=== PATIENT | male | born 1995 | race Caucasian/White ===

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

== ENCOUNTER 2017-01-03 02:57 | Emergency (ER) | payer OTHER ==
[2017-01-03 04:26] VITALS: BP 149/87
--- NOTE | 2017-01-03 04:39 | ED GENERAL ADULT ---
History of Present Illness General Chief Complaint: General Adult Stated Complaint: "REALLY DIZZY AND NAUSEOUS" X ONE WEEK PER PT Source: patient Exam Limitations: no limitations Vital Signs & Intake/Output Vital Signs & Intake/Output Vital Signs Date Time Temp Pulse Resp B/P Pulse O2 O2 Flow FiO2 Ox Delivery Rate 01/03 0426 100 22 149/87 97 Room Air Allergies Coded Allergies: NO KNOWN ALLERGIES (11/16/16) Reconcile Medications Ondansetron (Zofran Odt) 4 MG TAB.RAPDIS 1 TAB SL TID PRN nausea Triage Note: PER PT FEELING BAD AGAIN " I HAVE DONE EVERYTHING YOU TOLD ME TOO BUT IT STILL HAPPENS Triage Nurses Notes Reviewed? yes Onset: Gradual Duration: waxing and waning, months to years of similar symptoms Injury Environment: home Severity: moderate Modifying Factors: Improves With: rest. Associated Symptoms: anxiety and tremors HPI: 21 yo gentleman with a history of anxiety and tremors presents with sudden onset of a recurrence of anxiety. "I woke up and my hands were shaking real bad.... I am worried that something is really the matter." He notes that he is not taking any medications at the present. He denies SI/HI/ drug use. He is otherwise well. Past History Travel History Traveled to [place] past 21 day No Medical History Any Pertinent Medical History? 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 No Review of Systems Review of Systems Constitutional: Reports: no symptoms. EENTM: Reports: no symptoms. Respiratory: Reports: no symptoms. Cardiovascular: Reports: no symptoms. GI: Reports: no symptoms. Genitourinary: Reports: no symptoms. Musculoskeletal: Reports: no symptoms. Skin: Reports: no symptoms. Neurological/Psychological: Reports: no symptoms. Hematologic/Endocrine: Reports: no symptoms. Immunologic/Allergic: Reports: no symptoms. All Other Systems: Reviewed and Negative Physical Exam Physical Exam General Appearance: well developed/nourished, mild distress Head: atraumatic, normal appearance Eyes: Bilateral: normal appearance, PERRL, EOMI. Ears, Nose, Throat: normal pharynx, normal ENT inspection Neck: normal inspection, supple, full range of motion Respiratory: normal breath sounds, chest non-tender, no respiratory distress, quiet respiration, lungs clear Cardiovascular: regular rate/rhythm Gastrointestinal: normal bowel sounds, soft, non-tender, no organomegaly Back: normal inspection, normal range of motion Extremities: normal inspection, normal capillary refill Neurologic/Psych: no motor/sensory deficits, awake, alert, oriented x 3, anxious Reflexes: 1+: bicep (R), bicep (L), knee (R), knee (L). Skin: intact, normal color, warm/dry Comments: cn II-XII intact bilaterally. fluid finger to nose bilaterally. Core Measures ACS in differential dx? No CVA/TIA Diagnosis: No Severe Sepsis Present: No Septic Shock Present: No Progress Differential Diagnoses I considered the following diagnoses in my evaluation of the patient: panic vs depression vs other. Plan of Care: discussed at length... see below. Initial ED EKG: none Departure Departure Disposition: HOME OR SELF CARE Condition: Stable Clinical Impression Primary Impression: Dizziness Secondary Impressions: Anxiety Referrals: VINITA LOVE,CLIVE Thompson (PCP/Family) Departure Forms: Customer Survey General Discharge Information Comments benign exam, consistent with prior episodes... i encouraged close follow up with IOP and referred to neuro per patient interest. Critical Care Note Critical Care Note Critical Care Time: non-applicable
[2017-01-04] MEDS ORDERED: ATIVAN1 M1 PO (06:30)
== END 2017-01-03 05:35 ==
LOC: ERH 02:57
DX: R42 Dizziness and giddiness (principal); F41.9 Anxiety disorder, unspecified

== ENCOUNTER 2017-01-04 04:56 | Emergency (ER) | payer OTHER ==
[~2017-01-04] VITALS: Ht 170.2 cm; Wt 61.2 kg
--- NOTE | 2017-01-04 05:00 | ED GENERAL ADULT ---
History of Present Illness General Chief Complaint: Nausea, Vomiting, Diarrhea Stated Complaint: NAUSEOUS Source: patient, old records, EMS Exam Limitations: no limitations Vital Signs & Intake/Output Vital Signs & Intake/Output Vital Signs Date Time Temp Pulse Resp B/P Pulse O2 O2 Flow FiO2 Ox Delivery Rate 01/04 0602 Room Air 01/04 0459 104 22 156/91 100 Room Air Allergies Coded Allergies: NO KNOWN ALLERGIES (11/16/16) Reconcile Medications Lorazepam (Ativan) 1 MG TABLET 1 TAB PO BID PRN ANXIETY TEN...[id number] Ondansetron (Zofran Odt) 4 MG TAB.RAPDIS 1 TAB SL TID PRN nausea Triage Nurses Notes Reviewed? yes Onset: Abrupt Duration: week(s):, waxing and waning Timing: recent history Injury Environment: home Severity: moderate Modifying Factors: Improves With: rest. Associated Symptoms: "I feel anxious... I feel dizzy." HPI: 21 yo gentleman with recurrent anxiety presents with tremors, anxiety, dizziness. He shares that he has tried many medications and has seen many providers and psychiatrist "and nothing helps... no medications have helped.... I think something is really wrong with me." He was seen last night and was referred to the neurologist. He did not yet call for the neurologist. He denies SI/HI/hallucinations. Past History Medical History Any Pertinent Medical History? 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 No Review of Systems Review of Systems Constitutional: Reports: no symptoms. EENTM: Reports: no symptoms. Respiratory: Reports: no symptoms. Cardiovascular: Reports: no symptoms. GI: Reports: no symptoms. Genitourinary: Reports: no symptoms. Musculoskeletal: Reports: no symptoms. Skin: Reports: no symptoms. Neurological/Psychological: Reports: no symptoms. Hematologic/Endocrine: Reports: no symptoms. Immunologic/Allergic: Reports: no symptoms. All Other Systems: Reviewed and Negative Physical Exam Physical Exam General Appearance: well developed/nourished, alert, awake, anxious, mild distress Head: atraumatic, normal appearance Eyes: Bilateral: normal appearance, PERRL, EOMI. Ears, Nose, Throat: normal pharynx, normal ENT inspection Neck: normal inspection, supple, full range of motion Respiratory: normal breath sounds, chest non-tender, no respiratory distress, quiet respiration, lungs clear Cardiovascular: regular rate/rhythm Gastrointestinal: normal bowel sounds, soft, non-tender, no organomegaly Back: normal inspection, normal range of motion Extremities: normal inspection, normal capillary refill, normal range of motion, no edema Neurologic/Psych: no motor/sensory deficits, awake, alert, oriented x 3 Skin: intact, normal color, warm/dry Core Measures ACS in differential dx? No CVA/TIA Diagnosis: No Severe Sepsis Present: No Septic Shock Present: No Progress Differential Diagnoses I considered the following diagnoses in my evaluation of the patient: anxiety vs other psychiatric diagnosis vs other. Plan of Care: Current Medications Sig/Kirill Start time Last Medication Dose Stop Time Status Admin Lorazepam 0.5 MG ONE ONE 01/04 630 UNVr (Ativan) 01/04 631 discussed at great length with patient. (KINSEY LOVE,JUVENTINO Jeff) Initial ED EKG: none Departure Departure Disposition: HOME OR SELF CARE Condition: Stable Clinical Impression Primary Impression: Dizziness Secondary Impressions: Anxiety Referrals: VINITA LOVE,CLIVE Thompson (PCP/Family) Departure Forms: Customer Survey General Discharge Information Prescriptions: Current Visit Scripts Lorazepam (Ativan) 1 TAB PO BID PRN ANXIETY #10 TAB TEN...[id number] Comments 01/04/17, 5:17am... pt returns with similar symptoms... of note, he has been to the ED 39 times this year with negative lab work up x 8. He has declined to follow up with psychiatry and neurology. He has an appointment to see his department specialist tomorrow. 01/04/17, 6:31am... pt feeling better. he will follow up with his department specialist. he will try ativan prior to coming to ed. he denies si/hi. Critical Care Note Critical Care Note Critical Care Time: non-applicable
[2017-01-04] MEDS ORDERED: ATIVAN1 M1 PO (06:30)
[2017-01-04 06:38] VITALS: BP 131/82
== END 2017-01-04 06:39 ==
LOC: ERH 04:56
DX: R42 Dizziness and giddiness (principal); F41.9 Anxiety disorder, unspecified

== ENCOUNTER 2017-01-29 04:10 | Emergency (ER) | payer OTHER ==
[~2017-01-29] VITALS: Ht 170.2 cm; Wt 63.5 kg
--- NOTE | 2017-01-29 04:18 | ED GENERAL ADULT ---
History of Present Illness General Chief Complaint: General Adult Stated Complaint: VOMITING ? BURRITO "JUST RETURNED FROM [place]" Source: patient Exam Limitations: no limitations Vital Signs & Intake/Output Vital Signs & Intake/Output Vital Signs Date Time Temp Pulse Resp B/P Pulse O2 O2 Flow FiO2 Ox Delivery Rate 01/29 0420 97.2 86 18 145/85 95 Allergies Coded Allergies: NO KNOWN ALLERGIES (11/16/16) Reconcile Medications Lorazepam (Ativan) 1 MG TABLET 1 TAB PO BID PRN anxiety ten....[id number] Ondansetron (Zofran Odt) 4 MG TAB.RAPDIS 1 TAB SL TID PRN anxiety Triage Nurses Notes Reviewed? yes Onset: Gradual Duration: day(s): Timing: recent history Injury Environment: on a vacation to [place] Severity: mild Modifying Factors: Improves With: rest. Associated Symptoms: vomiting HPI: 21 yo gentleman with history disorader and frequent visitis to ED, presents with 3 days of intermittent vomiting and anxiety. He notes that he ate a burrito 4 days ago. The next day, he developed vomiting and nausea, without diarrhea, fever, chills. He notes, "I know that I am having another anxiety attack." He is doing better presently, last vomiting was yesterday. Past History Medical History Any Pertinent Medical History? 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 No Review of Systems Review of Systems Constitutional: Reports: no symptoms. EENTM: Reports: no symptoms. Respiratory: Reports: no symptoms. Cardiovascular: Reports: no symptoms. GI: Reports: no symptoms. Genitourinary: Reports: no symptoms. Musculoskeletal: Reports: no symptoms. Skin: Reports: no symptoms. Neurological/Psychological: Reports: no symptoms. Hematologic/Endocrine: Reports: no symptoms. Immunologic/Allergic: Reports: no symptoms. All Other Systems: Reviewed and Negative Physical Exam Physical Exam General Appearance: well developed/nourished, no apparent distress Head: atraumatic, normal appearance Eyes: Bilateral: normal appearance. Ears, Nose, Throat: normal pharynx, normal ENT inspection Neck: normal inspection, supple, full range of motion Respiratory: normal breath sounds, chest non-tender, no respiratory distress, quiet respiration, lungs clear Cardiovascular: regular rate/rhythm Gastrointestinal: normal bowel sounds, soft, non-tender, no organomegaly Back: normal inspection Extremities: normal inspection, normal capillary refill, normal range of motion Neurologic/Psych: no motor/sensory deficits, awake, alert, oriented x 3 Skin: intact, normal color, warm/dry Core Measures ACS in differential dx? No CVA/TIA Diagnosis: No Severe Sepsis Present: No Septic Shock Present: No Progress Differential Diagnoses I considered the following diagnoses in my evaluation of the patient: food poisoning vs anxiety vs other. Plan of Care: well appearing in ED with benign exam... wrote rx for supportive medications and encouraged close follow up with [facility] and pmd. Initial ED EKG: none Departure Departure Disposition: HOME OR SELF CARE Condition: Stable Clinical Impression Primary Impression: Anxiety Secondary Impressions: Vomiting Referrals: VINITA LOVE,CLIVE Thompson (PCP/Family) Departure Forms: Customer Survey General Discharge Information Prescriptions: Current Visit Scripts Ondansetron (Zofran Odt) 1 TAB SL TID PRN anxiety #10 TAB Lorazepam (Ativan) 1 TAB PO BID PRN anxiety #10 TAB ten....[id number] Critical Care Note Critical Care Note Critical Care Time: non-applicable
[2017-01-29 04:20] VITALS: BP 145/85
[2017-01-29] MEDS ORDERED: ATIVAN1 M1 PO (04:40)
[2017-01-29] MEDS ORDERED: ZOFRAN ODT4 M1 SL (04:40)
== END 2017-01-29 04:50 ==
LOC: ERH 04:10
DX: F41.9 Anxiety disorder, unspecified (principal); R11.10 Vomiting, unspecified
CPT/HCPCS: J3101

== ENCOUNTER 2017-02-14 02:06 | Emergency (ER) | payer OTHER ==
[~2017-02-14] VITALS: Ht 172.7 cm; Wt 54.4 kg
[2017-02-14 03:24] VITALS: BP 133/93
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
== END 2017-02-14 04:22 ==
LOC: ERH 02:06
DX: F41.9 Anxiety disorder, unspecified (principal); W51.XXXA Accidental striking against or bumped into by another person, initial encounter; Y93.71 Activity, boxing; Y92.9 Unspecified place or not applicable

== ENCOUNTER 2017-02-21 00:45 | Emergency (ER) | payer OTHER ==
[~2017-02-21] VITALS: Ht 170.2 cm; Wt 61.2 kg
[2017-02-21 01:07] VITALS: BP 137/83
--- NOTE | 2017-02-21 02:08 | CT SCAN REPORT ---
EXAMINATION: NONCONTRAST HEAD CT NONCONTRAST CERVICAL SPINE CT INDICATION INFORMATION: Head injury. Pain. COMPARISON: 11/14/2016 TECHNIQUE: Separate noncontrast CT examinations of the head and cervical spine were performed. Coronal and sagittal images were created for each examination at the technologist workstation. FINDINGS: Head: There is no evidence of acute intracranial hemorrhage or territorial infarction. No abnormal mass effect or midline shift is seen. Simental to white matter differentiation is well preserved. No extra-axial fluid collections are identified. No hydrocephalus. No significant volume loss. There is no abnormal attenuation within the brain parenchyma. The osseous structures and soft tissues are normal. The mastoid air cells and visualized portions of the paranasal sinuses are well aerated. Cervical spine: There is anatomic alignment of the vertebral bodies and posterior elements. The atlantoaxial and atlantooccipital articulations are intact. Vertebral body heights and intervertebral disc spaces are maintained. No evidence of acute fracture. No prevertebral soft tissue swelling. Visualized portions of the lung apices are unremarkable. The thyroid gland is unremarkable. IMPRESSION: 1. No acute intracranial findings. 2. No acute cervical spine fracture or malalignment..
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
== END 2017-02-21 02:40 ==
LOC: ERH 00:45
DX: S06.0X0A Concussion without loss of consciousness, initial encounter (principal); W50.1XXA Accidental kick by another person, initial encounter; Y93.75 Activity, martial arts; Y92.9 Unspecified place or not applicable

== ENCOUNTER 2017-02-25 21:32 | Emergency (ER) | payer OTHER ==
[~2017-02-25] VITALS: Ht 170.2 cm; Wt 61.2 kg
[2017-02-25 22:39] LABS: ABSOLUTE BASOPHIL COUNT 0 /CUMM (0.0-0.2); ABSOLUTE EOSINOPHIL COUNT 0.2 /CUMM (0.0-0.7); ABSOLUTE GRANULOCYTE CT 6.7 /CUMM (1.4-6.5); ABSOLUTE LYMPH COUNT 2.3 /CUMM (1.2-3.4); ABSOLUTE MONOCYTE COUNT 0.9 /CUMM (0.10-0.60); BASOPHIL % 0.4 % (0.0-2.0); EOSINOPHIL % 1.6 % (0-5); GRANULOCYTE % 66.3 % (42.2-75.2); HEMATOCRIT 46.9 % (42-52); MEAN CORPUSCULAR HGB 28.8 PG (27.0-31.0); MEAN CORPUSCULAR HGB CONC 33.2 G/DL (33.0-37.0); MEAN CORPUSCULAR VOLUME 86.8 FL (80.0-94.0); MEAN PLATELET VOLUME 7.9 FL (7.4-10.4); PLATELET COUNT 237 /CUMM (130-400); RBC DISTRIBUTION WIDTH 13.9 % (11.5-14.5); RED BLOOD CELL CT 5.41 /CUMM (4.70-6.10); WHITE BLOOD CELL COUNT 10.1 /CUMM (4.8-10.8)
--- NOTE | 2017-02-25 22:56 | RADIOLOGY REPORT ---
EXAMINATION: XR CHEST CLINICAL INFORMATION: Chest pain COMPARISON: Chest x-ray 05/13/2016 TECHNIQUE: 2 views of the chest were obtained. FINDINGS: No significant abnormality is noted involving the heart, lungs, mediastinum, bony thorax or soft tissues. IMPRESSION: Unremarkable examination.
[2017-02-26 00:30] VITALS: BP 138/69
--- NOTE | 2017-02-26 00:39 | ED CARDIAC/CP/PALPITATIONS ---
History of Present Illness General Chief Complaint: General Adult Stated Complaint: CHEST PAIN, DIFF BREATHING Source: patient, old records Exam Limitations: no limitations Vital Signs & Intake/Output Vital Signs & Intake/Output Vital Signs Date Time Temp Pulse Resp B/P B/P Pulse O2 O2 Flow FiO2 Mean Ox Delivery Rate 02/257 97.8 81 18 144/87 100 Room Air ED Intake and Output 02/26 0000 02/25 1200 Intake Total Output Total Balance Patient 135 lb Weight Weight Reported by Patient Measurement Method Allergies Coded Allergies: NO KNOWN ALLERGIES (11/16/16) Reconcile Medications No Known Home Medications Triage Note: PT TO TRIAGE WITH C/O MIDSTERNAL CHEST PAIN 5/10 ON/OFF FOR 3 DAYS, SOB AND NAUSEA. PT STATES IT COULD BE BECAUSE OF ANXIETY. VSS. NO RESP DISTRESS NOTED IN TRIAGE. PT WAS SEEN IN ER FOR SAME 5 DAYS AGO. Triage Nurses Notes Reviewed? yes HPI: Patient presents for evaluation of severe intermittent chest pain episodes that began abruptly about 3 days ago. Patient states he episodes last about 30-60 seconds and occur less than 1-2 times per day. He states during that time however he has felt more or less constantly short of breath and nauseous. He denies any drug or alcohol use. He is beginning to suspect that the underlying cause for his symptoms is anxiety but he states he does not wish to take any medication for this. He has counseling instead. Past History Travel History Traveled to [place] past 21 day No Medical History Any Pertinent Medical History? 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 No Review of Systems Review of Systems Constitutional: Reports: no symptoms. EENTM: Reports: no symptoms. Respiratory: Reports: short of breath. Cardiovascular: Reports: chest pain. GI: Reports: no symptoms. Genitourinary: Reports: no symptoms. Musculoskeletal: Reports: no symptoms. Skin: Reports: no symptoms. Neurological/Psychological: Reports: no symptoms. Hematologic/Endocrine: Reports: no symptoms. Immunologic/Allergic: Reports: no symptoms. All Other Systems: Reviewed and Negative Physical Exam Physical Exam Cardiovascular: see below Comments: Gen.: Well-nourished, well-developed, no acute respiratory distress. Head: Normocephalic, atraumatic. Eyes: Normal inspection bilaterally Ears: Normal inspection bilaterally Nose: Normal inspection Throat/mouth : Moist mucosa Neck: Supple, full range of motion, no goiter Heart: Regular rate and rhythm, no murmurs rubs or gallops Lungs: Clear to auscultation bilaterally with normal air entry Chest: Nontender Back: Normal range of motion Abdomen: Soft, nontender, nondistended, normal bowel sounds Extremities: Normal range of motion grossly, equal radial pulses, no cyanosis clubbing or edema Neurologic: Cranial nerves grossly intact, speech is clear Skin: warm and dry Psychiatric: Calm, cooperative, no apparent delusions or hallucinations, anxious appearing, bouncing knees Core Measures ACS in differential dx? No Severe Sepsis Present: No Septic Shock Present: No Progress Differential Diagnosis: hyperventilation, pericarditis, pneumonia, pneumothorax, anxiety Plan of Care: Orders Procedure Date/time Status TROPONIN LEVEL 02/25 2218 Complete MAGNESIUM 02/25 2218 Complete CBC WITHOUT DIFFERENTIAL 02/25 2218 Complete BASIC METABOLIC PANEL 02/25 2218 Complete EKG 02/25 2218 Active Laboratory Tests 02/25/17 2231: Anion Gap 13, Estimated GFR > 60, BUN/Creatinine Ratio 21.8, Glucose 83, Calcium 9.5, Magnesium 1.7, Troponin I < 0.01, CBC w Diff NO MAN DIFF REQ, RBC 5.41, MCV 86.8, MCH 28.8, RDW 13.9, MPV 7.9, Gran % 66.3, Lymphocytes % 23.1, Monocytes % 8.6, Eosinophils % 1.6, Basophils % 0.4, Absolute Granulocytes 6.7 H, Absolute Lymphocytes 2.3, Absolute Monocytes 0.9 H, Absolute Eosinophils 0.2, Absolute Basophils 0, PUBS MCHC 33.2 Diagnostic Imaging: Discussed w/RAD: Radiology Read. CXR Impression: PATIENT: GERMÁN MONTES JR PRESENT AGE: 21 PATIENT ACCOUNT NO: [id number] : 97 LOCATION: [facility] ORDERING PHYSICIAN: GISELL VILLALTA MD SERVICE DATE: 02/25/17-2217 EXAM TYPE: RAD - XRY-CHEST XRAY, PA AND LATERAL EXAMINATION: XR CHEST CLINICAL INFORMATION: Chest pain COMPARISON: Chest x-ray 05/13/2016 TECHNIQUE: 2 views of the chest were obtained. FINDINGS: No significant abnormality is noted involving the heart, lungs, mediastinum, bony thorax or soft tissues. IMPRESSION: Unremarkable examination. DICTATED BY: DONTA COLES MD DATE/TIME DICTATED:02/25/172251 IT QUALITY ANALYST:DAVID DATE/TIME TRANSCRIBED:02/25/172251 CONFIDENTIAL, DO NOT COPY WITHOUT APPROPRIATE AUTHORIZATION. <Electronically signed in Other Vendor System> SIGNED BY: DONTA OCLES MD 02/25/172255 Initial ED EKG: NSR, rate (77), LVH (probable), rsr' in v1-2 Prior EKG: changed (no rsr' on prior) Departure Departure Disposition: HOME OR SELF CARE Condition: Stable Clinical Impression Primary Impression: Anxiety Referrals: TUAN LOVE,VANESSA Kerr (PCP/Family) Additional Instructions: Xanax as prescribed. Follow-up with Dr. Hernandez on Tuesday for reevaluation. Return if any concerns or sudden worsening. Departure Forms: Customer Survey General Discharge Information Prescriptions: Current Visit Scripts Alprazolam (Xanax) 1 TAB PO BIDP PRN anxiety #10 TAB Critical Care Note Critical Care Note Critical Care Time: non-applicable
[2017-02-26] MEDS ORDERED: XANAX0.25 M1 PO (00:56)
== END 2017-02-26 01:09 ==
LOC: ERH 21:32
PROVIDERS: Emergency Medicine
DX: F41.9 Anxiety disorder, unspecified (principal); R07.89 Other chest pain
CPT/HCPCS: 93005; 93010

== ENCOUNTER 2017-02-28 21:00 | Emergency (ER) | payer OTHER ==
[~2017-02-28] VITALS: Ht 170.2 cm; Wt 61.2 kg
--- NOTE | 2017-02-28 21:46 | ED GENERAL ADULT ---
History of Present Illness General Chief Complaint: General Adult Stated Complaint: "JAW PAIN, LEGS FEEL HEAVY" Source: patient Exam Limitations: no limitations Vital Signs & Intake/Output Vital Signs & Intake/Output Vital Signs Date Time Temp Pulse Resp B/P B/P Pulse O2 O2 Flow FiO2 Mean Ox Delivery Rate 02/28 2233 98.0 73 17 132/83 97 Room Air 02/29 2212 Room Air 02/29 2124 98.0 77 18 138/89 99 Room Air Allergies Coded Allergies: NO KNOWN ALLERGIES (11/16/16) Reconcile Medications Alprazolam (Xanax) 0.25 MG TABLET 1 TAB PO BIDP PRN anxiety Triage Note: PT ED C/O JAW PAIN, LEGS FEELING HEAVY WITH TROUBLE WALKING AND TINGELING IN THE FACE. SAW PCP TODAY, LABS WERE NORMAL. DENIES PAIN IN TRIAGE "I THINK I'M GOING TO HAVE A STROKE" ALL NEUROS INTACT. HAS RECENTLY CUT BACK ON FOOD INTAKE "TO MAKE WEIGHT" FOR MMA. "BUT MY LABS WERE GOOD TODAY" Triage Nurses Notes Reviewed? yes Onset: Gradual Duration: week(s):, waxing and waning Timing: recent history Injury Environment: home Severity: mild Modifying Factors: Improves With: rest. Associated Symptoms: anxiety HPI: 21 yo gentleman presents with a constellation of symptoms including dizziness, anxiety, nausea, off and on, for the past several months. He notes that he has been following up with his doctor, sees a counselor, and does "everything I'm supposed to do." He notes that he is able to drink, ambulate, think without problem. He is otherwise well. Denies Si/HI/hallucinations/anxiety. Past History Travel History Traveled to [place] past 21 day No Medical History Any Pertinent Medical History? 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 No Review of Systems Review of Systems Constitutional: Reports: no symptoms. EENTM: Reports: no symptoms. Respiratory: Reports: no symptoms. Cardiovascular: Reports: no symptoms. GI: Reports: no symptoms. Genitourinary: Reports: no symptoms. Musculoskeletal: Reports: no symptoms. Skin: Reports: no symptoms. Neurological/Psychological: Reports: no symptoms. Hematologic/Endocrine: Reports: no symptoms. Immunologic/Allergic: Reports: no symptoms. All Other Systems: Reviewed and Negative Physical Exam Physical Exam General Appearance: well developed/nourished, no apparent distress Head: atraumatic, normal appearance Eyes: Bilateral: normal appearance. Ears, Nose, Throat: normal pharynx, normal ENT inspection Neck: normal inspection, supple, full range of motion Respiratory: normal breath sounds, chest non-tender, no respiratory distress, quiet respiration, lungs clear Cardiovascular: regular rate/rhythm Gastrointestinal: normal bowel sounds, soft, non-tender Back: normal inspection Extremities: normal inspection, normal capillary refill, normal range of motion, no edema Neurologic/Psych: no motor/sensory deficits, awake, alert, oriented x 3 Skin: intact, normal color Core Measures ACS in differential dx? No CVA/TIA Diagnosis: No Severe Sepsis Present: No Septic Shock Present: No Progress Differential Diagnoses I considered the following diagnoses in my evaluation of the patient: vertigo vs other. Plan of Care: benign exam, normal labs on february 25... pt referred to pmd... see below. Initial ED EKG: none Departure Departure Disposition: HOME OR SELF CARE Condition: Stable Clinical Impression Primary Impression: Dizziness Secondary Impressions: Anxiety Referrals: TUAN LOVE,VANESSA Kerr (PCP/Family) Departure Forms: Customer Survey General Discharge Information Comments normal labs on february 25, 2017... benign exam... pt stable for follow up with pmd. I offered meclizine, zofran. He declines. Critical Care Note Critical Care Note Critical Care Time: non-applicable
[2017-02-28 22:33] VITALS: BP 132/83
== END 2017-02-28 22:37 ==
LOC: ERH 21:00
DX: R42 Dizziness and giddiness (principal); F41.9 Anxiety disorder, unspecified

== ENCOUNTER 2017-03-04 02:53 | Emergency (ER) | payer OTHER ==
[~2017-03-04] VITALS: Ht 175.3 cm; Wt 61.2 kg
[2017-03-04 03:14] VITALS: BP 147/94
--- NOTE | 2017-03-04 04:03 | ED PSYCHIATRIC COMPLAINT ---
History of Present Illness General Chief Complaint: General Adult Stated Complaint: "+N+V-D, VOMITING SINCE 1700,DIZZY,BLURRED VISION" Source: patient, old records Exam Limitations: no limitations Vital Signs & Intake/Output Vital Signs & Intake/Output Vital Signs Date Time Temp Pulse Resp B/P B/P Pulse O2 O2 Flow FiO2 Mean Ox Delivery Rate 03/04 0314 98.9 82 18 147/94 97 Room Air Allergies Coded Allergies: NO KNOWN ALLERGIES (11/16/16) Reconcile Medications Alprazolam (Xanax) 0.25 MG TABLET 1 TAB PO BIDP PRN anxiety Triage Note: PT TO ED C/O NAUSEA AND BLURRY VISION. Triage Nurses Notes Reviewed? yes Onset: Just prior to arrival Duration: hour(s):, constant, continues in ED Timing: recent history Severity: severe Associated Symptoms: anxiety, impaired concentration HPI: Several hours prior to admission patient with with friend was mother he then became sick to his stomach with nausea vomiting blurry vision increased anxiety and dread. He denies fever chills chest pain shortness of breath diarrhea abdominal pain dysuria rash bleeding suicidal ideation homicidal ideation. Past History Travel History Traveled to [place] past 21 day No Medical History Any Pertinent Medical History? 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 No Review of Systems Review of Systems Constitutional: Reports: no symptoms. EENTM: Reports: no symptoms. Respiratory: Reports: no symptoms. Cardiovascular: Reports: no symptoms. GI: Reports: no symptoms. Genitourinary: Reports: no symptoms. Musculoskeletal: Reports: no symptoms. Skin: Reports: no symptoms. Neurological/Psychological: Reports: see HPI, anxiety, confusion, emotional problems. Hematologic/Endocrine: Reports: no symptoms. Immunologic/Allergic: Reports: no symptoms. All Other Systems: Reviewed and Negative Physical Exam Physical Exam General Appearance: well developed/nourished, alert, awake, anxious, mild distress, thin Head: atraumatic, normal appearance Eyes: Bilateral: PERRL, EOMI. Ears, Nose, Throat: normal pharynx, normal ENT inspection, hearing grossly normal Neck: normal inspection, supple Respiratory: normal breath sounds Cardiovascular: regular rate/rhythm Gastrointestinal: soft, non-tender Extremities: normal range of motion Neurological/Psychiatric: no motor/sensory deficits, awake, agitated, alert, anxious, flower cutter II-XII nml as tested Appearance/Memory/Insight: impaired insight Behavoir/Eye Contact/Speech: cooperative, normal speech Thoughts/Hallucinations: no apparent hallucination Skin: intact, normal color, warm/dry SAD PERSONS Done? patient not suicidal Progress Differential Diagnosis: drug intoxication, drug overdose, drug withdrawal Plan of Care: outpatient Departure Departure Time of Disposition: 401 Disposition: HOME OR SELF CARE Condition: Stable Clinical Impression Primary Impression: Anxiety as acute reaction to gross stress Referrals: TUAN LOVE,VANESSA Kerr (PCP/Family) Departure Forms: Customer Survey General Discharge Information
== END 2017-03-04 04:11 ==
LOC: ERH 02:53
DX: F41.1 Generalized anxiety disorder (principal); F43.8 Other reactions to severe stress

== ENCOUNTER 2017-03-13 17:42 | Emergency (ER) | payer OTHER ==
[~2017-03-13] VITALS: Ht 170.2 cm; Wt 61.2 kg
[2017-03-13 17:58] VITALS: BP 143/87
--- NOTE | 2017-03-13 18:29 | ED GENERAL ADULT ---
History of Present Illness General Chief Complaint: Nausea, Vomiting, Diarrhea Stated Complaint: NAUSEA Source: patient, old records Exam Limitations: no limitations Vital Signs & Intake/Output Vital Signs & Intake/Output Vital Signs Date Time Temp Pulse Resp B/P B/P Pulse O2 O2 Flow FiO2 Mean Ox Delivery Rate 03/13 1758 99.7 75 16 143/87 97 Room Air Allergies Coded Allergies: NO KNOWN ALLERGIES (11/16/16) Reconcile Medications Alprazolam (Xanax) 0.25 MG TABLET 1 TAB PO BIDP PRN anxiety Escitalopram Oxalate (Lexapro) 10 MG TABLET 1 TAB PO DAILY ANXIETY Triage Note: PT STATES HE HAS HAD NAUSEA AND VOMITING FOR THE PAST 2 DAYS. PT DENIES ANY PAIN IN ABD. PT STATES KNOW DIARRHEA Triage Nurses Notes Reviewed? yes HPI: Patient was at sparring today when he began to feel very anxious and then became nauseous. Patient tried deep breathing exercises without relief. Since arrival to the emergency department he is feeling better however he remains a little nauseous. Patient denies any head injury. There is no blurry vision. There is no vomiting. There is no chest pain or chest tightness. Patient states that he really needs to get his anxiety under control. Patient states that he was on Lexapro and after approximately 2 weeks he began to feel a little bit better but then he read the side effects and that made him more anxious so stopped taking it. Patient denies any suicidal or homicidal ideations. Patient does follow up with his therapist. Past History Travel History Traveled to [place] past 21 day No Medical History Any Pertinent Medical History? 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 No Review of Systems Review of Systems Constitutional: Reports: no symptoms. EENTM: Reports: no symptoms. Respiratory: Reports: no symptoms. Cardiovascular: Reports: no symptoms. GI: Reports: see HPI, nausea. Genitourinary: Reports: no symptoms. Musculoskeletal: Reports: no symptoms. Skin: Reports: no symptoms. Neurological/Psychological: Reports: see HPI, anxiety. Hematologic/Endocrine: Reports: no symptoms. Immunologic/Allergic: Reports: no symptoms. All Other Systems: Reviewed and Negative Physical Exam Physical Exam General Appearance: well developed/nourished, alert, awake, anxious Head: atraumatic, normal appearance Eyes: Bilateral: PERRL, EOMI. Ears, Nose, Throat: normal pharynx, normal ENT inspection Neck: normal inspection, supple, full range of motion Respiratory: normal breath sounds, chest non-tender, no respiratory distress, lungs clear Cardiovascular: regular rate/rhythm, normal peripheral pulses Gastrointestinal: normal bowel sounds, soft, non-tender, no organomegaly Back: normal inspection, normal range of motion Extremities: normal inspection, normal capillary refill, normal range of motion, no edema Neurologic/Psych: no motor/sensory deficits, awake, alert, oriented x 3, normal gait, normal mood/affect Skin: intact, normal color, warm/dry Lymphatic: no anterior cervical papi Core Measures ACS in differential dx? No CVA/TIA Diagnosis: No Severe Sepsis Present: No Septic Shock Present: No Progress Differential Diagnoses I considered the following diagnoses in my evaluation of the patient: [ANXIETY] Plan of Care: Current Medications Sig/Kirill Start time Last Medication Dose Stop Time Status Admin Ondansetron HCl 4 MG ONCE ONE 03/13 1830 AC (Zofran) 03/13 1831 Initial ED EKG: none Departure Departure Disposition: HOME OR SELF CARE Condition: Stable Clinical Impression Primary Impression: Nausea Secondary Impressions: Anxiety Referrals: TUAN LOVE,VANESSA Kerr (PCP/Family) Additional Instructions: FOLLOW UP WITH YOUR THERAPIST TAKE LEXAPRO DIRECTED RETURN FOR ANY CONCERNS Departure Forms: Customer Survey General Discharge Information Prescriptions: Current Visit Scripts Escitalopram Oxalate (Lexapro) 1 TAB PO DAILY #30 TAB Critical Care Note Critical Care Note Critical Care Time: non-applicable
[2017-03-13] MEDS ORDERED: LEXAPRO10 M1 PO (18:37)
== END 2017-03-13 18:43 ==
LOC: ERH 17:42
DX: F41.9 Anxiety disorder, unspecified (principal); R11.0 Nausea

== ENCOUNTER 2017-03-15 17:52 | Emergency (ER) | payer OTHER ==
[~2017-03-15] VITALS: Ht 170.2 cm; Wt 61.2 kg
[~2017-03-15 17:52] MED LIST changes: +LEXAPRO10 M1 PO
[2017-03-15 18:04] VITALS: BP 122/75
[2017-03-15 19:09] LABS: ABSOLUTE BASOPHIL COUNT 0 /CUMM (0.0-0.2); ABSOLUTE EOSINOPHIL COUNT 0.1 /CUMM (0.0-0.7); ABSOLUTE GRANULOCYTE CT 6.9 /CUMM (1.4-6.5); ABSOLUTE LYMPH COUNT 1.9 /CUMM (1.2-3.4); ABSOLUTE MONOCYTE COUNT 0.6 /CUMM (0.10-0.60); BASOPHIL % 0.4 % (0.0-2.0); EOSINOPHIL % 1.5 % (0-5); GRANULOCYTE % 72.2 % (42.2-75.2); HEMATOCRIT 46.6 % (42-52); MEAN CORPUSCULAR HGB 28.7 PG (27.0-31.0); MEAN CORPUSCULAR HGB CONC 33.4 G/DL (33.0-37.0); MEAN CORPUSCULAR VOLUME 85.9 FL (80.0-94.0); MEAN PLATELET VOLUME 7.9 FL (7.4-10.4); PLATELET COUNT 304 /CUMM (130-400); RBC DISTRIBUTION WIDTH 14.1 % (11.5-14.5); RED BLOOD CELL CT 5.42 /CUMM (4.70-6.10); WHITE BLOOD CELL COUNT 9.6 /CUMM (4.8-10.8)
--- NOTE | 2017-03-15 19:30 | ED GI/GU/ABDOMINAL COMPLAINT ---
History of Present Illness General Chief Complaint: Nausea, Vomiting, Diarrhea Stated Complaint: NAUSEA Source: patient, old records Exam Limitations: no limitations Vital Signs & Intake/Output Vital Signs & Intake/Output Vital Signs Date Time Temp Pulse Resp B/P B/P Pulse O2 O2 Flow FiO2 Mean Ox Delivery Rate 03/15 1804 98.9 80 15 122/75 100 Room Air Allergies Coded Allergies: NO KNOWN ALLERGIES (11/16/16) Reconcile Medications Alprazolam (Xanax) 0.25 MG TABLET 1 TAB PO BIDP PRN anxiety Escitalopram Oxalate (Lexapro) 10 MG TABLET 1 TAB PO DAILY ANXIETY Ondansetron (Zofran Odt) 4 MG TAB.RAPDIS 1 TAB SL TID PRN nausea Triage Note: PT REPORTING HE HAS BEEN HAVING NAUSEA FOR PAST SEVERAL DAY, ABLE TO TOLERATE PO, DRINKING GATORADE IN TRIAGE. SAW PCP AND HAD BLOODWORK DONE IMMEDIATELY BEFORE COMING TO ED STATING "I FIGURED ID JUST STOP BY" Triage Nurses Notes Reviewed? yes Onset: Abrupt Duration: day(s): (1), constant Timing: recent history Quality/Severity: nausea Severity Numbers: 5 Location: generalized abdomen Radiation: no radiation Activities at Onset: none Prior Abdominal Problems: similar symptoms No Modifying Factors: none Associated Symptoms: denies HPI: 21-year-old male with history of anxiety presents to the ER for evaluation complaining of nausea for the past 1 day. He's been seen numerous times the past for similar complaints. He is scheduled to see his primary care doctor tomorrow. Has not taken anything for his symptoms however states he's been taking. Since being here he has been able to tolerate gatorade. The patient denies any abdominal pain no vomiting diarrhea constipation. He has been seen numerous times in the past for similar complaints with no known cause identified. Patient denies anxiety recent new stressors chest pain shortness of breath fever chills or urinary complaints no modifying factors or associated symptoms otherwise (JAZZ GLASS,JODEE) Past History Travel History Traveled to [place] past 21 day No Medical History Any Pertinent Medical History? 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 No (JODEE SAEZ) Review of Systems Review of Systems Constitutional: Reports: see HPI. All Other Systems: Reviewed and Negative Comments Review of systems: See HPI, All other systems negative. Constitutional, no chills no fever, no malaise HEENT: no sore throat no congestion, no ear pain Cardiovascular: No chest pain , no palpitation , no orthopnea Skin: no rashes, no change in skin Respiratory: No dyspnea no cough no sputum GI: nausea no vomiting, no diarrhea, no bloating/constipation : No dysuria Muscle skeletal: No joint pain, no joint swelling, no back pain, no neck pain, Neurologic: no headache Psych: No stress Heme/endocrine: No bruising Immunology: No lymphadenopathy (JODEE SAEZ) Physical Exam Physical Exam General Appearance: well developed/nourished, no apparent distress, alert, awake , comfortable Gastrointestinal: normal bowel sounds, soft, non-tender Comments: Well-developed well-nourished person in no acute distress HEENT: Normal EENT exam; PERRL, EOMI, no nystagmus. HEAD is atraumatic. moist mucous membranes. Neck: Supple, no lymphadenopathy, normal range of motion without pain or tenderness Back: Nontender, no CVA tenderness. Full range of motion Cardiovascular: Regular rate and rhythms no murmurs rubs or gallops, normal JVP Respiratory: Chest nontender.There were no bony deformities, no asymmetry. No respiratory distress. Patient speaking in full complete sentences. Breath sounds clear to auscultation bilaterally: NO W/R/R Abdomen: Soft, nontender nondistended, no appreciable organomegaly. Normal bowel sounds. No rebound/guarding, No appreciable enlargement of the abdominal aorta, No ascites. Extremity: No edema, full range of motion of extremities, normal and equal pulses bilaterally, 5 out of 5 strength noted to bilateral upper and lower extremities Neuro: Alert oriented x3, motor sensory normal, cranial nerves II through XII grossly intact. There were no obvious focal neurologic abnormalities. Skin: No appreciable rash on exposed skin, skin is warm and dry. Psych: Mood and affect is normal, memory and judgment is normal. Core Measures ACS in differential dx? No Severe Sepsis Present: No Septic Shock Present: No (JODEE SAEZ) Progress Differential Diagnosis: appendicitis, biliary colic, bowel obstruction, colon cancer, cholecystitis, diverticulitis, gastritis, hepatitis, hernia, pancreatitis, peptic ulcer, PUD/GERD, perforated viscous, pyelonephritis, SBO Plan of Care: Orders Procedure Date/time Status LIPASE 03/15 1857 Complete COMPREHENSIVE METABOLIC PANEL 03/15 1857 Complete CBC WITHOUT DIFFERENTIAL 03/15 1857 Complete AMYLASE 03/15 1857 Complete Laboratory Tests 03/15/17 1903: Anion Gap 13, Estimated GFR > 60, BUN/Creatinine Ratio 13.0, Glucose 99, Calcium 9.8, Total Bilirubin 0.8, AST 24, ALT 31, Alkaline Phosphatase 72, Total Protein 7.8, Albumin 5.0, Globulin 2.8, Albumin/Globulin Ratio 1.8, Amylase 82, Lipase 120, CBC w Diff NO MAN DIFF REQ, RBC 5.42, MCV 85.9, MCH 28.7, RDW 14.1, MPV 7.9 , Gran % 72.2, Lymphocytes % 19.6 L, Monocytes % 6.3, Eosinophils % 1.5, Basophils % 0.4, Absolute Granulocytes 6.9 H, Absolute Lymphocytes 1.9, Absolute Monocytes 0.6, Absolute Eosinophils 0.1, Absolute Basophils 0, PUBS MCHC 33.4 Labs ordered from triage patient has been seen numerous times in the past for similar complaints he is tolerating Gatorade here without any vomiting his abdomen is soft nontender. I discussed with the patient at length all of their results. He is tolerating by mouth challenge I had an extensive conversation regarding need for close follow up with their primary care physician this week as well as return precautions. I answered all of their questions, they feel comfortable with the plan and follow-up care. I discussed with the patient/family the medications that they will receive. I gave them signs and symptoms that could indicate an adverse reaction. I have advised them to limit their activities until they can see how they respond to the medication. (JODEE SAEZ) Initial ED EKG: none (JODEE SAEZ) Departure Departure Time of Disposition: 1930 Disposition: HOME OR SELF CARE Condition: Stable Clinical Impression Primary Impression: Nausea Referrals: TUAN LOVE,VANESSA Kerr (PCP/Family) Additional Instructions: Follow-up with your primary care physician as scheduled Zofran for nausea clear liquids advance diet as tolerated return with any concerns. this was sent to [facility] Departure Forms: Customer Survey General Discharge Information Prescriptions: Current Visit Scripts Ondansetron (Zofran Odt) 1 TAB SL TID PRN nausea #10 TAB (JAZZ GLASS,JODEE) PA/ASBESTOS PIPE SUPERVISOR Co-Sign Statement Statement: ED Attending supervision documentation- [] I saw and evaluated the patient. I have also reviewed all the pertinent lab results and diagnostic results. I agree with the findings and the plan of care as documented in the PA's/ASBESTOS PIPE SUPERVISOR's documentation. [X] I have reviewed the ED Record and agree with the PA's/ASBESTOS PIPE SUPERVISOR's documentation. [] Additions or exceptions (if any) to the PAs/ASBESTOS PIPE SUPERVISOR's note and plan are summarized below: [] (ELVIS LOVE,GABY Gee)
[2017-03-15] MEDS ORDERED: ZOFRAN ODT4 M1 SL (19:32)
== END 2017-03-15 19:35 ==
LOC: ERH 17:52
PROVIDERS: Emergency Medicine
DX: R11.0 Nausea (principal)

== ENCOUNTER 2017-03-25 23:51 | Emergency (ER) | payer OTHER ==
[~2017-03-25] VITALS: Ht 170.2 cm; Wt 61.2 kg
--- NOTE | 2017-03-26 01:17 | ED AMS/SEIZURE/WEAK/DIZZY ---
History of Present Illness General Chief Complaint: General Adult Stated Complaint: PT C/O GENERAL WEAKNESS S/P RUNNING MARATHON Source: patient Exam Limitations: no limitations Vital Signs & Intake/Output Vital Signs & Intake/Output Vital Signs Date Time Temp Pulse Resp B/P B/P Pulse O2 O2 Flow FiO2 Mean Ox Delivery Rate 03/26 0130 99.9 94 18 135/90 98 Room Air Allergies Coded Allergies: NO KNOWN ALLERGIES (11/16/16) Reconcile Medications Alprazolam (Xanax) 0.25 MG TABLET 1 TAB PO BIDP PRN anxiety Escitalopram Oxalate (Lexapro) 10 MG TABLET 1 TAB PO DAILY ANXIETY Ondansetron (Zofran Odt) 4 MG TAB.RAPDIS 1 TAB SL TID PRN nausea Triage Nurses Notes Reviewed? yes Onset: Gradual Duration: hour(s): Timing: recent history Injury Environment: home Severity: mild Modifying Factors: Improves With: rest. Associated Symptoms: tired, body aches HPI: 21 yo gentleman presents with fatigue and body aches after running a marathon earlier today. He notes, "I just feel real tired... I didn't eat much before the marathon... And now my muscles really aches." He denies fever, chills, dypsnea, chest pain, shortness of breath. He is otherwise well. Past History Medical History Any Pertinent Medical History? 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 No Review of Systems Review of Systems Constitutional: Reports: no symptoms. EENTM: Reports: no symptoms. Respiratory: Reports: no symptoms. Cardiovascular: Reports: no symptoms. GI: Reports: no symptoms. Genitourinary: Reports: no symptoms. Musculoskeletal: Reports: no symptoms. Skin: Reports: no symptoms. Neurological/Psychological: Reports: no symptoms. Hematologic/Endocrine: Reports: no symptoms. Immunologic/Allergic: Reports: no symptoms. All Other Systems: Reviewed and Negative Physical Exam Physical Exam General Appearance: well developed/nourished, no apparent distress Head: atraumatic, normal appearance Eyes: Bilateral: normal appearance, PERRL, EOMI. Ears, Nose, Throat: normal pharynx, normal ENT inspection Neck: normal inspection, supple, full range of motion Respiratory: normal breath sounds, chest non-tender, no respiratory distress, quiet respiration, lungs clear Cardiovascular: regular rate/rhythm Gastrointestinal: normal bowel sounds, soft, non-tender, no organomegaly Back: normal inspection, normal range of motion Extremities: normal range of motion Neurologic/Psych: no motor/sensory deficits, awake, alert, oriented x 3 Skin: intact, normal color, warm/dry Core Measures ACS in differential dx? No CVA/TIA Diagnosis: No Severe Sepsis Present: No Septic Shock Present: No Progress Differential Diagnosis: elevated cpk vs myalgia vs muscle strain vs dehydration vs other. Plan of Care: Orders Procedure Date/time Status EKG 03/26 55 Active COMPREHENSIVE METABOLIC PANEL 03/26 19 Complete CREATINE PHOSPHOKINASE 03/26 19 Complete CBC WITHOUT DIFFERENTIAL 03/26 19 Complete Laboratory Tests 03/26/17 0111: Anion Gap 15, Estimated GFR > 60, BUN/Creatinine Ratio 16.4, Glucose 85, Calcium 10.2, Total Bilirubin 0.8, AST 28, ALT 32, Alkaline Phosphatase 88, Creatine Kinase 255 H, Total Protein 8.5 H, Albumin 5.1 H, Globulin 3.4, Albumin/ Globulin Ratio 1.5, CBC w Diff NO MAN DIFF REQ, RBC 5.64, MCV 84.6, MCH 28.9, RDW 14.1, MPV 8.4, Gran % 68.3, Lymphocytes % 21.5, Monocytes % 8.2, Eosinophils % 1.6, Basophils % 0.4, Absolute Granulocytes 6.2, Absolute Lymphocytes 1.9, Absolute Monocytes 0.7 H, Absolute Eosinophils 0.1, Absolute Basophils 0, PUBS MCHC 34.1 Initial ED EKG: normal axis, normal intervals, normal p-waves, normal QRS complex, normal sinus rhythm, early repol pattern Departure Departure Disposition: HOME OR SELF CARE Condition: Stable Clinical Impression Primary Impression: Myalgia Referrals: TUAN LOVE,VANESSA Kerr (PCP/Family) Departure Forms: Customer Survey General Discharge Information
[2017-03-26 01:18] LABS: ABSOLUTE BASOPHIL COUNT 0 /CUMM (0.0-0.2); ABSOLUTE EOSINOPHIL COUNT 0.1 /CUMM (0.0-0.7); ABSOLUTE GRANULOCYTE CT 6.2 /CUMM (1.4-6.5); ABSOLUTE LYMPH COUNT 1.9 /CUMM (1.2-3.4); ABSOLUTE MONOCYTE COUNT 0.7 /CUMM (0.10-0.60); BASOPHIL % 0.4 % (0.0-2.0); EOSINOPHIL % 1.6 % (0-5); GRANULOCYTE % 68.3 % (42.2-75.2); HEMATOCRIT 47.7 % (42-52); MEAN CORPUSCULAR HGB 28.9 PG (27.0-31.0); MEAN CORPUSCULAR HGB CONC 34.1 G/DL (33.0-37.0); MEAN CORPUSCULAR VOLUME 84.6 FL (80.0-94.0); MEAN PLATELET VOLUME 8.4 FL (7.4-10.4); PLATELET COUNT 263 /CUMM (130-400); RBC DISTRIBUTION WIDTH 14.1 % (11.5-14.5); RED BLOOD CELL CT 5.64 /CUMM (4.70-6.10)
[2017-03-26 01:30] VITALS: BP 135/90
== END 2017-03-26 02:10 ==
LOC: ERH 23:51
PROVIDERS: Pediatrics
DX: M79.1 Myalgia (principal)
CPT/HCPCS: 93005; 93010

== ENCOUNTER 2017-03-29 05:11 | Emergency (ER) | payer OTHER ==
[~2017-03-29] VITALS: Ht 170.2 cm; Wt 61.2 kg
--- NOTE | 2017-03-29 05:45 | ED GENERAL ADULT ---
History of Present Illness General Chief Complaint: Low Back Pain/Injury Stated Complaint: BACK PAIN,BEE Source: patient, old records Exam Limitations: no limitations Vital Signs & Intake/Output Vital Signs & Intake/Output Vital Signs Date Time Temp Pulse Resp B/P B/P Pulse O2 O2 Flow FiO2 Mean Ox Delivery Rate 03/29 0520 Room Air 03/29 0520 96.4 93 16 150/95 98 Room Air Allergies Coded Allergies: NO KNOWN ALLERGIES (11/16/16) Reconcile Medications Alprazolam (Xanax) 0.25 MG TABLET 1 TAB PO BIDP PRN anxiety Escitalopram Oxalate (Lexapro) 10 MG TABLET 1 TAB PO DAILY ANXIETY Ondansetron (Zofran Odt) 4 MG TAB.RAPDIS 1 TAB SL TID PRN nausea Triage Note: PT TO TRIAGE FROM HOME STATES "I WOKE UP THIS MORNING AND MY LEGS AND ARMS FELT REALLY HEAVY." Triage Nurses Notes Reviewed? yes HPI: Patient presents for evaluation of "not feeling well". Patient states that he ran a marathon 4 days ago and was evaluated that same day. There was a question of whether or not his muscle enzymes were elevated at that point. He states today he feels that everything is heavy and he is feeling really scared. Although he has a history of anxiety he is not taking any medications currently, he is being treated with counseling. He states he has chest pain and shortness of breath due to anxiety. He denies fever or cold symptoms. He denies rashes or dysuria but states that his urine has been dark over the past 2 days. Past History Travel History Traveled to [place] past 21 day No Medical History Any Pertinent Medical History? 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 No Review of Systems Review of Systems Constitutional: Reports: see HPI. EENTM: Reports: no symptoms. Respiratory: Reports: no symptoms. Cardiovascular: Reports: no symptoms. GI: Reports: no symptoms. Genitourinary: Reports: see HPI. Musculoskeletal: Reports: no symptoms. Skin: Reports: no symptoms. Neurological/Psychological: Reports: no symptoms. Hematologic/Endocrine: Reports: no symptoms. Immunologic/Allergic: Reports: no symptoms. All Other Systems: Reviewed and Negative Physical Exam Physical Exam General Appearance: see below Comments: Gen.: Well-nourished, well-developed, no acute respiratory distress. Head: Normocephalic, atraumatic. Eyes: Normal inspection bilaterally Ears: Normal inspection bilaterally Nose: Normal inspection Throat/mouth : Moist mucosa Neck: Supple, full range of motion, no goiter Heart: Regular rate and rhythm, no murmurs rubs or gallops Lungs: Clear to auscultation bilaterally with normal air entry Chest: Nontender Back: Normal range of motion Abdomen: Soft, nontender, nondistended, normal bowel sounds Extremities: Normal range of motion grossly, equal radial pulses, no cyanosis clubbing or edema Neurologic: Cranial nerves grossly intact, speech is clear Skin: warm and dry Psychiatric: Calm, cooperative, no apparent delusions or hallucinations Core Measures ACS in differential dx? No CVA/TIA Diagnosis: No Severe Sepsis Present: No Septic Shock Present: No Progress Differential Diagnoses I considered the following diagnoses in my evaluation of the patient: Rhabdomyolysis, anxiety Plan of Care: Orders Procedure Date/time Status URINALYSIS 03/29 545 Complete CREATINE PHOSPHOKINASE 03/29 545 Active BASIC METABOLIC PANEL 03/29 0545 Active Laboratory Tests 03/29/17 0603: Urine Color YEL, Urine Clarity CLEAR, Urine pH 6.0, Ur Specific [place] >= 1.030 , Urine Protein NEG, Urine Ketones NEG, Urine Nitrite NEG, Urine Bilirubin NEG, Urine Urobilinogen 0.2, Ur Leukocyte Esterase NEG, Ur Microscopic EXAM NOT REQUIRED, Urine Hemoglobin NEG, Urine Glucose NEG 03/29/17 0554: Sodium Pending, Potassium Pending, Chloride Pending, Carbon Dioxide Pending, Anion Gap Pending, BUN Pending, Creatinine Pending, BUN/Creatinine Ratio Pending , Glucose Pending, Calcium Pending, Creatine Kinase Pending Initial ED EKG: none Comments: 03/29/2017 6:18:26 AM patient's urinalysis is normal. I suspect that the blood work will also be normal. Tyrel wishes to go home even though the blood work is not resulted. I have notified him that he will be contacted if his lab tests require any further treatment or testing. Departure Departure Disposition: HOME OR SELF CARE Condition: Stable Clinical Impression Primary Impression: Anxiety Referrals: TUAN LOVE,VANESSA Kerr (PCP/Family) Additional Instructions: We will contact you if you remaining blood tests require any further testing or treatment. Follow-up with your primary care doctor this week for reevaluation. Avoid any further exertion and rehydrate well. Return immediately if any concerns or sudden worsening. Thank you for choosing the Emergency Department for your care. It was a pleasure to serve you today. John Eller M.D. [facility] Departure Forms: Customer Survey General Discharge Information Critical Care Note Critical Care Note Critical Care Time: non-applicable
[2017-03-29 06:22] VITALS: BP 128/76
== END 2017-03-29 06:31 ==
LOC: ERH 05:11
DX: F41.9 Anxiety disorder, unspecified (principal); R07.9 Chest pain, unspecified
CPT/HCPCS: 81003

== ENCOUNTER 2017-03-30 05:54 | Emergency (ER) | payer OTHER ==
[~2017-03-30] VITALS: Ht 170.2 cm; Wt 61.2 kg
[2017-03-30 06:09] VITALS: BP 146/79
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
== END 2017-03-30 06:53 ==
LOC: ERH 05:54
DX: R10.12 Left upper quadrant pain (principal); R11.10 Vomiting, unspecified
CPT/HCPCS: J3101

== ENCOUNTER 2017-04-03 07:17 | Emergency (ER) | payer OTHER ==
[~2017-04-03] VITALS: Ht 170.2 cm; Wt 61.2 kg
[2017-04-03 07:22] VITALS: BP 122/76
[2017-04-03] MEDS ORDERED: ZOFRAN ODT4 M1 SL (09:04)
[2017-04-03] MEDS ORDERED: LEVSIN0.125 M1 PO (09:04)
--- NOTE | 2017-04-03 09:05 | ED GI/GU/ABDOMINAL COMPLAINT ---
History of Present Illness General Chief Complaint: Nausea, Vomiting, Diarrhea Stated Complaint: +NV, SEEN HERE YESTERDAY FOR SAME Source: patient, old records Exam Limitations: no limitations Vital Signs & Intake/Output Vital Signs & Intake/Output Vital Signs Date Time Temp Pulse Resp B/P B/P Pulse O2 O2 Flow FiO2 Mean Ox Delivery Rate 04/03 0722 98.9 64 18 122/76 98 Room Air Room Air Allergies Coded Allergies: NO KNOWN ALLERGIES (11/16/16) Reconcile Medications Alprazolam (Xanax) 0.25 MG TABLET 1 TAB PO BIDP PRN anxiety Escitalopram Oxalate (Lexapro) 10 MG TABLET 1 TAB PO DAILY ANXIETY Hyoscyamine (Levsin) 0.125 MG TABLET 1-2 TAB PO Q6P PRN ABDOMINAL CRAMPS Ondansetron (Zofran Odt) 4 MG TAB.RAPDIS 1 TAB SL Q6P PRN NAUSEA/VOMITING Ondansetron (Zofran Odt) 4 MG TAB.RAPDIS 1 TAB SL TID PRN nausea Triage Note: TRIAGE: 21 Y/O MALE PRESENTS C/O +NAUSEA/ +VOMITING - "SAME SYMPTOMS 2-3 DAYS AGO." PATIENT AGREEABLE TO CEASE CONSUMPTION OF FOOD/ BEVERAGES AT THIS TIME. Triage Nurses Notes Reviewed? yes HPI: Patient presents for evaluation of sudden onset of nausea vomiting and cramping abdominal pain that began this morning. Patient states he was well at bedtime. Since then he has had a left-sided cramping abdominal pain, moderate in intensity, that has now resolved. He states he tried to have some Gatorade this morning but vomited. He denies any associated fever or cold symptoms or diarrhea. He has had these symptoms in the past, the etiology of which has been unclear. Past History Travel History Traveled to [place] past 21 day No Medical History Any Pertinent Medical History? 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 No Review of Systems Review of Systems Constitutional: Reports: no symptoms. EENTM: Reports: no symptoms. Respiratory: Reports: no symptoms. Cardiovascular: Reports: no symptoms. GI: Reports: see HPI. Genitourinary: Reports: no symptoms. Musculoskeletal: Reports: no symptoms. Skin: Reports: no symptoms. Neurological/Psychological: Reports: no symptoms. Hematologic/Endocrine: Reports: no symptoms. Immunologic/Allergic: Reports: no symptoms. All Other Systems: Reviewed and Negative Physical Exam Physical Exam Gastrointestinal: see below Comments: Gen.: Well-nourished, well-developed, no acute respiratory distress. Head: Normocephalic, atraumatic. Eyes: Normal inspection bilaterally Ears: Normal inspection bilaterally Nose: Normal inspection Throat/mouth : Moist mucosa Neck: Supple, full range of motion, no goiter Lungs: Quiet respirations Back: Normal range of motion Abdomen: Soft nontender nondistended normal bowel sounds Extremities: Normal range of motion grossly, no cyanosis clubbing or edema of the upper extremities Neurologic: Cranial nerves grossly intact, speech is clear Skin: warm and dry Psychiatric: Calm, cooperative, no apparent delusions or hallucinations Core Measures ACS in differential dx? No Severe Sepsis Present: No Septic Shock Present: No Progress Differential Diagnosis: anxiety Plan of Care: Sedative Initial ED EKG: none Comments: With review of old records, Tyrel had blood work and urinalysis done earlier this month. I do not feel these need to be redone based on his history and physical examination. Plan symptomatic treatment. Departure Departure Disposition: HOME OR SELF CARE Condition: Stable Clinical Impression Primary Impression: Vomiting Referrals: TUAN LOVE,VANESSA Kerr (PCP/Family) Additional Instructions: Clear liquid diet and advance as tolerated. Zofran as needed for nausea or vomiting. Levsin as needed for abdominal pain. 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 Return if any concerns or sudden worsening. Thank you for choosing the [facility] Emergency Department for your care. It was a pleasure to serve you today. John Eller M.D. [facility] Departure Forms: Customer Survey General Discharge Information Prescriptions: Current Visit Scripts Hyoscyamine (Levsin) 1-2 TAB PO Q6P PRN ABDOMINAL CRAMPS #20 TAB Ondansetron (Zofran Odt) 1 TAB SL Q6P PRN NAUSEA/VOMITING #10 TAB
== END 2017-04-03 10:05 ==
LOC: ERH 07:17
DX: R11.2 Nausea with vomiting, unspecified (principal)

== ENCOUNTER 2017-04-05 14:26 | Emergency (ER) | payer OTHER ==
[~2017-04-05] VITALS: Ht 170.2 cm; Wt 61.2 kg
[~2017-04-05 14:26] MED LIST changes: +LEVSIN0.125 M1 PO
[2017-04-05 14:37] VITALS: BP 130/86
--- NOTE | 2017-04-05 15:38 | ED AMS/SEIZURE/WEAK/DIZZY ---
History of Present Illness General Chief Complaint: General Adult Stated Complaint: NASEOUS, DIZZY Source: patient, old records Exam Limitations: no limitations Vital Signs & Intake/Output Vital Signs & Intake/Output Vital Signs Date Time Temp Pulse Resp B/P B/P Pulse O2 O2 Flow FiO2 Mean Ox Delivery Rate 04/05 1437 97.8 74 18 130/86 97 Room Air Allergies Coded Allergies: NO KNOWN ALLERGIES (11/16/16) Reconcile Medications Alprazolam (Xanax) 0.25 MG TABLET 1 TAB PO BIDP PRN anxiety Escitalopram Oxalate (Lexapro) 10 MG TABLET 1 TAB PO DAILY ANXIETY Hyoscyamine (Levsin) 0.125 MG TABLET 1-2 TAB PO Q6P PRN ABDOMINAL CRAMPS Ondansetron (Zofran Odt) 4 MG TAB.RAPDIS 1 TAB SL Q6P PRN NAUSEA/VOMITING Ondansetron (Zofran Odt) 4 MG TAB.RAPDIS 1 TAB SL TID PRN nausea Triage Note: 21 Y/O MALE C/O CONTINUED NAUSEA AND DIZZINESS; HAS BEEN EVALUATED IN ED MULTIPLE TIMES RECENTLY FOR SAME S/S. PT STATES HE ALSO F/U WITH [facility] YESTERDAY - "I HAVE A LOT OF TESTS COMING UP THROUGH [facility] SCH[facility]". PT PRESCRIBED ZOFRAN 2 DAYS AGO - STATES HE HAS NOT TRIED TAKING MEDICATION AT HOME. TEXTING IN TRIAGE NO NO SIGNS DISTRESS NOTED. AFEBRILE. Triage Nurses Notes Reviewed? yes Onset: Abrupt Duration: week(s):, constant, continues in ED Timing: recent history Injury Environment: home No Modifying Factors: none HPI: 21-year-old male comes into emergency room reporting dizziness and nausea. Patient reports his been going on for over a year. Patient has been seen here many times in the past for same as well as seen his field spec. No pain currently. Patient comes in for further evaluation. Patient saw his granulating machine operator a couple weeks ago. He reports that he is usually there once every week or 2. Denies any other associated symptoms. (RUBEN GLASS,MELODY) Past History Travel History Traveled to [place] past 21 day No Medical History Any Pertinent Medical History? 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 No (MELODY FERRO) Review of Systems Review of Systems Constitutional: Reports: no symptoms. EENTM: Reports: no symptoms. Respiratory: Reports: no symptoms. Cardiovascular: Reports: see HPI. GI: Reports: see HPI. Genitourinary: Reports: no symptoms. Musculoskeletal: Reports: no symptoms. Skin: Reports: no symptoms. Neurological/Psychological: Reports: no symptoms. Hematologic/Endocrine: Reports: no symptoms. Immunologic/Allergic: Reports: no symptoms. All Other Systems: Reviewed and Negative (MELODY FERRO) Physical Exam Physical Exam General Appearance: well developed/nourished, alert, awake Head: atraumatic Eyes: Bilateral: normal appearance, EOMI. Ears, Nose, Throat: normal pharynx, normal ENT inspection Neck: normal inspection Respiratory: normal breath sounds, no respiratory distress Cardiovascular: regular rate/rhythm Back: normal inspection Extremities: normal range of motion Neurologic/Psych: awake, alert, oriented x 3, normal gait, normal mood/affect Skin: intact, normal color Core Measures ACS in differential dx? No CVA/TIA Diagnosis: No Severe Sepsis Present: No Septic Shock Present: No (MELODY FERRO) Progress Differential Diagnosis: arrythmia, alcohol intoxication, anemia, benign positional vertigo, CVA/stroke, dehydration, drug intoxication, encephalitis, electrolyte imbalance, hypoglycemia, intracranial mass/tumor, labrynthitis, postural hypotension, presyncope, sepsis, seizure disorder, subarachnoid Hem., UTI/pyelo, vertebrobasilar insuff Plan of Care: Orders Procedure Date/time Status Add-on Test (ER Only) 04/05 1555 Active TROPONIN LEVEL 04/05 1545 Complete COMPREHENSIVE METABOLIC PANEL 04/05 1533 Complete CBC WITHOUT DIFFERENTIAL 04/05 1533 Complete EKG 04/05 1533 Active Laboratory Tests 04/05/17 1545: Anion Gap 9, Estimated GFR > 60, BUN/Creatinine Ratio 21.8, Glucose 83, Calcium 9.8, Total Bilirubin 0.5, AST 20, ALT 34, Alkaline Phosphatase 65, Troponin I < 0.01, Total Protein 6.9, Albumin 4.4, Globulin 2.5, Albumin/Globulin Ratio 1.8, CBC w Diff NO MAN DIFF REQ, RBC 5.03, MCV 86.4, MCH 28.5, RDW 14.4, MPV 8.3, Gran % 56.4, Lymphocytes % 29.8, Monocytes % 10.5 H, Eosinophils % 2.7, Basophils % 0.6, Absolute Granulocytes 4.2, Absolute Lymphocytes 2.2, Absolute Monocytes 0.8 H, Absolute Eosinophils 0.2, Absolute Basophils 0, PUBS MCHC 33.0 Initial ED EKG: normal intervals, normal p-waves, normal sinus rhythm, rate (60) Comments: 04/05/2017 5:43:42 PM Patient clinically looks well. Patient is in no apparent distress. Patient has been seen here many times for similar symptoms in the past. Denies any other associated symptoms. Patient has been on a cell phone here in the emergency room. He does not appear to be toxic appearing. EKG within normal limits. Patient has a stress test scheduled for the of this month. Patient recently ran a half marathon 13 miles with no symptoms. (RUBEN GLASS,MELODY) Departure Departure Disposition: HOME OR SELF CARE Condition: Stable Clinical Impression Primary Impression: Dizziness Referrals: TUAN LOVE,VANESSA Kerr (PCP/Family) Additional Instructions: Follow-up with your primary care doctor. Return if any concerns worsening symptoms. Please go over all results of today's visit with your primary care doctor. Contact your primary care doctor to let them know you were here in the emergency room. There may be nonspecific findings which may not be related to your visit today here in the emergency room but may require further evaluation and chronic monitoring by your primary care doctor. If you had a laceration today the chance of foreign body always remains. You should follow-up with your primary care doctor for recheck in 3-5 days for a wound check. If you had an x-ray done there is a chance that a fracture could have been missed on initial read and you should follow-up with your primary care doctor for repeat x-rays if symptoms persist. If your blood pressure was elevated here in the emergency room please have rechecked by her primary care doctor within the next 48 hours by your primary care doctor. If you were prescribed a narcotic here in the emergency room or any type of controlled substances you're not allowed to drive while taking this medication or operate any type of heavy machinery. Narcotics can make you feel lightheaded dizziness nausea and can cause constipation. You may need to mushroom picker a stool softener. Thank you for choosing [facility] emergency room. Please return to the emergency room immediately if you have any other concerns worsening of symptoms. Departure Forms: Customer Survey General Discharge Information (MELODY FERRO) PA/PROGRAMMER DEVELOPER Co-Sign Statement Statement: ED Attending supervision documentation- [] I saw and evaluated the patient. I have also reviewed all the pertinent lab results and diagnostic results. I agree with the findings and the plan of care as documented in the PA's/PROGRAMMER DEVELOPER's documentation. [X] I have reviewed the ED Record and agree with the PA's/PROGRAMMER DEVELOPER's documentation. [] Additions or exceptions (if any) to the PAs/PROGRAMMER DEVELOPER's note and plan are summarized below: [] (NARGIS LOVE,ELAYNE)
[2017-04-05 15:54] LABS: ABSOLUTE BASOPHIL COUNT 0 /CUMM (0.0-0.2); ABSOLUTE EOSINOPHIL COUNT 0.2 /CUMM (0.0-0.7); ABSOLUTE GRANULOCYTE CT 4.2 /CUMM (1.4-6.5); ABSOLUTE LYMPH COUNT 2.2 /CUMM (1.2-3.4); ABSOLUTE MONOCYTE COUNT 0.8 /CUMM (0.10-0.60); BASOPHIL % 0.6 % (0.0-2.0); EOSINOPHIL % 2.7 % (0-5); GRANULOCYTE % 56.4 % (42.2-75.2); HEMATOCRIT 43.4 % (42-52); MEAN CORPUSCULAR HGB 28.5 PG (27.0-31.0); MEAN CORPUSCULAR VOLUME 86.4 FL (80.0-94.0); MEAN PLATELET VOLUME 8.3 FL (7.4-10.4); PLATELET COUNT 231 /CUMM (130-400); RBC DISTRIBUTION WIDTH 14.4 % (11.5-14.5); RED BLOOD CELL CT 5.03 /CUMM (4.70-6.10); WHITE BLOOD CELL COUNT 7.4 /CUMM (4.8-10.8)
== END 2017-04-05 17:33 ==
LOC: ERH 14:26
PROVIDERS: Physician Assistant Medical
DX: R42 Dizziness and giddiness (principal)
CPT/HCPCS: 93005; 93010; J3101

== ENCOUNTER 2017-04-10 23:55 | Emergency (ER) | payer OTHER ==
[~2017-04-10] VITALS: Ht 170.2 cm; Wt 61.2 kg
--- NOTE | 2017-04-10 23:59 | ED AMS/SEIZURE/WEAK/DIZZY ---
History of Present Illness General Chief Complaint: Nausea, Vomiting, Diarrhea Stated Complaint: NAUSEA,DIZZINESS Source: patient, old records Exam Limitations: no limitations Vital Signs & Intake/Output Vital Signs & Intake/Output Vital Signs Date Time Temp Pulse Resp B/P B/P Pulse O2 O2 Flow FiO2 Mean Ox Delivery Rate 04/11 0015 Room Air 04/11 0011 98.0 75 18 137/80 98 Room Air Allergies Coded Allergies: NO KNOWN ALLERGIES (11/16/16) Reconcile Medications Alprazolam (Xanax) 0.25 MG TABLET 1 TAB PO BIDP PRN anxiety Escitalopram Oxalate (Lexapro) 10 MG TABLET 1 TAB PO DAILY ANXIETY Hyoscyamine (Levsin) 0.125 MG TABLET 1-2 TAB PO Q6P PRN ABDOMINAL CRAMPS Meclizine HCl 25 MG TABLET 1 TAB PO TIDPRN DIZZINESS/VERTIGO Ondansetron (Zofran Odt) 4 MG TAB.RAPDIS 1 TAB SL TID NAUSEA Ondansetron (Zofran Odt) 4 MG TAB.RAPDIS 1 TAB SL TID PRN nausea Triage Nurses Notes Reviewed? yes Onset: Gradual Duration: week(s):, waxing and waning Timing: recent history Injury Environment: home Severity: moderate Modifying Factors: Improves With: rest. Worsens With: movement. Associated Symptoms: "I feel dizzy." HPI: 21-year-old gentleman history of anxiety disorder presents with the sensation of dizziness and mild anxiety. He states that he is otherwise well. He notes that he does have mild dizziness when he moves his head back and forth. He has no fever chills suicidality or homicidality or delusions. He has no other concerns. When asked how he was doing tonight, he replies, "I'm feeling fine. He does feel little bit dizzy. My doctor thinks that maybe when I get anxious I feel dizzy." Past History Travel History Traveled to [place] past 21 day No Medical History Any Pertinent Medical History? 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 No Review of Systems Review of Systems Constitutional: Reports: no symptoms. EENTM: Reports: no symptoms. Respiratory: Reports: no symptoms. Cardiovascular: Reports: no symptoms. GI: Reports: no symptoms. Genitourinary: Reports: no symptoms. Musculoskeletal: Reports: no symptoms. Skin: Reports: no symptoms. Neurological/Psychological: Reports: no symptoms. Hematologic/Endocrine: Reports: no symptoms. Immunologic/Allergic: Reports: no symptoms. All Other Systems: Reviewed and Negative Physical Exam Physical Exam General Appearance: well developed/nourished, no apparent distress, comfortable Head: atraumatic, normal appearance Eyes: Bilateral: normal appearance, PERRL, EOMI. Ears, Nose, Throat: normal pharynx, normal ENT inspection Neck: normal inspection, supple, full range of motion Respiratory: normal breath sounds, chest non-tender, no respiratory distress, quiet respiration, lungs clear Cardiovascular: regular rate/rhythm Gastrointestinal: normal bowel sounds, soft, non-tender, no organomegaly Back: normal inspection Extremities: normal range of motion Neurologic/Psych: no motor/sensory deficits, awake, alert, oriented x 3 Skin: intact, normal color, warm/dry Core Measures ACS in differential dx? No CVA/TIA Diagnosis: No Severe Sepsis Present: No Septic Shock Present: No Progress Differential Diagnosis: anxiety versus vertigo versus other Plan of Care: Discussed x-ray great length. Patient is very mild symptoms. I'll give trial of Zofran and meclizine and encourage close follow-up with his primary care doctor. Initial ED EKG: none Departure Departure Disposition: HOME OR SELF CARE Condition: Stable Clinical Impression Primary Impression: Dizziness Secondary Impressions: Anxiety, Vertigo Referrals: TUAN LOVE,VANESSA Kerr (PCP/Family) Departure Forms: Customer Survey General Discharge Information Prescriptions: Current Visit Scripts Meclizine HCl 1 TAB PO TIDPRN #4 TAB Ondansetron (Zofran Odt) 1 TAB SL TID #4 TAB
[2017-04-11 00:11] VITALS: BP 137/80
[2017-04-11] MEDS ORDERED: ZOFRAN ODT4 M1 SL (01:23)
[2017-04-11] MEDS ORDERED: MECLIZINE HCL25 MG PO (01:23)
== END 2017-04-11 01:30 ==
LOC: ERH 23:55
DX: F41.9 Anxiety disorder, unspecified (principal); R42 Dizziness and giddiness

== ENCOUNTER 2017-04-12 16:16 | Emergency (ER) | payer OTHER ==
[~2017-04-12] VITALS: Ht 170.2 cm; Wt 61.2 kg
[~2017-04-12 16:16] MED LIST changes: +MECLIZINE HCL25 MG PO
[2017-04-12 16:21] VITALS: BP 134/88
== END 2017-04-12 16:42 | disposition admitted as inpatient to this hospital (09) ==
LOC: ERH 16:16
DX: G43.909 Migraine, unspecified, not intractable, without status migrainosus (principal)

== ENCOUNTER 2017-04-14 22:01 | Emergency (ER) | payer OTHER ==
[~2017-04-14] VITALS: Ht 170.2 cm; Wt 61.2 kg
--- NOTE | 2017-04-14 22:47 | ED HEADACHE COMPLAINT ---
History of Present Illness General Chief Complaint: Headache Stated Complaint: NAUSEA, MIGRAINE HEADACHE Source: patient, old records Exam Limitations: no limitations Vital Signs & Intake/Output Vital Signs & Intake/Output Vital Signs Date Time Temp Pulse Resp B/P B/P Pulse O2 O2 Flow FiO2 Mean Ox Delivery Rate 04/14 2206 97.6 83 18 127/70 97 Room Air ED Intake and Output 04/15 0000 04/14 1200 Intake Total Output Total Balance Patient 135 lb Weight Weight Reported by Patient Measurement Method Allergies Coded Allergies: NO KNOWN ALLERGIES (11/16/16) Reconcile Medications Alprazolam (Xanax) 0.25 MG TABLET 1 TAB PO BIDP PRN anxiety Escitalopram Oxalate (Lexapro) 10 MG TABLET 1 TAB PO DAILY ANXIETY Hyoscyamine (Levsin) 0.125 MG TABLET 1-2 TAB PO Q6P PRN ABDOMINAL CRAMPS Meclizine HCl 25 MG TABLET 1 TAB PO TIDPRN DIZZINESS/VERTIGO Ondansetron (Zofran Odt) 4 MG TAB.RAPDIS 1 TAB SL TID NAUSEA Ondansetron (Zofran Odt) 4 MG TAB.RAPDIS 1 TAB SL TID PRN nausea Triage Note: PT TO TRIAGE WITH NAUSEA, DIZZINESS, HEADACHE 2/10 x3DAYS. PT DENIES CP,SOB,ABD PAIN. VSS. HX OF ANXIETY,PANIC ATTACKS. Triage Nurses Notes Reviewed? yes Onset: 3 days Duration: day(s):, constant, continues in ED Timing: recent history Quality/Severity: mild, constant, pressure Head Injury Location: global No Modifying Factors: none Associated Symptoms: weakness, dizziness, nausea HPI: 3 days prior to admission patient complains of recurrent headache weakness dizziness nausea. Symptoms not relieved with Excedrin. Denies fever chills vomiting diarrhea chest pain cough shortness of breath dysuria rash bleeding. Past History Travel History Traveled to [place] past 21 day No Medical History Any Pertinent Medical History? 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 No Review of Systems Review of Systems Constitutional: Reports: no symptoms. Eyes: Reports: no symptoms. Ears, Nose, Throat, Mouth: Reports: no symptoms. Respiratory: Reports: no symptoms. Cardiovascular: Reports: no symptoms. Gastrointestinal/Abdominal: Reports: see HPI, nausea. Genitourinary: Reports: no symptoms. Musculoskeletal: Reports: no symptoms. Skin: Reports: no symptoms. Neurological/Psychological: Reports: see HPI, anxiety, headache. Hematologic/Endocrine: Reports: no symptoms. Endocrine: Reports: no symptoms. Immunologic/Allergic: Reports: no symptoms. All Other Systems: Reviewed and Negative Physical Exam Physical Exam General Appearance: well developed/nourished, alert, awake, anxious, mild distress, thin Head: atraumatic, normal appearance Eyes: Bilateral: normal appearance, PERRL, EOMI. Ears, Nose, Throat: normal pharynx, normal ENT inspection, hearing grossly normal Neck: normal inspection, supple, full range of motion, trachea midline, no midline tenderness Respiratory: normal breath sounds, chest non-tender, no respiratory distress, quiet respiration, lungs clear Cardiovascular: regular rate/rhythm, normal peripheral pulses, norml femoral pulses equa Gastrointestinal: normal bowel sounds, soft, non-tender, no organomegaly Back: normal inspection, normal range of motion, no vertebral tenderness Extremities: normal inspection, normal capillary refill, normal range of motion, no edema Psychiatric: awake, alert, oriented x 3 Cranial Nerves: normal hearing, normal speech, PERRL Coordination/Gait: normal finger to nose, normal gait Motor/Sensory: no motor/sensory deficits Reflexes: 2+: bicep (R), bicep (L). Skin: intact, normal color, warm/dry Lymphatic: no anterior cervical papi Core Measures Severe Sepsis Present: No Septic Shock Present: No Progress Differential Diagnosis: cluster BEE, tension BEE Plan of Care: Current Medications Sig/Kirill Start time Last Medication Dose Stop Time Status Admin Ibuprofen 600 MG ONCE ONE 04/14 2245 UNVr (Motrin) 04/14 2246 Scopolamine HBr 1 PAT ONE ONE 04/14 2245 UNVr (Trans Derm Scop) 04/14 2246 Departure Departure Time of Disposition: 39 Disposition: HOME OR SELF CARE Condition: Stable Clinical Impression Primary Impression: Headache syndrome Referrals: TUAN LOVE,VANESSA Kerr (PCP/Family) Departure Forms: Customer Survey General Discharge Information
[2017-04-15 01:04] VITALS: BP 125/81
== END 2017-04-15 01:07 ==
LOC: ERH 22:01
DX: R51 Headache (principal)

== ENCOUNTER 2017-04-19 18:24 | Emergency (ER) | payer OTHER ==
[~2017-04-19] VITALS: Ht 170.2 cm; Wt 61.2 kg
--- NOTE | 2017-04-19 19:31 | ED GENERAL ADULT ---
History of Present Illness General Chief Complaint: General Adult Stated Complaint: NAUSEA,SHAKING Source: patient, old records Exam Limitations: no limitations Vital Signs & Intake/Output Vital Signs & Intake/Output Vital Signs Date Time Temp Pulse Resp B/P B/P Pulse O2 O2 Flow FiO2 Mean Ox Delivery Rate 04/19 2049 99.2 94 17 139/84 99 Room Air 04/19 1841 99.8 95 15 144/91 98 Room Air Room Air ED Intake and Output 04/20 0000 04/19 1200 Intake Total Output Total Balance Patient 135 lb Weight Weight Reported by Patient Measurement Method Allergies Coded Allergies: No Known Allergies (04/19/17) Triage Note: PT TO ED FOR C/C OF SHAKINESS AND NAUSEA X A YEAR. PT VERY ANXIOUS IN TRIAGE. "I THINK I'M HAVING LITTLE SEIZURES OR SOMETHING, BUT I CAN TALK AND STUFF DURING ALL OF IT." Triage Nurses Notes Reviewed? yes Onset: Abrupt Duration: day(s): (1), constant, continues in ED Timing: recent history Injury Environment: home Severity: mild, moderate Severity Numbers: 5 No Modifying Factors: none HPI: 21-year-old male with past medical history of severe anxiety presents complaining of nausea and shakiness for the past day. Patient reports he has had similar symptoms on multiple occasions in the past. He's been seen in the ED here 9 times this past month already for the same thing. His been eating and drinking normally. Nausea will come intermittently and he describes it as severe. There is been no vomiting, pain, back pain, diarrhea, fevers, sweats, chills. Symptoms are also associated with shakiness. Patient reports this is intermittent and goes away completely. He has tried taking multiple medications for this in the past without any improvement. He has not taken anything for nausea today. (EARNEST DUKES,MAREN) Reconcile Medications Alprazolam (Xanax) 0.25 MG TABLET 1 TAB PO BIDP PRN anxiety Escitalopram Oxalate (Lexapro) 10 MG TABLET 1 TAB PO DAILY ANXIETY Hyoscyamine (Levsin) 0.125 MG TABLET 1-2 TAB PO Q6P PRN ABDOMINAL CRAMPS Meclizine HCl 25 MG TABLET 1 TAB PO TIDPRN DIZZINESS/VERTIGO Meclizine HCl 25 MG TABLET 1 TAB PO TIDPRN PRN DIZZINESS Ondansetron (Zofran Odt) 4 MG TAB.RAPDIS 1 TAB SL TID NAUSEA Ondansetron (Zofran Odt) 4 MG TAB.RAPDIS 1 TAB SL TID PRN nausea (NARGIS LOVE,ELAYNE) Past History Travel History Traveled to [place] past 21 day No Medical History Any Pertinent Medical History? 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 No (MAREN TINOCO PA-C) Review of Systems Review of Systems Constitutional: Reports: no symptoms. EENTM: Reports: no symptoms. Respiratory: Reports: no symptoms. Cardiovascular: Reports: no symptoms. GI: Reports: see HPI, nausea. Genitourinary: Reports: no symptoms. Musculoskeletal: Reports: no symptoms. Skin: Reports: no symptoms. Neurological/Psychological: Reports: no symptoms. Hematologic/Endocrine: Reports: no symptoms. Immunologic/Allergic: Reports: no symptoms. All Other Systems: Reviewed and Negative (MAREN TINOCO PA-C) Physical Exam Physical Exam General Appearance: well developed/nourished, no apparent distress, alert, awake , anxious Head: atraumatic, normal appearance Eyes: Bilateral: normal appearance, PERRL, EOMI. Ears, Nose, Throat: normal pharynx, normal ENT inspection, hearing grossly normal Neck: normal inspection, supple, full range of motion Respiratory: normal breath sounds, chest non-tender, no respiratory distress, lungs clear Cardiovascular: regular rate/rhythm, normal peripheral pulses Peripheral Pulses: 2+ radial (R), 2+ radial (L) Gastrointestinal: normal bowel sounds, soft, non-tender, no organomegaly Back: normal inspection, normal range of motion, no vertebral tenderness Extremities: normal inspection, normal capillary refill, normal range of motion, no edema Neurologic/Psych: no motor/sensory deficits, awake, alert, oriented x 3, normal gait, normal mood/affect Reflexes: 2+: knee (R), knee (L). Skin: intact, normal color, warm/dry Lymphatic: no anterior cervical papi Core Measures ACS in differential dx? No CVA/TIA Diagnosis: No Severe Sepsis Present: No Septic Shock Present: No (MAREN TINOCO PA-C) Progress Differential Diagnoses I considered the following diagnoses in my evaluation of the patient: panic attack, generalized anxiety disorder, anxiety the health, gastritis, gastroenteritis ] Plan of Care: Patient is feeling much better after receiving oral fluids and Zofran ODT. He feels he is safe to go home. Patient will be discharged home he has Zofran at home already. Advised him to eat bland foods and increase fluids. Follow up with his primary care doctor and psychiatrist this coming week. Discussed return precautions with patient. He is nontoxic appearing afebrile and agrees with the plan. Initial ED EKG: none (MAREN TINOCO PA-C) Departure Departure Disposition: HOME OR SELF CARE Condition: Stable Clinical Impression Primary Impression: Nausea Referrals: TUAN LOVE,VANESSA Kerr (PCP/Family) Additional Instructions: Take Zofran as needed for nausea. Drink plenty fluids and eat bland foods. Follow-up with her primary care doctor this coming week. Return to the emergency department with any concerns. Departure Forms: Customer Survey General Discharge Information (MAREN TINOCO PA-C) PA/ENGINE OILER Co-Sign Statement Statement: ED Attending supervision documentation- [] I saw and evaluated the patient. I have also reviewed all the pertinent lab results and diagnostic results. I agree with the findings and the plan of care as documented in the PA's/ENGINE OILER's documentation. [X] I have reviewed the ED Record and agree with the PA's/ENGINE OILER's documentation. [] Additions or exceptions (if any) to the PAs/ENGINE OILER's note and plan are summarized below: [] (NARGIS LOVE,ELAYNE) Critical Care Note Critical Care Note Critical Care Time: non-applicable (MAREN TINOCO PA-C)
[2017-04-19 20:49] VITALS: BP 139/84
[2017-04-21] MEDS ORDERED: MECLIZINE HCL25 MG PO (22:48)
== END 2017-04-19 20:50 ==
LOC: ERH 18:24
DX: R11.0 Nausea (principal)

== ENCOUNTER 2017-04-24 01:55 | Emergency (ER) | payer OTHER ==
[~2017-04-24] VITALS: Ht 170.2 cm; Wt 61.2 kg
[2017-04-24 02:32] VITALS: BP 135/91
--- NOTE | 2017-04-24 03:25 | ED AMS/SEIZURE/WEAK/DIZZY ---
History of Present Illness General Chief Complaint: Dizziness Stated Complaint: DIZZY,NAUSEA X 1 DAY Source: patient, old records Exam Limitations: no limitations Vital Signs & Intake/Output Vital Signs & Intake/Output Vital Signs Date Time Temp Pulse Resp B/P B/P Pulse O2 O2 Flow FiO2 Mean Ox Delivery Rate 04/24 0232 72 18 135/91 98 Room Air (JARRETT LOVE,LIGIA) Allergies Coded Allergies: No Known Allergies (04/19/17) Reconcile Medications Alprazolam (Xanax) 0.25 MG TABLET 1 TAB PO BIDP PRN anxiety Escitalopram Oxalate (Lexapro) 10 MG TABLET 1 TAB PO DAILY ANXIETY Hyoscyamine (Levsin) 0.125 MG TABLET 1-2 TAB PO Q6P PRN ABDOMINAL CRAMPS Meclizine HCl 25 MG TABLET 1 TAB PO TIDPRN DIZZINESS/VERTIGO Meclizine HCl 25 MG TABLET 1 TAB PO TIDPRN PRN DIZZINESS Ondansetron (Zofran Odt) 4 MG TAB.RAPDIS 1 TAB SL TID NAUSEA Ondansetron (Zofran Odt) 4 MG TAB.RAPDIS 1 TAB SL TID PRN nausea Triage Note: PT TO ED WITH COMPLAINTS OF NAUSEA AND DIZZINESS THAT STARTED A FEW DAYS AGO. Triage Nurses Notes Reviewed? yes Onset: Just prior to arrival Duration: minute(s):, constant, continues in ED Timing: recent history Severity: moderate No Modifying Factors: none HPI: Prior to admission patient complains of recurrent dizziness and nausea. He is noncompliant with depression and anxiety medications. He denies fever chills nausea vomiting diarrhea abdominal pain chest pain shortness of breath headache dysuria rash bleeding suicidal ideation homicidal ideation hallucination. Past History Travel History Traveled to [place] past 21 day No Medical History Any Pertinent Medical History? 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 No Review of Systems Review of Systems Constitutional: Reports: no symptoms. EENTM: Reports: no symptoms. Respiratory: Reports: no symptoms. Cardiovascular: Reports: no symptoms. GI: Reports: see HPI, nausea. Genitourinary: Reports: no symptoms. Musculoskeletal: Reports: no symptoms. Skin: Reports: no symptoms. Neurological/Psychological: Reports: see HPI, anxiety. Hematologic/Endocrine: Reports: no symptoms. Immunologic/Allergic: Reports: no symptoms. All Other Systems: Reviewed and Negative Physical Exam Physical Exam General Appearance: well developed/nourished, alert, awake, anxious, mild distress, thin Head: atraumatic, normal appearance Eyes: Bilateral: normal appearance, PERRL, EOMI. Ears, Nose, Throat: normal pharynx, normal ENT inspection Neck: normal inspection, supple, full range of motion, no midline tenderness Respiratory: normal breath sounds, chest non-tender, no respiratory distress, quiet respiration, lungs clear Cardiovascular: regular rate/rhythm, normal peripheral pulses, norml femoral pulses equa Peripheral Pulses: 4+ carotid (R), 4+ carotid (L) Gastrointestinal: normal bowel sounds, soft, non-tender, no organomegaly Back: normal inspection, normal range of motion Extremities: normal range of motion, no ligament instability Neurologic/Psych: no motor/sensory deficits, awake, alert, oriented x 3, normal gait, normal mood/affect, plant associate II-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 Skin: intact, normal color, warm/dry Lymphatic: no anterior cervical papi Core Measures ACS in differential dx? No CVA/TIA Diagnosis: No Severe Sepsis Present: No Septic Shock Present: No Progress Differential Diagnosis: dehydration, electrolyte imbalance, hypoglycemia Plan of Care: observation Initial ED EKG: none Departure Departure Disposition: HOME OR SELF CARE Condition: Stable Clinical Impression Primary Impression: MINO (generalized anxiety disorder) Secondary Impressions: Somatization disorder Referrals: TUAN LOVE,VANESSA Kerr (PCP/Family) Departure Forms: Customer Survey General Discharge Information
== END 2017-04-24 03:06 ==
LOC: ERH 01:55
DX: F41.1 Generalized anxiety disorder (principal); F45.0 Somatization disorder

== ENCOUNTER 2017-05-04 20:35 | Emergency (ER) | payer OTHER ==
[~2017-05-04] VITALS: Ht 170.2 cm; Wt 61.2 kg
[2017-05-04 21:20] VITALS: BP 136/76
[2017-05-05] MEDS ORDERED: FIORICET 50-301 EACH PO (18:37)
[2017-05-05] MEDS ORDERED: ZOFRAN ODT4 M1 SL (18:37)
[2017-05-08] MEDS ORDERED: MECLIZINE HCL25 MG PO (21:11)
== END 2017-05-04 22:24 | disposition admitted as inpatient to this hospital (09) ==
LOC: ERH 20:35
DX: R11.2 Nausea with vomiting, unspecified (principal); R19.7 Diarrhea, unspecified

== ENCOUNTER 2017-05-05 15:04 | Emergency (ER) | payer OTHER ==
[2017-05-05 15:18] VITALS: BP 132/80
--- NOTE | 2017-05-05 18:26 | ED HEADACHE COMPLAINT ---
History of Present Illness General Chief Complaint: Headache Stated Complaint: MIGRAINE Source: patient Exam Limitations: no limitations Vital Signs & Intake/Output Vital Signs & Intake/Output Vital Signs Date Time Temp Pulse Resp B/P B/P Pulse O2 O2 Flow FiO2 Mean Ox Delivery Rate 05/05 1518 98.7 79 16 132/80 100 Room Air Allergies Coded Allergies: No Known Allergies (04/19/17) Reconcile Medications Butalb/Acetaminophen/Caffeine (Fioricet 50-300-40 MG Capsule) 50 MG-300 MG-40 MG CAPSULE 1 TAB PO Q6HR PRN HEADACHE Ondansetron (Zofran Odt) 4 MG TAB.RAPDIS 1 TAB SL TID PRN NAUSEA Triage Note: C/O MIGRAINE X3 DAYS, AND MILD UNPRODUCTIVE COUGH. DENIES PHOTOSENSITIVITY. -N/V/D. ON CELL PHONE IN TRIAGE WITHOUT DISTRESS. MEDICATED WITH TYLENOL IN TRIAGE Triage Nurses Notes Reviewed? yes Onset: Gradual Duration: day(s): (3), constant Timing: recent history Quality/Severity: mild, achy Severity Numbers: 3 Head Injury Location: global No Modifying Factors: none Associated Symptoms: deneis HPI: 21-year-old male with history of anxiety seen multiple times in the ER for similar symptoms in the past presents to ER today for evaluation with a 3 day history of nausea vomiting dizziness and generalized headache. He is not taken anything for his symptoms he reports the vomiting however he states his being here he has not had any episodes and is tolerating Gatorade. He denies any abdominal pain diarrhea chest pain fever chills. No recent fall or head trauma Past History Travel History Traveled to [place] past 21 day No Medical History Any Pertinent Medical History? see below for history Neurological: CONCUSSIONS EENT: NONE Cardiovascular: NONE Respiratory: NONE Gastrointestinal: NONE Hepatic: NONE Renal: NONE Musculoskeletal: NONE Psychiatric: anxiety, PANIC ATTACKS Endocrine: NONE Blood Disorders: NONE Cancer(s): NONE RN POSTPARTUM/Reproductive: NONE Surgical History Surgical History: non-contributory Psychosocial History Who do you live with Family What is your primary language Montserratian Tobacco Use: Never used Family History Hx Contributory? No Review of Systems Review of Systems Constitutional: Reports: see HPI. Comments Review of systems: See HPI, All other systems negative. Constitutional, no chills no fever, no malaise HEENT: No visual changes no sore throat no congestion Cardiovascular: No chest pain , no palpitation Skin: no rashes, no change in skin Respiratory: No dyspnea no cough GI: Nnausea vomiting, no diarrhea, no bloating/constipation : No dysuria Muscle skeletal: No joint pain, no joint swelling, no back pain, no neck pain, Neurologic: No numbness no confusion,o headache Psych: No stress Heme/endocrine: No bruising Immunology: No lymphadenopathy Physical Exam Physical Exam General Appearance: well developed/nourished, alert, awake, comfortable Cranial Nerves: normal hearing, normal speech, PERRL Comments: Well-developed well-nourished patient in no apparent distress. HEENT: Atraumatic, extraocular motion intact Neck: Supple, FROM Back: FROM Cardiovascular: Regular rate and rhythms no murmurs rubs or gallops, Respiratory: Chest nontender.There were no bony deformities, no asymmetry. No respiratory distress. Patient speaking in full complete sentences. Breath sounds clear to auscultation bilaterally: NO W/R/R Abdomen: Soft nontender no rebound or guarding Extremities: full range of motion Neuro: awake, alert, and oriented to person, place and time. There were no obvious focal neurologic abnormalities. Skin: Warm & dry;No appreciable rash on exposed skin Psych: Mood affect normal, normal memory normal judgment. Core Measures Severe Sepsis Present: No Septic Shock Present: No Progress Differential Diagnosis: cluster BEE, IC mass/tumor, intracranial Hem., meningitis , musculoskeletal pain, subarach. Hem., dehydration, anxiety Plan of Care: Patient clinically appears well he's been seen numerous times in the past for similar symptoms. Patient has long-standing history of anxiety advise close follow up with his primary care prescription for Zofran, fioricet provided he is tolerating by mouth with Gatorade without vomiting he feels comfortable with this plan Departure Departure Time of Disposition: 1832 Disposition: HOME OR SELF CARE Condition: Stable Clinical Impression Primary Impression: Nausea Secondary Impressions: Headache Referrals: TUAN LOVE,VANESSA Kerr (PCP/Family) Additional Instructions: Zofran for nausea. FIORICET for headaches. [facility] to [facility]. follow up with your pmd. return with any concerns Departure Forms: Customer Survey General Discharge Information Prescriptions: Current Visit Scripts Butalb/Acetaminophen/Caffeine (Fioricet 50-300-40 MG Capsule) 1 TAB PO Q6HR PRN HEADACHE #12 TAB Ondansetron (Zofran Odt) 1 TAB SL TID PRN NAUSEA #10 TAB
[2017-05-05] MEDS ORDERED: ZOFRAN ODT4 M1 SL (18:37)
[2017-05-05] MEDS ORDERED: FIORICET 50-301 EACH PO (18:37)
[2017-05-08] MEDS ORDERED: MECLIZINE HCL25 MG PO (21:11)
== END 2017-05-05 18:46 ==
LOC: ERH 15:04
DX: R11.2 Nausea with vomiting, unspecified (principal); R51 Headache

== ENCOUNTER 2017-05-12 17:52 | Emergency (ER) | payer OTHER ==
[~2017-05-12 17:52] MED LIST changes: +FIORICET 50-301 EACH PO
[2017-05-12 17:59] VITALS: BP 141/92
[2017-05-12] MEDS ORDERED: ATIVAN1 M1 PO (19:21)
--- NOTE | 2017-05-12 19:24 | ED AMS/SEIZURE/WEAK/DIZZY ---
History of Present Illness General Chief Complaint: General Adult Stated Complaint: "MY HEADACHES ARE GETTING WORST" Source: patient, old records Exam Limitations: no limitations Vital Signs & Intake/Output Vital Signs & Intake/Output Vital Signs Date Time Temp Pulse Resp B/P B/P Pulse O2 O2 Flow FiO2 Mean Ox Delivery Rate 05/12 1927 Room Air 05/12 1759 97.4 102 16 141/92 99 Room Air Allergies Coded Allergies: No Known Allergies (04/19/17) Reconcile Medications Butalb/Acetaminophen/Caffeine (Fioricet 50-300-40 MG Capsule) 50 MG-300 MG-40 MG CAPSULE 1 TAB PO Q6HR PRN HEADACHE Lorazepam (Ativan) 1 MG TABLET 1 TAB PO BID PRN anxiety Meclizine HCl 25 MG TABLET 1 TAB PO TIDPRN PRN DIZZY Ondansetron (Zofran Odt) 4 MG TAB.RAPDIS 1 TAB SL TID PRN NAUSEA Triage Note: PT TO ED FOR 9TH VISIT THIS MONTH FOR SAME THING C/O BEE. STATES HE FEELS LIKE THEY ARE GETTING WORSE. Triage Nurses Notes Reviewed? yes Onset: Abrupt Duration: day(s):, constant, continues in ED, getting worse Timing: single episode today Injury Environment: home Severity: mild, moderate Severity Numbers: 6 No Modifying Factors: none Associated Symptoms: dizzy HPI: 21-year-old male with past medical history of anxiety and recurrent headaches presents with dizziness and nausea. Patient has been seen here multiple multiple times for this over the past few months. He reports that his symptoms today are very similar to previous. He has tried taking multiple medications including meclizine and Zofran without any improvement. He denies any pain. Also reports that he feels confused. No abdominal pain, fevers, trauma, chest pain, shortness of breath, diarrhea, or any other associated symptoms. No illicit drug use no HI no SI. (MAREN TINOCO PA-C) Past History Travel History Traveled to [place] past 21 day No Medical History Any Pertinent Medical History? 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 No (MAREN TINOCO PA-C) Review of Systems Review of Systems Constitutional: Reports: no symptoms. EENTM: Reports: no symptoms. Respiratory: Reports: no symptoms. Cardiovascular: Reports: no symptoms. GI: Reports: no symptoms. Genitourinary: Reports: no symptoms. Musculoskeletal: Reports: no symptoms. Skin: Reports: no symptoms. Neurological/Psychological: Reports: see HPI, anxiety, headache, other (dizzy). Hematologic/Endocrine: Reports: no symptoms. Immunologic/Allergic: Reports: no symptoms. All Other Systems: Reviewed and Negative (EARNEST DUKES,MAREN) Physical Exam Physical Exam General Appearance: well developed/nourished, no apparent distress, alert, awake , anxious Comments: General: Hemodynamically stable. Afebrile. Well-developed well-nourished person in no acute distress. Head: Atraumatic, normocephalic Eyes: EOMI bilaterally, PERRLA, conjunctiva are not injected, no discharge, no nystagmus, fundus grossly normal bilaterally Nose: Atraumatic, no rhinorrhea, mucosa is not erythematous, no epistaxis. Sinuses are non-tender Ears: TM pearly nails color bilaterally, external canal is clear, no discharge, hearing is normal Mouth: Appropriate dentition, no gingival bleeding, moist mucus membranes, no oral lesions, tonsils not erythematous or enlarged and free of exudate. Uvula rises midline. Neck: Supple, full active ROM, no lymphadenopathy, no midline tenderness to palpation, no thyromegaly, no tracheal deviation. Back: Non-tender, full active ROM, no scoliosis, no CVA tenderness Cardiovascular: regular rate and rhythm, no murmurs, rubs, or gallops. No JVD Respiratory: Chest is nontender. Regular respiratory rate and effort. No accessory muscle use. Lungs clear to auscultation bilaterally. Abdomen: Soft, non-tender, non-distended, no organomegaly. No rebound tenderness or guarding. Normoactive bowel sounds. Extremities: No edema. No gross deformities. No joint swelling. No calf swelling or tenderness. Full active and passive ROM. Strength 5/5 in upper and lower extremities. Peripheral pulses 2+ bilaterally, Patellar DTR 2+ Neuro: No confusion. Motor and sensory function is intact. Appropriate gait. Cerebellar function intact. Skin: Warm and dry. Appropriate turgor. No lesions or bruising. No appreciable rash on exposed skin. Core Measures ACS in differential dx? No CVA/TIA Diagnosis: No Severe Sepsis Present: No Septic Shock Present: No (MAREN TINOCO PA-C) Progress Differential Diagnosis: arrythmia, anemia, benign positional vertigo, dehydration, drug intoxication, electrolyte imbalance, hypoglycemia, hypoxia, multiple sclerosis, pneumonia, presyncope, post-traumatic vertigo Plan of Care: Patient seen and evaluated. He is neurologically intact. No abnormal exam findings. Patient appears well and is planning on his phone. He is laughing and smiling with his girlfriend. Patient has been seen for this multiple multiple times. He is of multiple head scans including MRIs and CTs. He has multiple lab work is come back within normal limits. He has an appointment with a neurologist in a few months. he'll be treated with Ativan for possible treatment of dizziness and anxiety. Discussed with patient about how this medication works. Reassured patient that he appears well and all of his exams are normal. Reviewed all results of today's visit with patient. Patient is nontoxic-appearing and agrees with the plan. Initial ED EKG: none (MAREN TINOCO PA-C) Departure Departure Disposition: HOME OR SELF CARE Condition: Stable Clinical Impression Primary Impression: Dizzy Referrals: TUAN LOVE,VANESSA Kerr (PCP/Family) Additional Instructions: Take Ativan as directed. This may cause drowsiness. Follow up with her primary care doctor and neurologist as soon as possible. Return to the emergency department with any concerns. Departure Forms: Customer Survey General Discharge Information Prescriptions: Current Visit Scripts Lorazepam (Ativan) 1 TAB PO BID PRN anxiety #10 TAB (MAREN TINOCO PA-C) Resident Co-Sign Statement Statement: ED Attending supervision documentation- [] I saw and evaluated the patient. I have also reviewed all the pertinent lab results and diagnostic results. I agree with the findings and the plan of care as documented in the Resident's documentation. [x] I have reviewed the ED Record and agree with the Resident's documentation. [] Additions or exceptions (if any) to the Resident's note and plan are summarized below: [] (ELVIS LOVE,GABY Gee)
== END 2017-05-12 19:28 ==
LOC: ERH 17:52
DX: R42 Dizziness and giddiness (principal)

== ENCOUNTER 2017-05-14 06:25 | Emergency (ER) | payer OTHER ==
[~2017-05-14] VITALS: Ht 170.2 cm; Wt 61.2 kg
[2017-05-14 06:30] VITALS: BP 137/89
--- NOTE | 2017-05-14 06:42 | ED AMS/SEIZURE/WEAK/DIZZY ---
History of Present Illness General Chief Complaint: Dizziness Stated Complaint: DIZZY AND [place] Source: patient, old records Exam Limitations: no limitations Vital Signs & Intake/Output Vital Signs & Intake/Output Vital Signs Date Time Temp Pulse Resp B/P B/P Pulse O2 O2 Flow FiO2 Mean Ox Delivery Rate 05/14 0641 Room Air 05/14 0630 97.3 20 137/89 98 Room Air Allergies Coded Allergies: No Known Allergies (04/19/17) Reconcile Medications Butalb/Acetaminophen/Caffeine (Fioricet 50-300-40 MG Capsule) 50 MG-300 MG-40 MG CAPSULE 1 TAB PO Q6HR PRN HEADACHE Lorazepam (Ativan) 1 MG TABLET 1 TAB PO BID PRN anxiety Meclizine HCl 25 MG TABLET 1 TAB PO TIDPRN PRN DIZZY Ondansetron (Zofran Odt) 4 MG TAB.RAPDIS 1 TAB SL TID PRN NAUSEA Triage Note: pt to ed for worsening nausea and dizziness. "same as always, tried to wait it out didn't want to come here." denies vomiting. denies diarrhea. denies fevers. awake/alert with easy wob, mmm. able to ambulate from home to ed. Triage Nurses Notes Reviewed? yes HPI: Patient states that he got up this morning and went into his kitchen to make a protein shake and a tendinitis was worsened ever and he started seeing colors that weren't there. Patient states this is never happened before. Patient became very anxious and came into the emergency room. Patient has multiple ED visits for similar complaints over the seeing colors is new. Patient denies any drug use and states that his protein shake his regular protein powder and there are no other agents or creatine in it. Patient denies any chest pain or shortness of breath. Past History Travel History Traveled to [place] past 21 day No Medical History Any Pertinent Medical History? see below for history Neurological: CONCUSSIONS EENT: NONE Cardiovascular: NONE Respiratory: NONE Gastrointestinal: NONE Hepatic: NONE Renal: NONE Musculoskeletal: NONE Psychiatric: anxiety, PANIC ATTACKS Endocrine: NONE Blood Disorders: NONE Cancer(s): NONE ENAMEL SHADER/Reproductive: NONE Surgical History Surgical History: non-contributory Psychosocial History Who do you live with Family What is your primary language Mohawk Tobacco Use: Never used ETOH Use: denies use Illicit Drug Use: marijuana Family History Hx Contributory? No Review of Systems Review of Systems Constitutional: Reports: no symptoms. EENTM: Reports: see HPI, visual changes, hearing changes. Respiratory: Reports: no symptoms. Cardiovascular: Reports: no symptoms. GI: Reports: no symptoms. Genitourinary: Reports: no symptoms. Musculoskeletal: Reports: no symptoms. Skin: Reports: no symptoms. Neurological/Psychological: Reports: see HPI, anxiety. Hematologic/Endocrine: Reports: no symptoms. Immunologic/Allergic: Reports: no symptoms. All Other Systems: Reviewed and Negative Physical Exam Physical Exam General Appearance: well developed/nourished, alert, awake, anxious, mild distress Head: atraumatic, normal appearance Eyes: Bilateral: PERRL, EOMI. Ears, Nose, Throat: normal pharynx, normal ENT inspection, hearing grossly normal Neck: normal inspection, supple, full range of motion Respiratory: normal breath sounds, chest non-tender, no respiratory distress, lungs clear Cardiovascular: regular rate/rhythm, normal peripheral pulses Gastrointestinal: normal bowel sounds, soft, non-tender, no organomegaly Back: normal inspection, normal range of motion Extremities: normal range of motion Neurologic/Psych: no motor/sensory deficits, awake, alert, oriented x 3, normal gait, normal mood/affect Skin: intact, normal color, warm/dry Lymphatic: no anterior cervical papi Core Measures ACS in differential dx? No CVA/TIA Diagnosis: No Severe Sepsis Present: No Septic Shock Present: No Progress Differential Diagnosis: ANXIETY, POSTCONCUSSIVE SYNDROME Plan of Care: Neurology follow-up Initial ED EKG: none Comments: Patient is very concerned that he might be having seizures. Questions have been answered. Departure Departure Disposition: HOME OR SELF CARE Condition: Stable Clinical Impression Primary Impression: Tinnitus Referrals: TUAN LOVE,VANESSA Kerr (PCP/Family) Additional Instructions: At this point you should follow up with the neurology clinic at . Return for any concerns. Departure Forms: Customer Survey General Discharge Information
== END 2017-05-14 07:46 ==
LOC: ERH 06:25
DX: H93.19 Tinnitus, unspecified ear (principal)
CPT/HCPCS: 99282

== ENCOUNTER 2017-12-07 03:01 | Emergency (ER) | payer OTHER ==
[~2017-12-07] VITALS: Ht 167.6 cm; Wt 61.2 kg
[~2017-12-07 03:01] MED LIST changes: +ACYCLOVIR800 M1 PO; +HYDROCORTISO453.6 GM TOP; +MUPIROCIN22 GM TOP; +PERIOGARD473 ML PO; +PROAIR HFA8.5 GM INH; +TESSALON PERLE100 M1 PO; +VALTREX1000 MG PO
[2017-12-07 03:11] VITALS: BP 144/74
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
== END 2017-12-07 04:05 ==
LOC: ERH 03:01
DX: S06.0X9A Concussion with loss of consciousness of unspecified duration, initial encounter (principal); W50.1XXA Accidental kick by another person, initial encounter; Y93.75 Activity, martial arts; Y92.9 Unspecified place or not applicable

== ENCOUNTER 2017-12-11 15:59 | Emergency (ER) | payer OTHER ==
[~2017-12-11] VITALS: Ht 167.6 cm; Wt 61.2 kg
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
[2017-12-11 19:16] VITALS: BP 137/83
[2017-12-11] MEDS ORDERED: ZOFRAN4 M2 PO (19:18)
[2017-12-11] MEDS ORDERED: MOBIC15 M1 PO (19:18)
== END 2017-12-11 19:31 ==
LOC: ERH 15:59
DX: F07.81 Postconcussional syndrome (principal)
CPT/HCPCS: J3101

== ENCOUNTER 2017-12-12 21:01 | Emergency (ER) | payer OTHER ==
[~2017-12-12 21:01] MED LIST changes: +MOBIC15 M1 PO
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
[2017-12-12 21:40] VITALS: BP 130/82
== END 2017-12-12 22:03 ==
LOC: ERH 21:01
DX: S06.0X0A Concussion without loss of consciousness, initial encounter (principal); R07.89 Other chest pain; W50.1XXA Accidental kick by another person, initial encounter; Y93.75 Activity, martial arts; Y92.9 Unspecified place or not applicable
CPT/HCPCS: 93005; 93010

== ENCOUNTER 2018-01-04 07:31 | Emergency (ER) | payer OTHER ==
[~2018-01-04] VITALS: Ht 167.6 cm; Wt 63.5 kg
[~2018-01-04 07:31] MED LIST changes: +CLONIDINE HCL0.1 MG PO
--- NOTE | 2018-01-04 07:56 | ED DYSPNEA/ASTHMA COMPLAINT ---
History of Present Illness General Chief Complaint: Dyspnea (COPD, CHF, Other) Stated Complaint: SOB Source: patient, old records Exam Limitations: no limitations Vital Signs & Intake/Output Vital Signs & Intake/Output Vital Signs Date Time Temp Pulse Resp B/P B/P Pulse O2 O2 Flow FiO2 Mean Ox Delivery Rate 01/04 0903 98.0 89 20 119/67 98 Room Air 01/04 0735 96.6 74 18 148/92 99 Room Air Allergies Coded Allergies: No Known Allergies (09/21/17) Reconcile Medications No Known Home Medications Triage Note: PT STATES HE IS HERE FOR CHEST PAIN AND TROUBLE BREATHING. PT SAW PCP FOR THIS YESTERDAY FOR SAME AND STATES "IT GOT BAD ABOUT 0200". PT IN NO RESP. DISTRESS IN TRIAGE Triage Nurses Notes Reviewed? yes HPI: Patient states that he has been having a runny nose, scratchy throat and a nonproductive cough over the past few days. He saw his primary doctor 2 days ago who diagnosed with a cold. Patient states that he still feels slightly short of breath. He is also getting an intermittent pain in his right lower rib cage when he coughs. When he coughs he has a sharp stabbing pain to that area. There is no radiation. There is no pain when he is not coughing. He denies any dyspnea on exertion or orthopnea. Past History Travel History Traveled to [place] past 21 day No Medical History Any Pertinent Medical History? 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 No Review of Systems Review of Systems Constitutional: Reports: no symptoms. EENTM: Reports: see HPI, nasal congestion. Respiratory: Reports: see HPI, cough. Cardiovascular: Reports: see HPI, chest pain. GI: Reports: no symptoms. Musculoskeletal: Reports: no symptoms. Neurological/Psychological: Reports: no symptoms. Immunologic/Allergic: Reports: no symptoms. Physical Exam Physical Exam General Appearance: well developed/nourished, alert, awake, mild distress Head: atraumatic Eyes: Bilateral: PERRL, EOMI. Respiratory: normal breath sounds, no respiratory distress, lungs clear, TENDER TO PALP Cardiovascular: regular rate/rhythm, normal peripheral pulses Gastrointestinal: normal bowel sounds, soft, non-tender, no organomegaly, NO RUQ PAIN Extremities: normal inspection, normal capillary refill, normal range of motion, no edema Neurologic/Psych: no motor/sensory deficits, awake, alert, oriented x 3, normal mood/affect Lymphatic: no anterior cervical papi Core Measures ACS in differential dx? No CVA/TIA Diagnosis No Sepsis Present: No Sepsis Focused Exam Completed? No All Positive = PERC Ruled Out: Positive: age < 50 years, heart rate < 100 bpm, O2 sat > 94%, no hemoptysis, no hormone use, no prior DVT or PE, no unilateral leg swellin, no surgery/trauma w/ in 4w. Wells Criteria Score: 0 Progress Differential Diagnosis: bronchitis, costochondritis, musculoskeletal pain, pulmonary embolism, pneumonia, pneumothorax Plan of Care: Orders Procedure Date/time Status XRY-CHEST XRAY, TWO VIEWS 01/04 755 Active Diagnostic Imaging: Viewed by Me: Radiology Read. Discussed w/RAD: Radiology Read. CXR Impression: PATIENT: GERMÁN MONTES JR PRESENT AGE: 22 PATIENT ACCOUNT NO: [id number] : 97 LOCATION: [facility] ORDERING PHYSICIAN: Papo Arroyo MD SERVICE DATE: 01/04/18 EXAM TYPE: RAD - XRY-CHEST XRAY, TWO VIEWS EXAMINATION: XR CHEST CLINICAL INFORMATION: Shortness of breath and cough. COMPARISON: 09/08/2017 TECHNIQUE: 2 views of the chest were obtained. FINDINGS: The lungs are well-inflated and clear. Trachea is midline in position. No evidence of interstitial disease, focal consolidation, mass, pneumothorax or pleural effusion. The cardiomediastinal silhouette and pulmonary feliciano have normal size and contour. Bones are normal. The examined upper abdomen is unremarkable. IMPRESSION: No acute pulmonary disease. DICTATED BY: Ry Garrett MD DATE/TIME DICTATED:01/04/18814 CULINARY ASSISTANT: DAVID DATE/TIME TRANSCRIBED:01/04/18814 CONFIDENTIAL, DO NOT COPY WITHOUT APPROPRIATE AUTHORIZATION. <Electronically signed in Other Vendor System> SIGNED BY: Ry Garrett MD 01/04/18 0819 Initial ED EKG: none Departure Departure Disposition: HOME OR SELF CARE Condition: Stable Clinical Impression Primary Impression: Dyspnea Referrals: Kj LOVE,Antonio Kerr (PCP/Family) Additional Instructions: RETURN IF SYMPTOMS WORSEN OR FOR ANY CONCERNS Departure Forms: Customer Survey General Discharge Information Prescriptions: Current Visit Scripts No Known Home Medications Critical Care Note Critical Care Note Critical Care Time: non-applicable
--- NOTE | 2018-01-04 08:19 | RADIOLOGY REPORT ---
EXAMINATION: XR CHEST CLINICAL INFORMATION: Shortness of breath and cough. COMPARISON: 09/08/2017 TECHNIQUE: 2 views of the chest were obtained. FINDINGS: The lungs are well-inflated and clear. Trachea is midline in position. No evidence of interstitial disease, focal consolidation, mass, pneumothorax or pleural effusion. The cardiomediastinal silhouette and pulmonary feliciano have normal size and contour. Bones are normal. The examined upper abdomen is unremarkable. IMPRESSION: No acute pulmonary disease.
[2018-01-04 09:03] VITALS: BP 119/67
[2018-01-06] MEDS ORDERED: ZITHROMAX250 M2 PO (08:45)
[2018-01-06] MEDS ORDERED: IBUPROFEN800 M1 PO (08:45)
[2018-01-06] MEDS ORDERED: PROAIR HFA8.5 GM INH (08:45)
== END 2018-01-04 09:03 ==
LOC: ERH 07:31
DX: R06.00 Dyspnea, unspecified (principal)
CPT/HCPCS: 71046

== ENCOUNTER 2018-01-04 22:43 | Emergency (ER) | payer OTHER ==
[2018-01-04 22:56] VITALS: BP 144/95
--- NOTE | 2018-01-04 23:06 | ED GENERAL ADULT ---
History of Present Illness General Chief Complaint: General Adult Stated Complaint: "SAME THING ALWAYS" PER PT Source: patient Exam Limitations: no limitations Vital Signs & Intake/Output Vital Signs & Intake/Output Vital Signs Date Time Temp Pulse Resp B/P B/P Pulse O2 O2 Flow FiO2 Mean Ox Delivery Rate 01/04 2256 97.0 78 16 144/95 98 Room Air Allergies Coded Allergies: No Known Allergies (09/21/17) Reconcile Medications No Known Home Medications Triage Note: PT RETURNS TO ED WITH INTERMITTENT CHEST PAIN, SOB, ANXIETY. REPORTS CONCUSSION 1 MONTH AGO AND SYMPTOMS HAVE NOT GONE AWAY SINCE THEN. Triage Nurses Notes Reviewed? yes Onset: Abrupt Duration: acute on chronic issue Timing: recent history HPI: 22-year-old male comes into the emergency room for further evaluation of chest pains headaches and intermittent blurry vision. Patient has been seen here many times for similar symptoms in the past. He sustained a concussion about a month ago. He reports that he just has not felt well since then. Denies any vomiting. Comes in for further evaluation. Denies any current pain in his chest. (Caden Amezquita) Past History Travel History Traveled to [place] past 21 day No Medical History Any Pertinent Medical History? 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 No (Caden Amezquita) Review of Systems Review of Systems Constitutional: Reports: no symptoms. EENTM: Reports: see HPI. Respiratory: Reports: no symptoms. Cardiovascular: Reports: see HPI. GI: Reports: no symptoms. Genitourinary: Reports: no symptoms. Musculoskeletal: Reports: no symptoms. Skin: Reports: no symptoms. Neurological/Psychological: Reports: see HPI. Hematologic/Endocrine: Reports: no symptoms. Immunologic/Allergic: Reports: no symptoms. All Other Systems: Reviewed and Negative (Caden Amezquita) Physical Exam Physical Exam General Appearance: well developed/nourished, no apparent distress, alert, awake Head: atraumatic, normal appearance Eyes: Bilateral: normal appearance, PERRL, EOMI. Ears, Nose, Throat: normal ENT inspection, hearing grossly normal Neck: normal inspection Respiratory: normal breath sounds, no respiratory distress Cardiovascular: regular rate/rhythm Gastrointestinal: soft Back: normal inspection Extremities: normal inspection, normal range of motion, no edema Neurologic/Psych: awake, alert, oriented x 3, normal gait Skin: intact, normal color Core Measures ACS in differential dx? No CVA/TIA Diagnosis: No Sepsis Present: No Sepsis Focused Exam Completed? No (Caden Amezquita) Progress Differential Diagnoses I considered the following diagnoses in my evaluation of the patient: mi, pericarditis, anxiety, concussion Plan of Care: Orders Procedure Date/time Status EKG 01/04 2306 Active Initial ED EKG: normal sinus rhythm, rate (68) (Caden Amezquita) Departure Departure Disposition: HOME OR SELF CARE Condition: Stable Clinical Impression Primary Impression: Chest pain Referrals: Kj LOVE,Antonio Kerr (PCP/Family) Additional Instructions: Follow-up with your primary care doctor. Return if any concerns worsening symptoms. Please go over all results of today's visit with your primary care doctor. Contact your primary care doctor to let them know you were here in the emergency room. There may be nonspecific findings which may not be related to your visit today here in the emergency room but may require further evaluation and chronic monitoring by your primary care doctor. If you had a laceration today the chance of foreign body always remains. You should follow-up with your primary care doctor for recheck in 3-5 days for a wound check. If you had an x-ray done there is a chance that a fracture could have been missed on initial read and you should follow-up with your primary care doctor for repeat x-rays if symptoms persist. If your blood pressure was elevated here in the emergency room please have rechecked by [facility] primary care doctor within the next 48. If you were prescribed a narcotic here in the emergency room or any type of controlled substances you're not allowed to drive while taking this medication or operate any type of heavy machinery. Narcotics can make you feel lightheaded dizziness nausea and can cause constipation. You may need to picking machine operator a stool softener. Thank you for choosing [facility] emergency room. Please return to the emergency room immediately if you have any other concerns worsening of symptoms. Departure Forms: Customer Survey General Discharge Information Prescriptions: Current Visit Scripts No Known Home Medications Comments 01/04/2018 11:46:21 PM Patient has a high-level anxiety. Seen here many times for similar symptoms. Clinically stable. No apparent distress. Symptoms consistent with previous symptoms. He's been seen here many times and seen by his PCP. I do not feel blood work or chest x-ray are necessary at this moment. He is in agreement with plan of care. Shared decision making. 10 minutes at bedside discussing plan of care. Patient was provided coping mechanisms to deal with anxiety. (Caden Amezquita) PA/CRUSHER DRY GROUND MICA Co-Sign Statement Statement: ED Attending supervision documentation- I saw and evaluated the patient. I have also reviewed all the pertinent lab results and diagnostic results. I agree with the findings and the plan of care as documented in the PA's/CRUSHER DRY GROUND MICA's documentation. x I have reviewed the ED Record and agree with the PA's/CRUSHER DRY GROUND MICA's documentation. [] Additions or exceptions (if any) to the PAs/CRUSHER DRY GROUND MICA's note and plan are summarized below: [] (Hemant LOVE,Sami) Critical Care Note Critical Care Note Critical Care Time: non-applicable (Caden Amezquita)
[2018-01-06] MEDS ORDERED: ZITHROMAX250 M2 PO (08:45)
[2018-01-06] MEDS ORDERED: IBUPROFEN800 M1 PO (08:45)
[2018-01-06] MEDS ORDERED: PROAIR HFA8.5 GM INH (08:45)
== END 2018-01-04 23:22 ==
LOC: ERH 22:43
DX: R07.9 Chest pain, unspecified (principal)
CPT/HCPCS: 93005; 93010

== ENCOUNTER 2018-01-14 21:23 | Emergency (ER) | payer OTHER ==
[~2018-01-14] VITALS: Ht 167.6 cm; Wt 61.2 kg
[~2018-01-14 21:23] MED LIST changes: +IBUPROFEN800 M1 PO; +ZITHROMAX250 M2 PO
[2018-01-14 21:29] VITALS: BP 138/75
--- NOTE | 2018-01-14 21:49 | ED ANKLE/FOOT INJURY COMPLAINT ---
History of Present Illness General Chief Complaint: Foot or Ankle Injury Stated Complaint: R FOOT INJURY? Source: patient, old records Exam Limitations: no limitations Vital Signs & Intake/Output Vital Signs & Intake/Output Vital Signs Date Time Temp Pulse Resp B/P B/P Pulse O2 O2 Flow FiO2 Mean Ox Delivery Rate 01/14 2129 97.2 74 20 138/75 100 Room Air Allergies Coded Allergies: No Known Allergies (09/21/17) Reconcile Medications Albuterol Sulfate (Proair Hfa) 90 MCG HFA.AER.AD 2 PUF INH Q4-6 PRN PRN dyspnea Azithromycin (Zithromax) 250 MG TABLET 1 DP PO AD bronchitis 2 the first day followed by 1 for days 2-5 Ibuprofen 800 MG TABLET 1 TAB PO TID PRN pain Triage Note: PT HERE WITH C/O RIGHT FOOT PAIN. PT REPORTS PAIN AFTER SPARRING. NO DEFORMITY OR DISCOLORATION NOTED. PT AMBULATED WITHOUT DIFFICULTY. Triage Nurses Notes Reviewed? yes HPI: 22M no PMH presenting with left dorsal foot pain. Was sparring in [facility] earlier today, kicked his opponent who blocked the kick with his forearm, and now patient has dorsal foot tenderness. Able to walk without difficulty, no pain at rest, full ROM, sensation intact. Experienced mild palpitations and lightheadedness after that he attributed to anxiety, which has now resolved. Has had extensive workup in the past with no evidence of cardiac disease. No other complaints. Past History Travel History Traveled to [place] past 21 day No Medical History Any Pertinent Medical History? 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 No Review of Systems Review of Systems Constitutional: Reports: no symptoms. EENTM: Reports: no symptoms. Respiratory: Reports: no symptoms. Cardiovascular: Reports: no symptoms. GI: Reports: no symptoms. Genitourinary: Reports: no symptoms. Musculoskeletal: Reports: no symptoms. Skin: Reports: no symptoms. Neurological/Psychological: Reports: no symptoms. Hematologic/Endocrine: Reports: no symptoms. Immunologic/Allergic: Reports: no symptoms. All Other Systems: Reviewed and Negative Physical Exam Physical Exam General Appearance: well developed/nourished, no apparent distress Head: atraumatic, normal appearance Eyes: Bilateral: normal appearance. Ears, Nose, Throat: normal ENT inspection, hearing grossly normal Neck: normal inspection, supple, full range of motion Cardiovascular/Respiratory: normal breath sounds, regular rate/rhythm Back: normal inspection, normal range of motion Leg/Knee/Thigh Left: normal range of motion, normal inspection Leg/Knee/Thigh Right: normal range of motion, normal inspection Ankle Left: normal inspection, normal range of motion Ankle Right: normal inspection, normal range of motion Foot Left: normal inspection, normal range of motion Foot Right: normal inspection, normal range of motion Neuro/Vascular: normal motor function, normal sensation Psychiatric: awake, alert, oriented x 3 Skin: intact, normal color, warm/dry Progress Differential Diagnosis: DVT, CHF, arterial insufficiency, cellulitis, septic arthritis, gout, fracture, dislocation, sprain, contusion, compartmental syndrome Plan of Care: No evidence of fracture or foot injury. Likely panic attack following which has resolved. Patient can follow up with his PCP. Departure Departure Disposition: HOME OR SELF CARE Condition: Stable Clinical Impression Primary Impression: Foot pain, right Secondary Impressions: Anxiety Referrals: Kj LOVE,Antonio Kerr (PCP/Family) Additional Instructions: Follow up with your primary care provider. If you have new or worsening symptoms return to ER. Departure Forms: Customer Survey General Discharge Information
[2018-01-17] MEDS ORDERED: IBUPROFEN800 M1 PO (23:47)
== END 2018-01-14 21:57 ==
LOC: ERH 21:23
DX: F41.9 Anxiety disorder, unspecified (principal); M79.671 Pain in right foot

== ENCOUNTER 2018-01-16 20:49 | Emergency (ER) | payer OTHER ==
[~2018-01-16] VITALS: Ht 167.6 cm; Wt 61.2 kg
--- NOTE | 2018-01-16 21:38 | ED CARDIAC/CP/PALPITATIONS ---
History of Present Illness General Chief Complaint: Chest Pain Stated Complaint: CP PAIN Source: patient, old records Exam Limitations: no limitations Vital Signs & Intake/Output Vital Signs & Intake/Output Vital Signs Date Time Temp Pulse Resp B/P B/P Pulse O2 O2 Flow FiO2 Mean Ox Delivery Rate 01/160 98.2 78 18 136/82 98 01/16 2145 99 Room Air 01/161 98.5 77 18 144/91 97 Room Air Allergies Coded Allergies: No Known Allergies (09/21/17) Reconcile Medications Albuterol Sulfate (Proair Hfa) 90 MCG HFA.AER.AD 2 PUF INH Q4-6 PRN PRN dyspnea Azithromycin (Zithromax) 250 MG TABLET 1 DP PO AD bronchitis 2 the first day followed by 1 for days 2-5 Ibuprofen 800 MG TABLET 1 TAB PO TID PRN pain Triage Note: PT TO TRIAGE C/O CP AND ABD PAIN THAT BEGAN JUST [facility]AN[facility] C[facility] AT [facility]. PT STATES "SAME THING ALWAYS." PT SEEN HERE MULTIPLE TIMES FOR SAME Triage Nurses Notes Reviewed? yes Onset: Abrupt Duration: day(s): (1), constant, waxing and waning Timing: recent history Quality/Severity: moderate (aching) Location: substernal Radiation: no radiation Activities at Onset: [facility] Associated Symptoms: denies HPI: 22-year-old male well-known to this emergency room presents with similar complaints complaining of his legs feeling weak and complaining of chest pain while he was at his [facility] practice. The patient denies any recent trauma or injury to his chest. No nausea vomiting dizziness lightheadedness palpitations. He has been seen numerous times in the past for similar complaints he denies any alcohol or drug use. He is not taken anything for his symptoms. No modifying factors no shortness of breath (Paulino Ramos) Past History Travel History Traveled to [place] past 21 day No Medical History Any Pertinent Medical History? 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 No (Paulino Ramos) Review of Systems Review of Systems Constitutional: Reports: see HPI. Comments Review of systems: See HPI, All other systems negative. Constitutional, no chills no fever, no malaise no weight loss HEENT: no sore throat no congestion, no ear pain Cardiovascular: No chest pain , no palpitation Skin: no rashes, no change in skin Respiratory: No dyspnea no cough no sputum no hemoptysis GI: No nausea no vomiting, no diarrhea, no bloating/constipation : No dysuria No hematuria, no frequency Muscle skeletal: No joint pain, no back pain, no neck pain, Neurologic: , no headache Psych: No stress no depression,. Heme/endocrine: No bruising no bleeding Immunology: No lymphadenopathy (Paulino Ramos) Physical Exam Physical Exam General Appearance: well developed/nourished, no apparent distress, alert, awake , comfortable Cardiovascular: regular rate/rhythm Comments: Well-developed well-nourished patient in no apparent distress. HEENT: Atraumatic, extraocular motion intact Neck: Supple, FROM Back: FROM Cardiovascular: Regular rate and rhythms no murmurs rubs or gallops, Respiratory: Chest nontender.There were no bony deformities, no asymmetry. No respiratory distress. Patient speaking in full complete sentences. Breath sounds clear to auscultation bilaterally: NO W/R/R Extremities: full range of motion Neuro: awake, alert, and oriented to person, place and time. There were no obvious focal neurologic abnormalities. Skin: Warm & dry;No appreciable rash on exposed skin Psych: Mood affect normal, normal memory normal judgment. Core Measures ACS in differential dx? No CVA/TIA Diagnosis No Sepsis Present: No Sepsis Focused Exam Completed? No (Paulino Ramos) Progress Differential Diagnosis: musculoskeletal pain, anxiety, dehydration Plan of Care: Orders Procedure Date/time Status CBC WITHOUT DIFFERENTIAL 01/17 2148 Complete BASIC METABOLIC PANEL 01/17 2148 Complete Laboratory Tests 01/16/182204: Anion Gap 13, Estimated GFR > 60, BUN/Creatinine Ratio 13.6, Glucose 99, Calcium 9.8, CBC w Diff NO MAN DIFF REQ, RBC 5.51, MCV 84.8, MCH 27.9, MCHC 32.9 L, RDW 15.2 H, MPV 8.2, Gran % 72.4, Lymphocytes % 19.4 L, Monocytes % 6.7, Eosinophils % 1.2, Basophils % 0.3, Absolute Granulocytes 6.8 H, Absolute Lymphocytes 1.8, Absolute Monocytes 0.6, Absolute Eosinophils 0.1, Absolute Basophils 0 Patient seen numerous times in the past for similar complaints no shortness of breath no pain with inspiration or hemoptysis., No recent trauma or injury Patient had been seen here 1 week ago for the same which time EKG was unremarkable he's had numerous x-rays recently of the chest. I discussed with the patient at length all of their results. I had an extensive conversation regarding need for close follow up with their primary care physician this week as well as return precautions. I answered all of their questions, they feel comfortable with the plan and follow-up care. I discussed with the patient/family the medications that they will receive. I gave them signs and symptoms that could indicate an adverse reaction. I have advised them to limit their activities until they can see how they respond to the medication. Initial ED EKG: none (Paulino Ramos) Departure Departure Disposition: HOME OR SELF CARE Condition: Stable Clinical Impression Primary Impression: Chest pain Referrals: Kj LOVE,Antonio Kerr (PCP/Family) Additional Instructions: Follow-up with your primary care physician this week. Tylenol for pain Departure Forms: Customer Survey General Discharge Information (Paulino Ramos) PA/PLANT OPERATOR/SHIFT SUPERVISOR Co-Sign Statement Statement: ED Attending supervision documentation- [] I saw and evaluated the patient. I have also reviewed all the pertinent lab results and diagnostic results. I agree with the findings and the plan of care as documented in the PA's/PLANT OPERATOR/SHIFT SUPERVISOR's documentation. [X] I have reviewed the ED Record and agree with the PA's/PLANT OPERATOR/SHIFT SUPERVISOR's documentation. [] Additions or exceptions (if any) to the PAs/PLANT OPERATOR/SHIFT SUPERVISOR's note and plan are summarized below: [] (Cruz LOVE,Papo Gee) Critical Care Note Critical Care Note Critical Care Time: non-applicable (Paulino Ramos)
[2018-01-16 22:28] LABS: ABSOLUTE BASOPHIL COUNT 0 /CUMM (0.0-0.2); ABSOLUTE EOSINOPHIL COUNT 0.1 /CUMM (0.0-0.7); ABSOLUTE GRANULOCYTE CT 6.8 /CUMM (1.4-6.5); ABSOLUTE LYMPH COUNT 1.8 /CUMM (1.2-3.4); ABSOLUTE MONOCYTE COUNT 0.6 /CUMM (0.10-0.60); BASOPHIL % 0.3 % (0.0-2.0); EOSINOPHIL % 1.2 % (0-5); HEMATOCRIT 46.7 % (42-52); MEAN CORPUSCULAR HGB 27.9 PG (27.0-31.0); MEAN CORPUSCULAR HGB CONC 32.9 G/DL (33.0-37.0); MEAN CORPUSCULAR VOLUME 84.8 FL (80.0-94.0); MEAN PLATELET VOLUME 8.2 FL (7.4-10.4); PLATELET COUNT 284 /CUMM (130-400); RBC DISTRIBUTION WIDTH 15.2 % (11.5-14.5); RED BLOOD CELL CT 5.51 /CUMM (4.70-6.10); WHITE BLOOD CELL COUNT 9.4 /CUMM (4.8-10.8)
[2018-01-16 22:30] VITALS: BP 136/82
[2018-01-16 22:31] LABS: GRANULOCYTE % 72.4 % (42.2-75.2)
[2018-01-17] MEDS ORDERED: IBUPROFEN800 M1 PO (23:47)
== END 2018-01-16 23:01 ==
LOC: ERH 20:49
PROVIDERS: Physician Assistant Medical
DX: R07.9 Chest pain, unspecified (principal)

== ENCOUNTER 2018-01-20 08:03 | Emergency (ER) | payer OTHER ==
[~2018-01-20] VITALS: Ht 167.6 cm; Wt 61.2 kg
[2018-01-20 08:10] VITALS: BP 143/78
--- NOTE | 2018-01-20 09:48 | ED CARDIAC/CP/PALPITATIONS ---
History of Present Illness General Chief Complaint: Chest Pain Stated Complaint: CHEST PAIN Source: patient, old records Exam Limitations: no limitations Vital Signs & Intake/Output Vital Signs & Intake/Output Vital Signs Date Time Temp Pulse Resp B/P B/P Pulse O2 O2 Flow FiO2 Mean Ox Delivery Rate 01/20 857 99 Room Air 01/20 810 96.6 70 16 143/78 98 Room Air Allergies Coded Allergies: No Known Allergies (01/24/18) Reconcile Medications Albuterol Sulfate (Proair Hfa) 90 MCG HFA.AER.AD 2 PUF INH Q4-6 PRN PRN dyspnea Ibuprofen 800 MG TABLET 1 TAB PO TID PRN pain Triage Note: PT TO ED FOR CP THAT STARTED WHILE HE WAS WORKING OUT AN [employer]. "I HAVE ALOT OF HISTORY OF ANXIETY ATTACKS IT SEEMS LIKE ONE OF THOSE" AWAKE/ALERT WITH EASY WOB. VSS. EKG DONE IN TRIAGE. LAST SEEN FOR SAME 1 WK AGO PER PT. Triage Nurses Notes Reviewed? yes HPI: Patient presents for evaluation of left-sided chest pain that began about 60 minutes prior to arrival. Patient states that he initially began feeling dizzy while doing cardio. This was followed by a sharp left-sided chest pain that did not change with deep inspiration or movement. The chest pain lasted seconds and resolved spontaneously. The patient denies any known injury. Past History Travel History Traveled to [place] past 21 day No Medical History Any Pertinent Medical History? 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 No Review of Systems Review of Systems Constitutional: Reports: no symptoms. EENTM: Reports: no symptoms. Respiratory: Reports: no symptoms. Cardiovascular: Reports: see HPI. GI: Reports: no symptoms. Genitourinary: Reports: no symptoms. Musculoskeletal: Reports: no symptoms. Skin: Reports: no symptoms. Neurological/Psychological: Reports: no symptoms. Hematologic/Endocrine: Reports: no symptoms. Immunologic/Allergic: Reports: no symptoms. All Other Systems: Reviewed and Negative Physical Exam Physical Exam Cardiovascular: see below Comments: Gen.: Well-nourished, well-developed, no acute respiratory distress. Head: Normocephalic, atraumatic. Eyes: Normal inspection bilaterally Ears: Normal inspection bilaterally Nose: Normal inspection Throat/mouth : Moist mucosa Neck: Supple, full range of motion, no goiter Heart: Regular rate and rhythm, no murmurs rubs or gallops Lungs: Clear to auscultation bilaterally with normal air entry Chest: Nontender Back: Normal range of motion Abdomen: Soft, nontender, nondistended, normal bowel sounds Extremities: Normal range of motion grossly, equal radial pulses, no cyanosis clubbing or edema Neurologic: Cranial nerves grossly intact, speech is clear Skin: warm and dry Psychiatric: Calm, cooperative, no apparent delusions or hallucinations Core Measures ACS in differential dx? No CVA/TIA Diagnosis No Sepsis Present: No Sepsis Focused Exam Completed? No Progress Differential Diagnosis: AMI, aortic dissection, costochondritis, musculoskeletal pain, pericarditis, unstable angina Plan of Care: Orders Procedure Date/time Status EKG 01/21 804 Active Initial ED EKG: NSR, no ST T wave changes Comments: The description of the patient's chest pain I do not feel is concerning for acute coronary syndrome or aortic disease. Patient's EKG shows J-point elevations but no acute change compared with prior. Patient has no significant cardiac risk factors. His neurologic examination is nonfocal showing intact cranial nerves (I reassured the patient that he is not suffering a stroke). Departure Departure Disposition: HOME OR SELF CARE Condition: Stable Clinical Impression Primary Impression: Atypical chest pain Referrals: Kj LOVE,Antonio Kerr (PCP/Family) Additional Instructions: Avoid over training. Follow-up with your primary care physician for reevaluation within the week. Return if any concerns or sudden worsening. Thank you for choosing the [facility] Emergency Department for your care. It was a pleasure to serve you today. John Eller M.D. [facility] Departure Forms: Customer Survey General Discharge Information Critical Care Note Critical Care Note Critical Care Time: non-applicable
== END 2018-01-20 09:57 ==
LOC: ERH 08:03
DX: R07.89 Other chest pain (principal)
CPT/HCPCS: 93005; 93010

== ENCOUNTER 2018-01-22 18:30 | Emergency (ER) | payer OTHER ==
[~2018-01-22] VITALS: Ht 167.6 cm; Wt 61.2 kg
--- NOTE | 2018-01-22 19:29 | ED AMS/SEIZURE/WEAK/DIZZY ---
History of Present Illness General Chief Complaint: Dizziness Stated Complaint: DIZZINESS Source: patient Exam Limitations: no limitations Vital Signs & Intake/Output Vital Signs & Intake/Output Vital Signs Date Time Temp Pulse Resp B/P B/P Pulse O2 O2 Flow FiO2 Mean Ox Delivery Rate 01/22 1942 97.1 55 16 129/77 99 Room Air Allergies Coded Allergies: No Known Allergies (09/21/17) Reconcile Medications Albuterol Sulfate (Proair Hfa) 90 MCG HFA.AER.AD 2 PUF INH Q4-6 PRN PRN dyspnea Ibuprofen 800 MG TABLET 1 TAB PO TID PRN pain Triage Nurses Notes Reviewed? yes Onset: Gradual Duration: day(s):, waxing and waning Timing: recent history Injury Environment: home Severity: mild Modifying Factors: Improves With: rest. Associated Symptoms: dizzines, anxiety HPI: 22 yo mackenzie h/o concussions, dizziness, and anxiety, presents with an episode of dizziness, consistent with his prior episodes. He notes that he had extra doses of caffeine and espresso this morning. His symptoms began soon thereafter. He comes today "so that you can check me out so that I know that I'm okay." He notes that he has been seeing his PMD and is scheduled for a group therapy session in coming weeks. He declines referral to a neurologist. He is otherwise well, denies drug/alcohol use. He continues to work out at his [employer], non contact. Past History Travel History Traveled to [place] past 21 day No Medical History Any Pertinent Medical History? 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 No Review of Systems Review of Systems Constitutional: Reports: no symptoms. EENTM: Reports: no symptoms. Respiratory: Reports: no symptoms. Cardiovascular: Reports: no symptoms. GI: Reports: no symptoms. Genitourinary: Reports: no symptoms. Musculoskeletal: Reports: no symptoms. Skin: Reports: no symptoms. Neurological/Psychological: Reports: no symptoms. Hematologic/Endocrine: Reports: no symptoms. Immunologic/Allergic: Reports: no symptoms. All Other Systems: Reviewed and Negative Physical Exam Physical Exam General Appearance: well developed/nourished, no apparent distress Head: atraumatic, normal appearance Eyes: Bilateral: normal appearance, PERRL, EOMI. Ears, Nose, Throat: normal pharynx, normal ENT inspection Neck: normal inspection, supple, full range of motion Respiratory: normal breath sounds, chest non-tender, no respiratory distress, quiet respiration, lungs clear Cardiovascular: regular rate/rhythm Gastrointestinal: normal bowel sounds, soft, non-tender Back: normal inspection, normal range of motion Extremities: normal range of motion Neurologic/Psych: no motor/sensory deficits, awake, alert, oriented x 3 Skin: intact, normal color, warm/dry Core Measures ACS in differential dx? No CVA/TIA Diagnosis No Sepsis Present: No Sepsis Focused Exam Completed? No Progress Differential Diagnosis: concussion, dizziness vs other. Plan of Care: discussed at length... extensive work ups have been negative (mri's head ct's, ekg's, labs)... will defer workup... reassurance given. close follow up emphasized. Initial ED EKG: none Departure Departure Disposition: HOME OR SELF CARE Condition: Stable Clinical Impression Primary Impression: Dizziness Referrals: Kj LOVE,Antonio Kerr (PCP/Family) Departure Forms: Customer Survey General Discharge Information
[2018-01-22 19:42] VITALS: BP 129/77
== END 2018-01-22 20:36 ==
LOC: ERH 18:30
DX: R42 Dizziness and giddiness (principal)

== ENCOUNTER 2018-01-24 17:01 | Emergency (ER) | payer OTHER ==
[~2018-01-24] VITALS: Ht 167.6 cm; Wt 61.2 kg
[2018-01-24 17:33] VITALS: BP 157/82
== END 2018-01-24 18:31 | disposition admitted as inpatient to this hospital (09) ==
LOC: ERH 17:01
DX: R07.9 Chest pain, unspecified (principal)

== ENCOUNTER 2018-01-24 21:49 | Emergency (ER) | payer OTHER ==
[~2018-01-24] VITALS: Ht 167.6 cm; Wt 61.2 kg
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
[2018-01-24 23:29] VITALS: BP 146/75
== END 2018-01-24 23:30 ==
LOC: ERH 21:49
DX: R07.89 Other chest pain (principal)
CPT/HCPCS: 93005; 93010

== ENCOUNTER 2018-02-03 22:43 | Emergency (ER) | payer OTHER ==
[~2018-02-03] VITALS: Ht 167.6 cm; Wt 61.2 kg
--- NOTE | 2018-02-03 23:34 | ED GENERAL ADULT ---
See Addendum History of Present Illness General Chief Complaint: Chest Pain Stated Complaint: PT IS HAVING CHEST PAIN AND BREATHING PROBLEM Source: patient Exam Limitations: no limitations Vital Signs & Intake/Output Vital Signs & Intake/Output Vital Signs Date Time Temp Pulse Resp B/P B/P Pulse O2 O2 Flow FiO2 Mean Ox Delivery Rate 02/04 0134 96.1 81 18 152/79 96 Room Air 02/03 2308 97.1 75 18 105/73 98 Room Air ED Intake and Output 02/04 0000 02/03 1200 Intake Total 0 Output Total Balance 0 Intake, Oral 0 Patient 135 lb Weight Weight Estimated Measurement Method Allergies Coded Allergies: No Known Allergies (01/24/18) Reconcile Medications Albuterol Sulfate (Proair Hfa) 90 MCG HFA.AER.AD 2 PUF INH Q4-6 PRN PRN dyspnea Ibuprofen 800 MG TABLET 1 TAB PO TID PRN pain Triage Note: RECEIVED 22 YO MALE C/O LEFT SIDED CHEST PAIN PT DENIES PAIN AT PRESENT. PT CURRENTLY REPORTS DIZZINESS AND DIFFICULTY BREATHING. Triage Nurses Notes Reviewed? yes Onset: Abrupt Duration: week(s): Timing: recent history HPI: 02/04/18 12:18 AM 22-year-old male presents to the emergency department complaining of chest pain. He says he's been having intermittent episodes of chest pain for years. He says he was seen at [place] and they told him that he had an abnormality of with his left ventricle. He does have a history of anxiety. He denies smoking or drug use. In the emergency Department he is quite anxious. His old records were requested from [place]. Past History Travel History Traveled to [place] past 21 day No Medical History Any Pertinent Medical History? 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 No Review of Systems Review of Systems Constitutional: Denies: fever. EENTM: Reports: no symptoms. Respiratory: Reports: see HPI. Cardiovascular: Reports: see HPI. GI: Reports: no symptoms. Genitourinary: Reports: no symptoms. Musculoskeletal: Reports: no symptoms. Skin: Reports: no symptoms. Neurological/Psychological: Reports: no symptoms. Hematologic/Endocrine: Reports: no symptoms. Immunologic/Allergic: Reports: no symptoms. Physical Exam Physical Exam General Appearance: alert, awake, anxious, mild distress Head: atraumatic, normal appearance Eyes: Bilateral: normal appearance, PERRL, EOMI. Ears, Nose, Throat: normal pharynx, normal ENT inspection Neck: normal inspection, supple Respiratory: normal breath sounds, chest non-tender, no respiratory distress Cardiovascular: regular rate/rhythm Peripheral Pulses: 4+ radial (R), 4+ radial (L) Gastrointestinal: soft, non-tender Back: normal range of motion Extremities: normal range of motion, no edema Neurologic/Psych: no motor/sensory deficits, awake, alert, oriented x 3 Skin: intact, normal color, warm/dry Core Measures ACS in differential dx? No CVA/TIA Diagnosis: No Sepsis Present: No Sepsis Focused Exam Completed? No Progress Differential Diagnoses I considered the following diagnoses in my evaluation of the patient: [Anxiety, valvular heart disease, coronary vasospasm, idopathic hypertrophic aortic stenosis] Plan of Care: Orders Procedure Date/time Status EKG 02/03 2245 Active Initial ED EKG: NSR, nonspecific ST T wave chg Prior EKG: unchanged Departure Departure Disposition: HOME OR SELF CARE Condition: Stable Clinical Impression Primary Impression: Chest pain Referrals: Kj LOVE,Antonio Kerr (PCP/Family) Departure Forms: Customer Survey General Discharge Information Comments 02/04/18 The patient's old records were reviewed from [place]. His EKG showed evidence of left ventricular hypertrophy. An ultrasound was recommended. He has had these symptoms for over 2 years. On reevaluation he had no chest pain or difficulty breathing. He is pending echocardiogram by his primary care doctor. Critical Care Note Critical Care Note Critical Care Time: non-applicable
[2018-02-04 01:34] VITALS: BP 152/79
== END 2018-02-04 01:37 ==
LOC: ERH 22:43
DX: R07.9 Chest pain, unspecified (principal)
CPT/HCPCS: 93005; 93010

== ENCOUNTER 2018-02-10 18:31 | Emergency (ER) | payer OTHER ==
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
[2018-02-10 19:05] VITALS: BP 118/72
== END 2018-02-10 19:06 ==
LOC: ERH 18:31
DX: R42 Dizziness and giddiness (principal); R07.9 Chest pain, unspecified
CPT/HCPCS: 93005; 93010

== ENCOUNTER 2018-02-12 17:41 | Emergency (ER) | payer OTHER ==
[~2018-02-12] VITALS: Ht 167.6 cm; Wt 65.8 kg
--- NOTE | 2018-02-12 18:25 | ED CARDIAC/CP/PALPITATIONS ---
History of Present Illness General Chief Complaint: Dizziness Stated Complaint: DIZZY Source: patient, old records Exam Limitations: no limitations Vital Signs & Intake/Output Vital Signs & Intake/Output Vital Signs Date Time Temp Pulse Resp B/P B/P Pulse O2 O2 Flow FiO2 Mean Ox Delivery Rate 02/12 2023 98.2 78 18 146/75 98 Room Air 02/12 1757 97.4 81 16 122/80 98 Room Air Allergies Coded Allergies: No Known Allergies (01/24/18) Reconcile Medications Albuterol Sulfate (Proair Hfa) 90 MCG HFA.AER.AD 2 PUF INH Q4-6 PRN PRN dyspnea Ibuprofen 800 MG TABLET 1 TAB PO TID PRN pain Triage Note: PT PRESENTS TO THE ER C/O FEELING LIKE HE IS GONNA PASS OUT AND THAT HE IS SHAKEY. ONSET A FEW DAYS PER PT.. PT STATES HE HAS CHEST PAIN ALSO BUT AN EKG WAS DONE 4 DAYS AGO AND IT WAS NORMAL.. PT STATES "I HAVE CHEST PAIN RIGHT NOW" 8/10 CHEST PAIN PER PT FOR 4 DAYS BUT GETTING WORSE.. Triage Nurses Notes Reviewed? yes Onset: Abrupt Duration: acute on chronic issue Timing: single episode today Radiation: no radiation Activities at Onset: none HPI: 22-year-old male comes in with complaints of dizziness and chest pain. Patient has been seen here many times for the same in the past. He feels lightheaded. 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 He reports that he's been doing a keto diet recently. (Caden Amezquita) Past History Travel History Traveled to [place] past 21 day No Medical History Any Pertinent Medical History? 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 No (Caden Amezquita) Review of Systems Review of Systems Constitutional: Reports: no symptoms. EENTM: Reports: no symptoms. Respiratory: Reports: see HPI. Cardiovascular: Reports: see HPI. GI: Reports: no symptoms. Genitourinary: Reports: no symptoms. Musculoskeletal: Reports: no symptoms. Skin: Reports: no symptoms. Neurological/Psychological: Reports: no symptoms. Hematologic/Endocrine: Reports: no symptoms. Immunologic/Allergic: Reports: no symptoms. All Other Systems: Reviewed and Negative (Caden Amezquita) Physical Exam Physical Exam General Appearance: well developed/nourished, alert, awake Head: atraumatic Eyes: Bilateral: normal appearance, PERRL, EOMI. Ears, Nose, Throat: normal ENT inspection, hearing grossly normal Neck: normal inspection Respiratory: normal breath sounds, no respiratory distress Cardiovascular: regular rate/rhythm Gastrointestinal: soft Back: normal inspection Extremities: normal inspection, normal range of motion, no edema Neurologic/Psych: awake, alert, oriented x 3, normal gait Skin: intact, normal color Core Measures ACS in differential dx? Yes CVA/TIA Diagnosis No Sepsis Present: No Sepsis Focused Exam Completed? No (Caden Amezquita) Progress Differential Diagnosis: AMI, costochondritis, pericarditis, anxiety Plan of Care: Orders Procedure Date/time Status TROPONIN LEVEL 02/13 1824 Complete COMPREHENSIVE METABOLIC PANEL 02/13 1824 Complete CBC WITHOUT DIFFERENTIAL 02/13 1824 Complete EKG 02/12 1758 Active Laboratory Tests 02/12/18 1900: Anion Gap 13, Estimated GFR > 60, BUN/Creatinine Ratio 19.0, Glucose 92, Calcium 10.1, Total Bilirubin 0.6, AST 22, ALT 29, Alkaline Phosphatase 71, Troponin I < 0.01, Total Protein 7.9, Albumin 5.0, Globulin 2.9, Albumin/Globulin Ratio 1.7, CBC w Diff NO MAN DIFF REQ, RBC 5.81, MCV 84.1, MCH 28.3, MCHC 33.7, RDW 14.7 H , MPV 8.3, Gran % 59.0, Lymphocytes % 29.6, Monocytes % 9.1, Eosinophils % 1.9, Basophils % 0.4, Absolute Granulocytes 3.9, Absolute Lymphocytes 2.0, Absolute Monocytes 0.6, Absolute Eosinophils 0.1, Absolute Basophils 0 Initial ED EKG: normal sinus rhythm, rate (74), nonspecific ST T wave chg (Caden Amezquita) Departure Departure Disposition: HOME OR SELF CARE Condition: Stable Clinical Impression Primary Impression: Dizziness Secondary Impressions: Atypical chest pain Referrals: Kj LOVE,Antonio Kerr (PCP/Family) Additional Instructions: Follow-up with your primary care doctor. Return if any concerns worsening symptoms. Please go over all results of today's visit with your primary care doctor. Contact your primary care doctor to let them know you were here in the emergency room. There may be nonspecific findings which may not be related to your visit today here in the emergency room but may require further evaluation and chronic monitoring by your primary care doctor. If you had a laceration today the chance of foreign body always remains. You should follow-up with your primary care doctor for recheck in 3-5 days for a wound check. If you had an x-ray done there is a chance that a fracture could have been missed on initial read and you should follow-up with your primary care doctor for repeat x-rays if symptoms persist. If your blood pressure was elevated here in the emergency room please have rechecked by [facility] primary care doctor within the next 48. If you were prescribed a narcotic here in the emergency room or any type of controlled substances you're not allowed to drive while taking this medication or operate any type of heavy machinery. Narcotics can make you feel lightheaded dizziness nausea and can cause constipation. You may need to picker / packer a stool softener. Thank you for choosing [facility] emergency room. Please return to the emergency room immediately if you have any other concerns worsening of symptoms. Departure Forms: Customer Survey General Discharge Information (Caden Amezquita) PA/INSPECTOR FILTER TIP Co-Sign Statement Statement: ED Attending supervision documentation- X I saw and evaluated the patient. I have also reviewed all the pertinent lab results and diagnostic results. I agree with the findings and the plan of care as documented in the PA's/INSPECTOR FILTER TIP's documentation. [] I have reviewed the ED Record and agree with the PA's/INSPECTOR FILTER TIP's documentation. [] Additions or exceptions (if any) to the PAs/INSPECTOR FILTER TIP's note and plan are summarized below: [] (Hemant LOVE,Sami) Critical Care Note Critical Care Note Critical Care Time: non-applicable (Caden Amezquita)
[2018-02-12 19:20] LABS: ABSOLUTE BASOPHIL COUNT 0 /CUMM (0.0-0.2); ABSOLUTE EOSINOPHIL COUNT 0.1 /CUMM (0.0-0.7); ABSOLUTE GRANULOCYTE CT 3.9 /CUMM (1.4-6.5); ABSOLUTE MONOCYTE COUNT 0.6 /CUMM (0.10-0.60); BASOPHIL % 0.4 % (0.0-2.0); EOSINOPHIL % 1.9 % (0-5); HEMATOCRIT 48.8 % (42-52); MEAN CORPUSCULAR HGB 28.3 PG (27.0-31.0); MEAN CORPUSCULAR HGB CONC 33.7 G/DL (33.0-37.0); MEAN CORPUSCULAR VOLUME 84.1 FL (80.0-94.0); MEAN PLATELET VOLUME 8.3 FL (7.4-10.4); PLATELET COUNT 253 /CUMM (130-400); RBC DISTRIBUTION WIDTH 14.7 % (11.5-14.5); RED BLOOD CELL CT 5.81 /CUMM (4.70-6.10); WHITE BLOOD CELL COUNT 6.7 /CUMM (4.8-10.8)
[2018-02-12 20:23] VITALS: BP 146/75
[2018-04-02] MEDS ORDERED: ZITHROMAX250 M2 PO (21:02)
[2018-04-02] MEDS ORDERED: TESSALON PERLE100 M1 PO (21:02)
== END 2018-02-12 20:25 ==
LOC: ERH 17:41
PROVIDERS: Physician Assistant Medical
DX: R42 Dizziness and giddiness (principal); R07.89 Other chest pain
CPT/HCPCS: 93005; 93010

== ENCOUNTER 2018-02-13 08:52 | Emergency (ER) | payer OTHER ==
[2018-02-13 09:28] LABS: ABSOLUTE BASOPHIL COUNT 0 /CUMM (0.0-0.2); ABSOLUTE EOSINOPHIL COUNT 0.1 /CUMM (0.0-0.7); ABSOLUTE GRANULOCYTE CT 3.9 /CUMM (1.4-6.5); ABSOLUTE LYMPH COUNT 2.6 /CUMM (1.2-3.4); ABSOLUTE MONOCYTE COUNT 0.6 /CUMM (0.10-0.60); BASOPHIL % 0.5 % (0.0-2.0); GRANULOCYTE % 52.9 % (42.2-75.2); HEMATOCRIT 47.9 % (42-52); MEAN CORPUSCULAR HGB 29.3 PG (27.0-31.0); MEAN CORPUSCULAR HGB CONC 35.1 G/DL (33.0-37.0); MEAN CORPUSCULAR VOLUME 83.3 FL (80.0-94.0); MEAN PLATELET VOLUME 8.2 FL (7.4-10.4); PLATELET COUNT 268 /CUMM (130-400); RED BLOOD CELL CT 5.76 /CUMM (4.70-6.10); WHITE BLOOD CELL COUNT 7.3 /CUMM (4.8-10.8)
--- NOTE | 2018-02-13 09:58 | RADIOLOGY REPORT ---
EXAMINATION: XR CHEST CLINICAL INFORMATION: Cough. Low O2 sats. COMPARISON: Chest 01/04/2018. TECHNIQUE: 2 views of the chest were obtained. FINDINGS: The lungs are well-expanded and clear. The heart size and pulmonary vascularity is normal. No gross bony abnormality seen. IMPRESSION: Unremarkable chest exam.
--- NOTE | 2018-02-13 10:58 | ED CARDIAC/CP/PALPITATIONS ---
History of Present Illness General Chief Complaint: Chest Pain Stated Complaint: CHEST PAIN Vital Signs & Intake/Output Vital Signs & Intake/Output Vital Signs Date Time Temp Pulse Resp B/P B/P Pulse O2 O2 Flow FiO2 Mean Ox Delivery Rate 02/13 914 98.1 64 20 138/78 95 Room Air Allergies Coded Allergies: No Known Allergies (01/24/18) Reconcile Medications Albuterol Sulfate (Proair Hfa) 90 MCG HFA.AER.AD 2 PUF INH Q4-6 PRN PRN dyspnea Ibuprofen 800 MG TABLET 1 TAB PO TID PRN pain Triage Note: PER PT SEEN AT [facility] TOLD EKG WAS ABNORMAL HAD ECHO THERE WAS NORMAL, 1 WEEK AGO TOLD HERE EKGS ALWAYS OK. 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 Surgical History Surgical History: non-contributory Psychosocial History Who do you live with Family What is your primary language Norwegian Tobacco Use: Never used Progress Plan of Care: Orders Procedure Date/time Status TROPONIN LEVEL 02/13 09 Complete COMPREHENSIVE METABOLIC PANEL 02/13 0916 Complete CBC WITHOUT DIFFERENTIAL 02/14 916 Complete EKG 02/13 0853 Active Laboratory Tests 02/13/18 0920: Anion Gap 14, Estimated GFR > 60, BUN/Creatinine Ratio 22.0, Glucose 91, Calcium 10.1, Total Bilirubin 0.5, AST 23, ALT 34, Alkaline Phosphatase 73, Troponin I < 0.01, Total Protein 8.1, Albumin 4.9, Globulin 3.2, Albumin/Globulin Ratio 1.5, CBC w Diff NO MAN DIFF REQ, RBC 5.76, MCV 83.3, MCH 29.3, MCHC 35.1, RDW 14.0, MPV 8.2, Gran % 52.9, Lymphocytes % 36.1, Monocytes % 8.5, Eosinophils % 2.0, Basophils % 0.5, Absolute Granulocytes 3.9, Absolute Lymphocytes 2.6, Absolute Monocytes 0.6, Absolute Eosinophils 0.1, Absolute Basophils 0 Departure Departure Condition: Stable Referrals: Kj LOVE,Antonio Kerr (PCP/Family) Departure Forms: Customer Survey General Discharge Information
--- NOTE | 2018-02-13 11:34 | ED GENERAL ADULT ---
History of Present Illness General Chief Complaint: Chest Pain Stated Complaint: CHEST PAIN Source: patient, old records Exam Limitations: no limitations Vital Signs & Intake/Output Vital Signs & Intake/Output Vital Signs Date Time Temp Pulse Resp B/P B/P Pulse O2 O2 Flow FiO2 Mean Ox Delivery Rate 02/13 1458 98.5 61 20 114/80 99 Room Air 02/13 1344 98.2 68 20 134/72 96 Room Air 02/13 0914 98.1 64 20 138/78 95 Room Air Allergies Coded Allergies: No Known Allergies (01/24/18) Reconcile Medications Albuterol Sulfate (Proair Hfa) 90 MCG HFA.AER.AD 2 PUF INH Q4-6 PRN PRN dyspnea Ibuprofen 800 MG TABLET 1 TAB PO TID PRN pain Triage Note: PER PT SEEN AT [facility] TOLD EKG WAS ABNORMAL HAD ECHO THERE WAS NORMAL, 1 WEEK AGO TOLD HERE EKGS ALWAYS OK. I AM UST FREAKING MYSELF OUT Triage Nurses Notes Reviewed? yes HPI: Patient presents for evaluation of sudden onset of lower substernal chest pain that began about 6:00 this morning. The pain lasted 5-10 minutes and was associated with dizziness and sweating. The pain began while he was lying in bed. The pain resolves spontaneously. He describes it as a sharp lower substernal pain. Past History Travel History Traveled to [place] past 21 day No Medical History Any Pertinent Medical History? 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 No Review of Systems Review of Systems Constitutional: Reports: no symptoms. EENTM: Reports: no symptoms. Respiratory: Reports: no symptoms. Cardiovascular: Reports: chest pain. GI: Reports: no symptoms. Genitourinary: Reports: no symptoms. Musculoskeletal: Reports: no symptoms. Skin: Reports: no symptoms. Neurological/Psychological: Reports: no symptoms. Hematologic/Endocrine: Reports: no symptoms. Immunologic/Allergic: Reports: no symptoms. All Other Systems: Reviewed and Negative Physical Exam Physical Exam General Appearance: see below Comments: Gen.: Well-nourished, well-developed, no acute respiratory distress. Head: Normocephalic, atraumatic. Eyes: Normal inspection bilaterally Ears: Normal inspection bilaterally Nose: Normal inspection Throat/mouth : Moist mucosa Neck: Supple, full range of motion, no goiter Heart: Regular rate and rhythm, no murmurs rubs or gallops Lungs: Clear to auscultation bilaterally with normal air entry Chest: Nontender Back: Normal range of motion Abdomen: Soft, epigastric tenderness with brief voluntary guarding but did not reproduce the chief complaint, nondistended, normal bowel sounds Extremities: Normal range of motion grossly, equal radial pulses, no cyanosis clubbing or edema Neurologic: Cranial nerves grossly intact, speech is clear Skin: warm and dry Psychiatric: Calm, cooperative, no apparent delusions or hallucinations Core Measures ACS in differential dx? No CVA/TIA Diagnosis: No Sepsis Present: No Sepsis Focused Exam Completed? No Progress Differential Diagnoses I considered the following diagnoses in my evaluation of the patient: Plan of Care: Orders Procedure Date/time Status TROPONIN LEVEL 02/13 1330 Complete EKG 02/13 1330 Active TROPONIN LEVEL 02/13 0916 Complete COMPREHENSIVE METABOLIC PANEL 02/13 0916 Complete CBC WITHOUT DIFFERENTIAL 02/13 0916 Complete EKG 02/13 0853 Active Laboratory Tests 02/13/18 1342: Troponin I < 0.01 02/13/18 0920: Anion Gap 14, Estimated GFR > 60, BUN/Creatinine Ratio 22.0, Glucose 91, Calcium 10.1, Total Bilirubin 0.5, AST 23, ALT 34, Alkaline Phosphatase 73, Troponin I < 0.01, Total Protein 8.1, Albumin 4.9, Globulin 3.2, Albumin/Globulin Ratio 1.5, CBC w Diff NO MAN DIFF REQ, RBC 5.76, MCV 83.3, MCH 29.3, MCHC 35.1, RDW 14.0, MPV 8.2, Gran % 52.9, Lymphocytes % 36.1, Monocytes % 8.5, Eosinophils % 2.0, Basophils % 0.5, Absolute Granulocytes 3.9, Absolute Lymphocytes 2.6, Absolute Monocytes 0.6, Absolute Eosinophils 0.1, Absolute Basophils 0 Diagnostic Imaging: Discussed w/RAD: Radiology Read. CXR Impression: PATIENT: GERMÁN MONTES PRESENT AGE: 22 PATIENT ACCOUNT NO: [id number] : 97 LOCATION: [facility] ORDERING PHYSICIAN: John Eller MD SERVICE DATE: 02/13/18 EXAM TYPE: RAD - XRY-CHEST XRAY, TWO VIEWS EXAMINATION: XR CHEST CLINICAL INFORMATION: Cough. Low O2 sats. COMPARISON: Chest 01/04/2018. TECHNIQUE: 2 views of the chest were obtained. FINDINGS: The lungs are well-expanded and clear. The heart size and pulmonary vascularity is normal. No gross bony abnormality seen. IMPRESSION: Unremarkable chest exam. DICTATED BY: Jj Vogt MD DATE/TIME DICTATED:953 GARBAGE COLLECTOR:DAVID DATE/TIME TRANSCRIBED:02/13/18953 CONFIDENTIAL, DO NOT COPY WITHOUT APPROPRIATE AUTHORIZATION. <Electronically signed in Other Vendor System> SIGNED BY: Jj Vogt MD 02/13/18957 Initial ED EKG: NSR, ST segment elevations in the anterior leads with loss of concavity of ST segment Prior EKG: changed Repeat EKG: unchanged Comments: 02/13/2018 11:44:39 AM prior to my formerly seeing Germán, he asked me in the hallway how his EKG looked. I notified him of the ST segment elevations seen in the anterior leads. He states at that point he began having a second episode of sharp chest pain that resolved prior to my formal evaluation. He agrees to having a repeat EKG and troponin. 02/13/2018 3:01:59 PM I have updated Germán on his test results (I had to wake him from sleep). Although he has the loss of can cavity of the ST segments in the anterior leads but did not feel his clinical presentation was consistent with an acute AK. I've discussed this case with Dr. Venu Leblanc who has reviewed his EKG and feels that this should be considered a normal variant in this young otherwise healthy patient with his recent normal echocardiogram. I considered the following: Pericarditis but the patient had no pericardial friction rub, no preceding viral illnesses and no EKG changes consistent with this. Acute coronary syndrome but the patient's EKG showed no acute changes, the troponin level was normal, the patient had a paucity of risk factors and the patient's clinical presentation wasn't consistent with this. Pneumothorax but the chest x-ray did not show this. Pneumonia but the chest x-ray did not show infiltrate. Pulmonary embolus but the patient had no resting tachycardia, was not hypoxic, had a paucity of risk factors and was PERC negative. Aortic aneurysm but the description of the patient's pain was inconsistent with this. The chest x-ray showed no widened mediastinum or other changes consistent with this. In addition the patient had a paucity of risk factors. 02/13/2018 4:03:22 PM patient was seen by Dr. Venu Leblanc in the emergency department. Departure Departure Disposition: HOME OR SELF CARE Condition: Stable Clinical Impression Primary Impression: Atypical chest pain Referrals: Kj LOVE,Antonio Kerr (PCP/Family) Additional Instructions: Follow-up as discussed with Dr. Leblanc. Notify your primary care physician of this emergency department visit and treatment plan. Return if any concerns or sudden worsening. Thank you for choosing the [facility] Emergency Department for your care. It was a pleasure to serve you today. John Eller M.D. [facility] Departure Forms: Customer Survey General Discharge Information Critical Care Note Critical Care Note Critical Care Time: non-applicable
[2018-02-13 14:58] VITALS: BP 114/80
[2018-04-02] MEDS ORDERED: TESSALON PERLE100 M1 PO (21:02)
[2018-04-02] MEDS ORDERED: ZITHROMAX250 M2 PO (21:02)
== END 2018-02-13 16:12 ==
LOC: ERH 08:52
PROVIDERS: Emergency Medicine
DX: R07.89 Other chest pain (principal)
CPT/HCPCS: 71046; 93005; 93010

== ENCOUNTER 2018-02-16 02:36 | Emergency (ER) | payer OTHER ==
--- NOTE | 2018-02-16 04:44 | ED AMS/SEIZURE/WEAK/DIZZY ---
History of Present Illness General Chief Complaint: Chest Pain Stated Complaint: "CHEST PAIN" Source: patient, old records Exam Limitations: no limitations Vital Signs & Intake/Output Vital Signs & Intake/Output Vital Signs Date Time Temp Pulse Resp B/P B/P Pulse O2 O2 Flow FiO2 Mean Ox Delivery Rate 02/16 0244 96.4 91 18 136/76 96 Room Air Allergies Coded Allergies: No Known Allergies (01/24/18) Reconcile Medications Albuterol Sulfate (Proair Hfa) 90 MCG HFA.AER.AD 2 PUF INH Q4-6 PRN PRN dyspnea Ibuprofen 800 MG TABLET 1 TAB PO TID PRN pain Triage Note: PT TO TRIAGE STATING HE WOKE UP TO USE THE BATHROOM AND FELT EXTREMELY DIZZY. DENIES PAIN. Triage Nurses Notes Reviewed? yes Onset: Just prior to arrival Duration: minute(s):, constant, continues in ED Timing: recent history Injury Environment: home Severity: moderate, severe Modifying Factors: Worsens With: movement. Associated Symptoms: back pain HPI: Prior to admission patient awoke to go the bathroom and felt dizzy off balance. He denies fever chills nausea vomiting diarrhea abdominal pain chest pain shortness breath headache dysuria rash bleeding. Past History Travel History Traveled to [place] past 21 day No Medical History Any Pertinent Medical History? 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 No Review of Systems Review of Systems Constitutional: Reports: no symptoms. EENTM: Reports: no symptoms. Respiratory: Reports: no symptoms. Cardiovascular: Reports: no symptoms. GI: Reports: no symptoms. Genitourinary: Reports: no symptoms. Musculoskeletal: Reports: no symptoms. Skin: Reports: no symptoms. Neurological/Psychological: Reports: see HPI. Hematologic/Endocrine: Reports: no symptoms. Immunologic/Allergic: Reports: no symptoms. All Other Systems: Reviewed and Negative Physical Exam Physical Exam General Appearance: well developed/nourished, alert, awake, anxious, comfortable , moderate distress Head: atraumatic, normal appearance Eyes: Bilateral: normal appearance, PERRL, EOMI. Ears, Nose, Throat: normal pharynx, normal ENT inspection, hearing grossly normal Neck: normal inspection, supple, full range of motion, no midline tenderness Respiratory: normal breath sounds, chest non-tender, no respiratory distress, quiet respiration, lungs clear Cardiovascular: regular rate/rhythm, normal peripheral pulses, norml femoral pulses equa Peripheral Pulses: 4+ carotid (R), 4+ carotid (L) Gastrointestinal: normal bowel sounds, soft, non-tender, no organomegaly Back: normal inspection, normal range of motion Extremities: normal range of motion, no ligament instability Neurologic/Psych: no motor/sensory deficits, awake, alert, oriented x 3, normal gait, normal mood/affect, 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 Skin: intact, normal color, warm/dry Lymphatic: no anterior cervical papi Core Measures ACS in differential dx? No CVA/TIA Diagnosis No Sepsis Present: No Sepsis Focused Exam Completed? No Progress Differential Diagnosis: benign positional vertigo, dehydration Plan of Care: Food water Initial ED EKG: none Departure Departure Time of Disposition: 442 Disposition: HOME OR SELF CARE Condition: Stable Clinical Impression Primary Impression: Dizziness Referrals: Kj LOVE,Antonio Kerr (PCP/Family) Departure Forms: Customer Survey General Discharge Information
[2018-02-16 04:47] VITALS: BP 156/89
[2018-04-02] MEDS ORDERED: ZITHROMAX250 M2 PO (21:02)
[2018-04-02] MEDS ORDERED: TESSALON PERLE100 M1 PO (21:02)
== END 2018-02-16 04:49 ==
LOC: ERH 02:36
DX: R42 Dizziness and giddiness (principal); F41.9 Anxiety disorder, unspecified
CPT/HCPCS: 93005; 93010

== ENCOUNTER 2018-02-16 08:12 | Emergency (ER) | payer OTHER ==
[~2018-02-16] VITALS: Ht 170.2 cm; Wt 67.1 kg
[2018-02-16 08:14] VITALS: BP 154/95
--- NOTE | 2018-02-16 09:01 | ED AMS/SEIZURE/WEAK/DIZZY ---
History of Present Illness General Chief Complaint: General Adult Stated Complaint: DIZZY; "I FEEL LIKE IM GOING TO PASS OUT" Source: patient Exam Limitations: no limitations Vital Signs & Intake/Output Vital Signs & Intake/Output Vital Signs Date Time Temp Pulse Resp B/P B/P Pulse O2 O2 Flow FiO2 Mean Ox Delivery Rate 02/16 0814 96.7 107 15 154/95 98 Room Air Room Air Allergies Coded Allergies: No Known Allergies (01/24/18) Reconcile Medications Albuterol Sulfate (Proair Hfa) 90 MCG HFA.AER.AD 2 PUF INH Q4-6 PRN PRN dyspnea Ibuprofen 800 MG TABLET 1 TAB PO TID PRN pain Triage Note: PT TO ED FOR C/C OF CHEST PAINS X WEEKS. HAS BEEN SEEN HERE MULTIPLE TIMES FOR SAME. HAS ALSO SEEN WIRE TEMPERER. PT REPORTS THAT HE WAS SEEN OVERNIGHT, DROVE HOME BUT ENDED UP WAKING UP ON SIDE OF ROAD, "I DON'T REMEMBER PULLING OVER." PT VERY ANXIOUS IN TRIAGE. Triage Nurses Notes Reviewed? yes Onset: Abrupt Duration: hour(s):, constant Timing: recent history Injury Environment: home No Modifying Factors: none HPI: 22-year-old male with a history of anxiety seen here many times in the past comes into the emergency room with complaints of dizziness. Patient had blood work done recently within the last few days. He reports that he put the stephanie energy into his water this morning which was new. He's been expressing some dizziness and palpitations. Comes in for further evaluation. He was seen here earlier this morning. (Caden Amezquita) Past History Travel History Traveled to [place] past 21 day No Medical History Any Pertinent Medical History? 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 No (Caden Amezquita) Review of Systems Review of Systems Constitutional: Reports: no symptoms. EENTM: Reports: no symptoms. Respiratory: Reports: no symptoms. Cardiovascular: Reports: see HPI. GI: Reports: no symptoms. Genitourinary: Reports: no symptoms. Musculoskeletal: Reports: no symptoms. Skin: Reports: no symptoms. Neurological/Psychological: Reports: no symptoms. Hematologic/Endocrine: Reports: no symptoms. Immunologic/Allergic: Reports: no symptoms. All Other Systems: Reviewed and Negative (Caden Amezquita) Physical Exam Physical Exam General Appearance: well developed/nourished, alert, awake, anxious Head: atraumatic Eyes: Bilateral: normal appearance. Ears, Nose, Throat: normal ENT inspection, hearing grossly normal Neck: normal inspection Respiratory: no respiratory distress Cardiovascular: regular rate/rhythm Gastrointestinal: soft Back: normal inspection Extremities: normal range of motion Neurologic/Psych: awake, alert, oriented x 3, normal gait Skin: intact, normal color Core Measures ACS in differential dx? No CVA/TIA Diagnosis No Sepsis Present: No Sepsis Focused Exam Completed? No (Caden Amezquita) Progress Differential Diagnosis: arrythmia, alcohol intoxication, benign positional vertigo, CVA/stroke, dehydration, drug intoxication, electrolyte imbalance, hypoglycemia, pneumonia, postural hypotension Plan of Care: Orders Procedure Date/time Status EKG 02/16 0816 Active Initial ED EKG: normal sinus rhythm, rate (96), borderline t wave abnormalities (Caden Amezquita) Departure Departure Disposition: HOME OR SELF CARE Condition: Stable Clinical Impression Primary Impression: Dizziness Secondary Impressions: Anxiety Referrals: Kj LOVE,Antonio Kerr (PCP/Family) Additional Instructions: Follow-up with her primary care doctor. Return if any concerns worsening symptoms. Please go over all results of today's visit with your primary care doctor. Contact your primary care doctor to let them know you were here in the emergency room. There may be nonspecific findings which may not be related to your visit today here in the emergency room but may require further evaluation and chronic monitoring by your primary care doctor. If you had a laceration today the chance of foreign body always remains. You should follow-up with your primary care doctor for recheck in 3-5 days for a wound check. If you had an x-ray done there is a chance that a fracture could have been missed on initial read and you should follow-up with your primary care doctor for repeat x-rays if symptoms persist. If your blood pressure was elevated here in the emergency room please have rechecked by our primary care doctor within the next 48. If you were prescribed a narcotic here in the emergency room or any type of controlled substances you're not allowed to drive while taking this medication or operate any type of heavy machinery. Narcotics can make you feel lightheaded dizziness nausea and can cause constipation. You may need to picker and sorter load and unload a stool softener. Thank you for choosing [facility] emergency room. Please return to the emergency room immediately if you have any other concerns worsening of symptoms. Departure Forms: Customer Survey General Discharge Information (Caden Amezquita) PA/SMALL PRODUCTS I ASSEMBLER Co-Sign Statement Statement: ED Attending supervision documentation- [] I saw and evaluated the patient. I have also reviewed all the pertinent lab results and diagnostic results. I agree with the findings and the plan of care as documented in the PA's/SMALL PRODUCTS I ASSEMBLER's documentation. [x] I have reviewed the ED Record and agree with the PA's/SMALL PRODUCTS I ASSEMBLER's documentation. [] Additions or exceptions (if any) to the PAs/SMALL PRODUCTS I ASSEMBLER's note and plan are summarized below: [] (John King DO)
[2018-04-02] MEDS ORDERED: TESSALON PERLE100 M1 PO (21:02)
[2018-04-02] MEDS ORDERED: ZITHROMAX250 M2 PO (21:02)
== END 2018-02-16 09:09 ==
LOC: ERH 08:12
DX: R42 Dizziness and giddiness (principal); F41.9 Anxiety disorder, unspecified
CPT/HCPCS: 93005; 93010

== ENCOUNTER 2018-02-18 17:22 | Emergency (ER) | payer OTHER ==
[~2018-02-18] VITALS: Ht 170.2 cm; Wt 61.2 kg
--- NOTE | 2018-02-18 19:23 | RADIOLOGY REPORT ---
EXAMINATION: XR CHEST CLINICAL INFORMATION: Chest pain. Pneumothorax. COMPARISON: Chest radiography 02/13/2018. TECHNIQUE: 2 views of the chest were obtained. FINDINGS: No new significant abnormality is noted involving the heart, lungs, mediastinum, bony thorax or soft tissues. IMPRESSION: Unremarkable examination. No pneumothorax.
--- NOTE | 2018-02-18 20:03 | ED CARDIAC/CP/PALPITATIONS ---
History of Present Illness General Chief Complaint: General Adult Stated Complaint: CHEST SORE AFTER GYM Source: patient Exam Limitations: no limitations Vital Signs & Intake/Output Vital Signs & Intake/Output Vital Signs Date Time Temp Pulse Resp B/P B/P Pulse O2 O2 Flow FiO2 Mean Ox Delivery Rate 02/18 2027 97.0 68 18 118/66 97 Room Air 02/18 1725 97.2 66 15 139/74 98 Room Air Room Air Allergies Coded Allergies: No Known Allergies (02/18/18) Reconcile Medications Albuterol Sulfate (Proair Hfa) 90 MCG HFA.AER.AD 2 PUF INH Q4-6 PRN PRN dyspnea Ibuprofen 800 MG TABLET 1 TAB PO TID PRN pain Triage Note: PT TO ED FOR SHARP CHEST WALL PAIN S/P MMA TODAY. NO ACUTE DISTRESS NOTED IN TRIAGE. Triage Nurses Notes Reviewed? yes HPI: 22 yo M PMH anxiety presenting with chest pain, dizziness. Dizziness since last night, intermittent, described as lightheadedness, non-exertional, unclear precipitating and palliating factors. Intermittent chest pain since this afternoon following MMA practice, substernal location, sharp, intermittent lasting seconds, non-exertional, non-pleuritic, non-radiating. Denies falls or chest trauma during MMA sparring. Denies associated fevers, chills, palpitations , abdomianl Sx, urinary Sx, headache, neck pain or focal neurologic Sx, LE swelling or pain. (Randolph LOVE,Moe) Past History Travel History Traveled to [place] past 21 day No Medical History Any Pertinent Medical History? 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 Yes (Moe Dickson MD) Review of Systems Review of Systems Constitutional: Reports: see HPI. EENTM: Reports: no symptoms. Respiratory: Reports: see HPI. Cardiovascular: Reports: see HPI. GI: Reports: no symptoms. Genitourinary: Reports: no symptoms. Musculoskeletal: Reports: no symptoms. Skin: Reports: no symptoms. Neurological/Psychological: Reports: see HPI. Hematologic/Endocrine: Reports: no symptoms. Immunologic/Allergic: Reports: no symptoms. All Other Systems: Reviewed and Negative (Randolph LOVE,Moe) Physical Exam Physical Exam General Appearance: well developed/nourished, no apparent distress, alert, awake , anxious Head: atraumatic Eyes: Bilateral: PERRL, EOMI. 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 Yes CVA/TIA Diagnosis No Sepsis Present: No Sepsis Focused Exam Completed? No (Moe Dickson MD) Progress Differential Diagnosis: AMI, aortic dissection, atrial fibrillation, cholecystitis, CHF/pulm edema, costochondritis, hyperkalemia, hypovolemia, hyperthyroid, hyperventilation, intracranial hemorrhage, musculoskeletal pain, myocarditis, pancreatitis, pericarditis, pneumonia, pneumothorax, PSVT, pulmonary embolism, PUD/GERD, PVCs/PACs, respiratory failure, rib fracture, sepsis, unstable angina, V-fib/V-Tach, WPW syndrome Plan of Care: Orders Procedure Date/time Status EKG 02/18 1847 Active Physician MDM: 22 yo M presenting with chest pain, dizziness. VSS, physical exam unremarkable. DDx: PTX, pericarditis, PNA, low concern for ACS, PE (Wells 0, PERC 0), aortic or esophageal catastrophe. ECG sinus rhythm, JINA in anterior leads, unchanged from prior, non-ischemic. CXR without focal consolidation or airspace disease. Bedside ECHO without abnormalitiy. Patient reassred by unremarkable ED workup, chest pain resolved spontaneously in ED without intervention. Discharged with return precautions. Initial ED EKG: NSR, nonspecific ST T wave chg (Moe Dickson MD) Departure Departure Disposition: HOME OR SELF CARE Condition: Stable Clinical Impression Primary Impression: Chest pain Referrals: Kj LOVE,Antonio Kerr (PCP/Family) Additional Instructions: Follow up with your primary care physician in the next 2-3 days. Return to the ED for any new, worsening, or concerning symptoms. Departure Forms: Customer Survey General Discharge Information (Randolph LOVE,Moe) PA/CONTRACT FORESTER Co-Sign Statement Statement: ED Attending supervision documentation- [] I saw and evaluated the patient. I have also reviewed all the pertinent lab results and diagnostic results. I agree with the findings and the plan of care as documented in the PA's/CONTRACT FORESTER's documentation. [x] I have reviewed the ED Record and agree with the PA's/CONTRACT FORESTER's documentation. [] Additions or exceptions (if any) to the PAs/CONTRACT FORESTER's note and plan are summarized below: [] (Sera LOVE,William Jeff) Critical Care Note Critical Care Note Critical Care Time: non-applicable (Randolph LOVE,Moe)
[2018-02-18 20:27] VITALS: BP 118/66
[2018-04-02] MEDS ORDERED: ZITHROMAX250 M2 PO (21:02)
[2018-04-02] MEDS ORDERED: TESSALON PERLE100 M1 PO (21:02)
== END 2018-02-18 20:29 ==
LOC: ERH 17:22
DX: R07.89 Other chest pain (principal)
CPT/HCPCS: 71046; 93005; 93010

== ENCOUNTER 2018-02-20 22:00 | Emergency (ER) | payer OTHER ==
[~2018-02-20] VITALS: Ht 170.2 cm; Wt 63.5 kg
[2018-02-20 22:06] VITALS: BP 133/79
--- NOTE | 2018-02-20 22:41 | ED GENERAL ADULT ---
History of Present Illness General Chief Complaint: Upper Extremity Injury Stated Complaint: PAIN IN LEFT ARM Source: patient Exam Limitations: no limitations Vital Signs & Intake/Output Vital Signs & Intake/Output Vital Signs Date Time Temp Pulse Resp B/P B/P Pulse O2 O2 Flow FiO2 Mean Ox Delivery Rate 02/20 2255 Room Air 02/206 97.7 96 16 133/79 97 Room Air Allergies Coded Allergies: No Known Allergies (02/18/18) Reconcile Medications Albuterol Sulfate (Proair Hfa) 90 MCG HFA.AER.AD 2 PUF INH Q4-6 PRN PRN dyspnea Ibuprofen 800 MG TABLET 1 TAB PO TID PRN pain Triage Note: REPORTS LEFT UPPER ARM PAIN S/P WRESTLING MATCH. POSITIVE CMS. Triage Nurses Notes Reviewed? yes Onset: Gradual Duration: hour(s): Timing: constant HPI: 22 y/o male with h/o anxiety and panic attacks presenting with gradual onset of left bicep pain s/p wrestling match. Also reports weight lifting today with bicep workouts. Has not tried anything for pain relief. Denies numbness or paresthesias. (Kaley Hernandez) Past History Travel History Traveled to [place] past 21 day No Medical History Any Pertinent Medical History? 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 No (Kaley Hernandez) Review of Systems Review of Systems Constitutional: Reports: no symptoms. EENTM: Reports: no symptoms. Respiratory: Reports: no symptoms. Cardiovascular: Reports: no symptoms. GI: Reports: no symptoms. Genitourinary: Reports: no symptoms. Musculoskeletal: Reports: see HPI. Skin: Reports: no symptoms. Neurological/Psychological: Reports: no symptoms. Hematologic/Endocrine: Reports: no symptoms. Immunologic/Allergic: Reports: no symptoms. (Kaley Hernandez) Physical Exam Physical Exam General Appearance: well developed/nourished, no apparent distress, alert, awake , comfortable Head: atraumatic, normal appearance Eyes: Bilateral: normal appearance. Neck: normal inspection Respiratory: normal breath sounds, lungs clear Cardiovascular: regular rate/rhythm Gastrointestinal: soft, non-tender Back: normal inspection Extremities: normal inspection, Left arm: No ecchymosis, erythema, edema, or deformity. TTP over bicep muscle. Unrestricted ROM at shoulder and elbow. Sensation intact. Motor strength 5/5. Radial pulse 2+. Neurologic/Psych: awake, alert, oriented x 3, normal gait, normal mood/affect Skin: intact, normal color, warm/dry Core Measures ACS in differential dx? No CVA/TIA Diagnosis: No Sepsis Present: No Sepsis Focused Exam Completed? No (Kaley Hernandez) Progress Differential Diagnoses I considered the following diagnoses in my evaluation of the patient: [Likely MSK strain, low concern for fx or dislocation ] Plan of Care: Offered pain meds, but declining. Likely MSK strain. Counseled on supportive care and strict return precautions. Initial ED EKG: none (Kaley Hernandez) Departure Departure Disposition: HOME OR SELF CARE Condition: Stable Clinical Impression Primary Impression: Left arm pain Referrals: Kj LOVE,Antonio Kerr (PCP/Family) Additional Instructions: Use ibuprofen as needed for pain. Follow up with your primary care provider for re-evaluation. Return to the emergency department for any new or worsening symptoms. Departure Forms: Customer Survey General Discharge Information (Kaley Hernandez) PA/SALES AND TRAINING SPECIALIST Co-Sign Statement Statement: ED Attending supervision documentation- [] I saw and evaluated the patient. I have also reviewed all the pertinent lab results and diagnostic results. I agree with the findings and the plan of care as documented in the PA's/SALES AND TRAINING SPECIALIST's documentation. [X] I have reviewed the ED Record and agree with the PA's/SALES AND TRAINING SPECIALIST's documentation. [] Additions or exceptions (if any) to the PAs/SALES AND TRAINING SPECIALIST's note and plan are summarized below: [] (Cruz LOVE,Papo Gee) Critical Care Note Critical Care Note Critical Care Time: non-applicable (Kaley Hernandez)
[2018-04-02] MEDS ORDERED: TESSALON PERLE100 M1 PO (21:02)
[2018-04-02] MEDS ORDERED: ZITHROMAX250 M2 PO (21:02)
== END 2018-02-20 23:06 ==
LOC: ERH 22:00
DX: M79.602 Pain in left arm (principal)

== ENCOUNTER 2018-02-23 18:25 | Emergency (ER) | payer OTHER ==
[~2018-02-23] VITALS: Ht 170.2 cm; Wt 63.5 kg
[2018-02-23 18:27] VITALS: BP 132/85
== END 2018-02-23 19:35 | disposition admitted as inpatient to this hospital (09) ==
LOC: ERH 18:25
DX: R42 Dizziness and giddiness (principal)

== ENCOUNTER 2018-03-12 20:53 | Emergency (ER) | payer OTHER ==
[~2018-03-12] VITALS: Ht 170.2 cm; Wt 68.0 kg
[2018-03-12 22:03] VITALS: BP 129/81
--- NOTE | 2018-03-12 23:41 | ED GENERAL ADULT ---
History of Present Illness General Chief Complaint: General Adult Stated Complaint: "I FEEL REALLY CONCUSSED AND HAVE ANXIETY" Source: patient Exam Limitations: no limitations Vital Signs & Intake/Output Vital Signs & Intake/Output Vital Signs Date Time Temp Pulse Resp B/P B/P Pulse O2 O2 Flow FiO2 Mean Ox Delivery Rate 03/12 2203 97.2 69 18 129/81 99 Room Air Allergies Coded Allergies: No Known Allergies (02/23/18) Reconcile Medications Albuterol Sulfate (Proair Hfa) 90 MCG HFA.AER.AD 2 PUF INH Q4-6 PRN PRN dyspnea Ibuprofen 800 MG TABLET 1 TAB PO TID PRN pain Triage Note: PT TO ED C/O ANXIETY "AND FEELING REALLY CONCUSSED" FOR A FEW DAYS AND CHEST PAIN "FOR 3-4 HOURS" BUT I THINK IT'S MY ANXIETY" Triage Nurses Notes Reviewed? yes Onset: Gradual Duration: day(s): Timing: recent history Injury Environment: home Severity: mild Modifying Factors: Improves With: rest. Associated Symptoms: headache, anxiety HPI: 22 yo gentleman, h/o concussions and anxiety, presents with headache and increased anxiety. He notes that he had a mixed martial arts fight over the weekend. Afterwards, he felt his headaches return. He also feels increased anxiety. "Someone who was 21 years old dropped ... How do I know that won't happen to me." He has had negative stress tests, ekg's, cardiac echos per his report in recent years. He is otherwise well. Past History Travel History Traveled to [place] past 21 day No Medical History Any Pertinent Medical History? 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 No Review of Systems Review of Systems Constitutional: Reports: no symptoms. EENTM: Reports: no symptoms. Respiratory: Reports: no symptoms. Cardiovascular: Reports: no symptoms. GI: Reports: no symptoms. Genitourinary: Reports: no symptoms. Musculoskeletal: Reports: no symptoms. Skin: Reports: no symptoms. Neurological/Psychological: Reports: no symptoms. Hematologic/Endocrine: Reports: no symptoms. Immunologic/Allergic: Reports: no symptoms. All Other Systems: Reviewed and Negative Physical Exam Physical Exam General Appearance: well developed/nourished, no apparent distress, alert, comfortable Comments: Review of Systems - except as otherwise noted in HPI Physical Exam Physical Exam General Appearance: well developed/nourished, no apparent distress Head: atraumatic, normal appearance Eyes: Bilateral: normal appearance. Ears, Nose, Throat: normal pharynx, normal ENT inspection Neck: normal inspection, supple, full range of motion Respiratory: normal breath sounds, chest non-tender, no respiratory distress, quiet respiration, lungs clear Cardiovascular: regular rate/rhythm Gastrointestinal: normal bowel sounds, soft, non-tender, no organomegaly Back: normal inspection, normal range of motion Extremities: normal inspection, normal capillary refill, normal range of motion, no edema Neurologic/Psych: no motor/sensory deficits, awake, alert, oriented x 3 Skin: intact, normal color, warm/dry Core Measures ACS in differential dx? No CVA/TIA Diagnosis: No Sepsis Present: No Sepsis Focused Exam Completed? No Progress Differential Diagnoses I considered the following diagnoses in my evaluation of the patient: anxiety vs concussion vs other. Plan of Care: discussed at length... pt safe for discharge.. .he does not wish to see crises team... close follow up advised. Initial ED EKG: none Departure Departure Disposition: HOME OR SELF CARE Condition: Stable Clinical Impression Primary Impression: Concussion Secondary Impressions: Anxiety Referrals: Kj LOVE,Antonio Kerr (PCP/Family) Departure Forms: Customer Survey General Discharge Information Critical Care Note Critical Care Note Critical Care Time: non-applicable
== END 2018-03-13 00:06 ==
LOC: ERH 20:53
DX: S06.0X0A Concussion without loss of consciousness, initial encounter (principal); F41.9 Anxiety disorder, unspecified; X58.XXXA Exposure to other specified factors, initial encounter; Y93.75 Activity, martial arts; Y92.9 Unspecified place or not applicable

== ENCOUNTER 2018-03-13 23:45 | Emergency (ER) | payer OTHER ==
[2018-03-14] VITALS: BP 118/60
--- NOTE | 2018-03-14 00:08 | ED GENERAL ADULT ---
History of Present Illness General Chief Complaint: General Adult Stated Complaint: "CHEST PAIN" AND MULTIPLE COMPLAINTS Source: patient Exam Limitations: no limitations Vital Signs & Intake/Output Vital Signs & Intake/Output Vital Signs Date Time Temp Pulse Resp B/P B/P Pulse O2 O2 Flow FiO2 Mean Ox Delivery Rate 03/14 0000 98.3 85 18 118/60 100 Room Air 03/14 0000 100 Room Air Allergies Coded Allergies: No Known Allergies (02/23/18) Reconcile Medications Albuterol Sulfate (Proair Hfa) 90 MCG HFA.AER.AD 2 PUF INH Q4-6 PRN PRN dyspnea Ibuprofen 800 MG TABLET 1 TAB PO TID PRN pain Triage Nurses Notes Reviewed? yes Onset: Gradual Duration: week(s):, waxing and waning Timing: recent history Injury Environment: home Severity: mild, moderate Associated Symptoms: increased anxiety HPI: 22-year-old gentleman history of postconcussive syndrome, generalized anxiety disorder, presents with heightened anxiety. He states that today he drank 2 Coca-Cola sodas and a large iced coffee. "This is happened to me before. Whenever I have extra caffeine I get really anxious and I can't sleep." He has no chest pain shortness of breath diaphoresis. He states that his headaches are about the same as they have been over the past few weeks. Of note, he had a mixed martial arts competition 3 days ago where he was struck in the head several times. He states, "that's normal for me." He denies suicidality homicidality depression alcohol or drug use. He is otherwise well and has no other concerns. Past History Travel History Traveled to [place] past 21 day No Medical History Any Pertinent Medical History? 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 No Review of Systems Review of Systems Constitutional: Reports: no symptoms. EENTM: Reports: no symptoms. Respiratory: Reports: no symptoms. Cardiovascular: Reports: no symptoms. GI: Reports: no symptoms. Genitourinary: Reports: no symptoms. Musculoskeletal: Reports: no symptoms. Skin: Reports: no symptoms. Neurological/Psychological: Reports: no symptoms. Hematologic/Endocrine: Reports: no symptoms. Immunologic/Allergic: Reports: no symptoms. All Other Systems: Reviewed and Negative Physical Exam Physical Exam General Appearance: well developed/nourished, no apparent distress Comments: Review of Systems - except as otherwise noted in HPI . All Other Systems: Reviewed and Negative Physical Exam Physical Exam General Appearance: well developed/nourished, no apparent distress Head: atraumatic, normal appearance Eyes: Bilateral: normal appearance. Ears, Nose, Throat: normal pharynx, normal ENT inspection Neck: normal inspection, supple, full range of motion Respiratory: normal breath sounds, chest non-tender, no respiratory distress, quiet respiration, lungs clear Cardiovascular: regular rate/rhythm Gastrointestinal: normal bowel sounds, soft, non-tender, no organomegaly Back: normal inspection, normal range of motion Extremities: normal inspection, normal capillary refill, normal range of motion, no edema Neurologic/Psych: no motor/sensory deficits, awake, alert, oriented x 3 Skin: intact, normal color, warm/dry Core Measures ACS in differential dx? No CVA/TIA Diagnosis: No Sepsis Present: No Sepsis Focused Exam Completed? No Progress Differential Diagnoses I considered the following diagnoses in my evaluation of the patient: post concussion syndrome, chest pain vs other. Plan of Care: Orders Procedure Date/time Status EKG 03/14 13 Active Initial ED EKG: nsr, no change from prior, early re-polarization pattern, no change from prior Departure Departure Disposition: HOME OR SELF CARE Condition: Stable Clinical Impression Primary Impression: Postconcussive syndrome Secondary Impressions: Anxiety Referrals: Kj LOVE,Antonio Kerr (PCP/Family) Departure Forms: Customer Survey General Discharge Information Comments 03/14/2018, 1:31 AM: Discussed at great length. Patient is reassured. I encouraged him to follow-up with care to consider counseling. He declines. Close follow-up advised Critical Care Note Critical Care Note Critical Care Time: non-applicable
== END 2018-03-14 01:15 ==
LOC: ERH 23:45
DX: F07.81 Postconcussional syndrome (principal); F41.9 Anxiety disorder, unspecified
CPT/HCPCS: 93005; 93010

== ENCOUNTER 2018-03-20 20:45 | Emergency (ER) | payer OTHER ==
[~2018-03-20] VITALS: Ht 170.2 cm; Wt 65.8 kg
[2018-03-20 21:10] VITALS: BP 132/76
--- NOTE | 2018-03-20 23:08 | ED CARDIAC/CP/PALPITATIONS ---
History of Present Illness General Chief Complaint: Chest Pain Stated Complaint: CP, DIZZY Source: patient Exam Limitations: no limitations Vital Signs & Intake/Output Vital Signs & Intake/Output Vital Signs Date Time Temp Pulse Resp B/P B/P Pulse O2 O2 Flow FiO2 Mean Ox Delivery Rate 03/20 2110 98.6 96 16 132/76 76 ED Intake and Output 03/21 0000 06 1200 Intake Total 0 Output Total Balance 0 Intake, Oral 0 Patient 145 lb Weight Weight Reported by Patient Measurement Method Allergies Coded Allergies: No Known Allergies (02/23/18) Reconcile Medications No Known Home Medications Triage Note: PT PRESENTS TO THE ER C/O CHEST PAIN AND ANXIETY. PT STATES THAT IT STARTED AT 1830 AND IS GETTING WORSE..PT STATES THAT IT IS PROBABLY ANXIETY. Triage Nurses Notes Reviewed? 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 Patient has been evaluated on multiple occasions to the emergency room and multiple cardiology evaluations of stress test and echocardiograms with unremarkable findings. Patient currently denies any symptoms (Paulino Garza) Past History Travel History Traveled to [place] past 21 day No Medical History Any Pertinent Medical History? 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 No (Paulino Garza) Review of Systems Review of Systems Constitutional: Reports: no symptoms. EENTM: Reports: no symptoms. Respiratory: Reports: see HPI. Cardiovascular: Reports: see HPI. GI: Reports: no symptoms. Genitourinary: Reports: no symptoms. Musculoskeletal: Reports: no symptoms. Skin: Reports: no symptoms. Neurological/Psychological: Reports: no symptoms. Hematologic/Endocrine: Reports: no symptoms. Immunologic/Allergic: Reports: no symptoms. All Other Systems: Reviewed and Negative (Paulino Garza) Physical Exam Physical Exam General Appearance: no apparent distress, alert, comfortable Head: atraumatic Eyes: Bilateral: normal appearance. Ears, Nose, Throat: normal ENT inspection, hearing grossly normal Neck: normal inspection Respiratory: normal breath sounds, chest non-tender Cardiovascular: regular rate/rhythm Extremities: normal inspection Skin: intact, normal color Core Measures ACS in differential dx? No CVA/TIA Diagnosis No Sepsis Present: No Sepsis Focused Exam Completed? No (Paulino Garza) Progress Differential Diagnosis: atrial fibrillation, cholecystitis, CHF/pulm edema, costochondritis, hyperkalemia, hypovolemia, hyperthyroid, hyperventilation, intracranial hemorrhage, musculoskeletal pain, myocarditis, pancreatitis, pericarditis, pneumonia, pneumothorax, PSVT, pulmonary embolism, PUD/GERD, PVCs/ PACs, respiratory failure, rib fracture, sepsis, unstable angina, V-fib/V-Tach, WPW syndrome Plan of Care: Orders Procedure Date/time Status EKG 03/20 2046 Active Patient had unremarkable EKG normal sinus rhythm patient is resting comfortably at bedside playing on his phone patient was strongly advised to discontinue temporarily his training sessions as per old records this usually IS HIS causation of his symptoms Initial ED EKG: normal intervals, normal p-waves, 78 BPM,NSR (Paulino Garza) Departure Departure Disposition: HOME OR SELF CARE Condition: Stable Clinical Impression Primary Impression: Dizziness Referrals: Kj LOVE,Antonio Kerr (PCP/Family) Additional Instructions: As discussed please follow-up with your doctor this week if symptoms do not improve, please discontinue participating in the TRAINIGN sessions FOR ONE WEEK TO SEE IF SYMPTOMS IMPROVE. if symptoms worsen return to emergency room Departure Forms: Customer Survey General Discharge Information Prescriptions: Current Visit Scripts No Known Home Medications (Paulino Garza) PA/HOSPITALITY HOUSE SUPERVISOR Co-Sign Statement Statement: ED Attending supervision documentation- [] I saw and evaluated the patient. I have also reviewed all the pertinent lab results and diagnostic results. I agree with the findings and the plan of care as documented in the PA's/HOSPITALITY HOUSE SUPERVISOR's documentation. [X] I have reviewed the ED Record and agree with the PA's/HOSPITALITY HOUSE SUPERVISOR's documentation. [] Additions or exceptions (if any) to the PAs/HOSPITALITY HOUSE SUPERVISOR's note and plan are summarized below: [] (Cruz LOVE,Papo Gee) Critical Care Note Critical Care Note Critical Care Time: non-applicable (Paulino Garza)
== END 2018-03-20 23:48 ==
LOC: ERH 20:45
DX: R42 Dizziness and giddiness (principal); R07.9 Chest pain, unspecified
CPT/HCPCS: 93005; 93010

== ENCOUNTER 2018-03-21 16:53 | Emergency (ER) | payer OTHER ==
[2018-03-21 17:02] VITALS: BP 138/82
== END 2018-03-21 18:56 | disposition admitted as inpatient to this hospital (09) ==
LOC: ERH 16:53
DX: R07.9 Chest pain, unspecified (principal)
CPT/HCPCS: 93005; 93010; 99281

== ENCOUNTER 2018-05-02 18:42 | Emergency (ER) | payer OTHER ==
[2018-05-02 18:56] VITALS: BP 130/76
== END 2018-05-02 19:12 | disposition admitted as inpatient to this hospital (09) ==
LOC: ERH 18:42
DX: R07.9 Chest pain, unspecified (principal); R06.02 Shortness of breath
CPT/HCPCS: 93005; 93010; 99281

== ENCOUNTER 2018-05-10 00:28 | Emergency (ER) | payer OTHER ==
[~2018-05-10] VITALS: Ht 172.7 cm; Wt 63.6 kg
--- NOTE | 2018-05-10 00:38 | ED GENERAL ADULT ---
History of Present Illness General Chief Complaint: Chest Pain Stated Complaint: CHEST PAIN Source: patient Exam Limitations: no limitations Vital Signs & Intake/Output Vital Signs & Intake/Output Vital Signs Date Time Temp Pulse Resp B/P B/P Pulse O2 O2 Flow FiO2 Mean Ox Delivery Rate 05/10 0040 97 Room Air 05/10 0039 98.7 80 18 163/92 98 Room Air Allergies Coded Allergies: No Known Allergies (04/10/18) Reconcile Medications No Known Home Medications Triage Nurses Notes Reviewed? yes Onset: Gradual Duration: hour(s): Timing: recent history Injury Environment: home Severity: mild Modifying Factors: Improves With: rest. Associated Symptoms: anxiety HPI: 22 yo mackenzie h/o anxiety disorder presents with anxiety and chest pain. 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 I knew it was going to work me up... I started getting stressed... I went home... started the same feelings I always do, and came here." He notes that he feels better presently, without HI, Si, Hallucinations. He denies drug/etoh abuse. He is otherwise well. Past History Travel History Traveled to [place] past 21 day No Medical History Any Pertinent Medical History? 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 No Review of Systems Review of Systems Constitutional: Denies: see HPI. Physical Exam Physical Exam General Appearance: see below Comments: Review of Systems - except as otherwise noted in HPI Review of Systems Constitutional:no symptoms. EENTM:no symptoms. Respiratory:no symptoms. Cardiovascular:no symptoms. GI:no symptoms. Genitourinary:no symptoms. Musculoskeletal:no symptoms. Skin:no symptoms. Neurological/Psychological:no symptoms. Hematologic/Endocrine:no symptoms. Immunologic/Allergic:no symptoms. All Other Systems: Reviewed and Negative Physical Exam Physical Exam General Appearance: well developed/nourished, no apparent distress Head: atraumatic, normal appearance Eyes: Bilateral: normal appearance. Ears, Nose, Throat: normal pharynx, normal ENT inspection Neck: normal inspection, supple, full range of motion Respiratory: normal breath sounds, chest non-tender, no respiratory distress, quiet respiration, lungs clear Cardiovascular: regular rate/rhythm Gastrointestinal: normal bowel sounds, soft, non-tender, no organomegaly Back: normal inspection, normal range of motion Extremities: normal inspection, normal capillary refill, normal range of motion, no edema Neurologic/Psych: no motor/sensory deficits, awake, alert, oriented x 3 Skin: intact, normal color, warm/dry Core Measures ACS in differential dx? No CVA/TIA Diagnosis: No Sepsis Present: No Sepsis Focused Exam Completed? No Progress Differential Diagnoses I considered the following diagnoses in my evaluation of the patient: anxiety vs costochondritis vs other. Plan of Care: Orders Procedure Date/time Status EKG 05/10 30 Active Initial ED EKG: normal axis, normal intervals, normal p-waves, normal QRS complex, normal sinus rhythm Departure Departure Disposition: HOME OR SELF CARE Condition: Stable Clinical Impression Primary Impression: Chest pain Secondary Impressions: Anxiety Referrals: Kj LOVE,Antonio Kerr (PCP/Family) Departure Forms: Customer Survey General Discharge Information Prescriptions: Current Visit Scripts No Known Home Medications Comments discussed at length... pt with prior negative workup... feeling well now, benign ekg... safe for discharge... close follow up advised. Critical Care Note Critical Care Note Critical Care Time: non-applicable
[2018-05-10 00:39] VITALS: BP 163/92
== END 2018-05-10 01:38 ==
LOC: ERH 00:28
DX: R07.9 Chest pain, unspecified (principal); F41.9 Anxiety disorder, unspecified
CPT/HCPCS: 93005; 93010

== ENCOUNTER 2018-05-29 02:24 | Emergency (ER) | payer OTHER ==
[~2018-05-29] VITALS: Ht 172.7 cm; Wt 68.0 kg
[2018-05-29 02:30] VITALS: BP 138/88
--- NOTE | 2018-05-29 02:42 | ED GENERAL ADULT ---
History of Present Illness General Chief Complaint: Chest Pain Stated Complaint: CHEST PAIN, DIZZINESS Source: patient Exam Limitations: no limitations Vital Signs & Intake/Output Vital Signs & Intake/Output Vital Signs Date Time Temp Pulse Resp B/P B/P Pulse O2 O2 Flow FiO2 Mean Ox Delivery Rate 05/29 0324 98 Room Air 05/29 0230 98.9 85 18 138/88 97 Room Air Allergies Coded Allergies: No Known Allergies (04/10/18) Reconcile Medications No Known Home Medications Triage Note: PT TO ED C/O CENTER CHEST PAIN THAT STARTED WHILE HE WAS LYING IN BED A COUPLE OF HOURS AGO. DENIES ANXIETY "BUT IT COULD BE THAT" FEELS SOB. VSS Triage Nurses Notes Reviewed? yes Onset: Abrupt Duration: hour(s): Timing: recent history HPI: 05/29/18 22-year-old male presents to the emergency department for palpitations and chest pain. He says he had a sudden onset of retrosternal chest pain similar to episodes in the past. He's had anxiety reactions. He says he's got an upcoming MMA fight scheduled and he has been concerned about this. He denies any shortness of breath to me, denies fever fever or cough. Past History Travel History Traveled to [place] past 21 day No Medical History Any Pertinent Medical History? 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 No Review of Systems Review of Systems Constitutional: Denies: fever. EENTM: Denies: visual changes. Respiratory: Reports: see HPI. Cardiovascular: Reports: see HPI. GI: Denies: abdominal pain. Genitourinary: Reports: no symptoms. Musculoskeletal: Reports: no symptoms. Skin: Reports: no symptoms. Neurological/Psychological: Reports: anxiety. Hematologic/Endocrine: Reports: no symptoms. Immunologic/Allergic: Reports: no symptoms. Physical Exam Physical Exam General Appearance: well developed/nourished, alert, awake, anxious, mild distress Head: atraumatic, normal appearance Eyes: Bilateral: normal appearance, PERRL, EOMI. Ears, Nose, Throat: normal pharynx, normal ENT inspection Neck: normal inspection, supple, full range of motion Respiratory: normal breath sounds, chest non-tender, no respiratory distress Cardiovascular: regular rate/rhythm Peripheral Pulses: 4+ radial (R), 4+ radial (L) Gastrointestinal: soft, non-tender Back: normal range of motion Extremities: no edema Neurologic/Psych: no motor/sensory deficits, awake, alert, oriented x 3 Skin: intact, normal color, warm/dry Core Measures ACS in differential dx? No CVA/TIA Diagnosis: No Sepsis Present: No Sepsis Focused Exam Completed? No Progress Differential Diagnoses I considered the following diagnoses in my evaluation of the patient: [ Costochondritis, pulmonary embolism, pneumothorax, palpitations, anxiety attack, panic attack, dysrhythmia] Plan of Care: Orders Procedure Date/time Status EKG 05/29 228 Active Initial ED EKG: NSR Prior EKG: unchanged Departure Departure Disposition: HOME OR SELF CARE Condition: Stable Clinical Impression Primary Impression: Chest pain Secondary Impressions: Anxiety Referrals: Kj LOVE,Antonio Kerr (PCP/Family) Departure Forms: Customer Survey General Discharge Information Prescriptions: Current Visit Scripts No Known Home Medications Comments The patient's EKG is unchanged. His symptoms were consistent with prior anxiety attack. There were completely relieved when he was informed that his EKG was unchanged. Critical Care Note Critical Care Note Critical Care Time: non-applicable
== END 2018-05-29 03:25 ==
LOC: ERH 02:24
DX: R07.9 Chest pain, unspecified (principal); F41.9 Anxiety disorder, unspecified; R42 Dizziness and giddiness
CPT/HCPCS: 93005; 93010

== ENCOUNTER 2018-06-15 02:42 | Emergency (ER) | payer OTHER ==
--- NOTE | 2018-06-15 02:57 | ED GENERAL ADULT ---
History of Present Illness General Chief Complaint: General Adult Stated Complaint: PT STATES SAME THING ALWAYS ANXIETY Source: patient Exam Limitations: no limitations Vital Signs & Intake/Output Vital Signs & Intake/Output Vital Signs Date Time Temp Pulse Resp B/P B/P Pulse O2 O2 Flow FiO2 Mean Ox Delivery Rate 06/15 308 98 Room Air Room Air 06/15 307 98.0 76 16 127/78 98 Room Air Room Air Allergies Coded Allergies: No Known Allergies (04/10/18) Reconcile Medications No Known Home Medications Triage Nurses Notes Reviewed? yes Onset: Gradual Duration: hour(s): Timing: recent history Injury Environment: home Severity: mild Modifying Factors: Improves With: rest. Associated Symptoms: "ANXIETY" HPI: 22 yo gentleman, h/o anxiety and concussions, presents with chest pain upon awakening, lasted several minutes, and then has resolved upon arrival to the ED. He shares that this is similar to his prior episodes. He is otherwise well. 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 He is otherwise well. Past History Travel History Traveled to [place] past 21 day No Medical History Any Pertinent Medical History? 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 No Review of Systems Review of Systems Constitutional: Reports: no symptoms. EENTM: Reports: no symptoms. Respiratory: Reports: no symptoms. Cardiovascular: Reports: no symptoms. GI: Reports: no symptoms. Genitourinary: Reports: no symptoms. Musculoskeletal: Reports: no symptoms. Skin: Reports: no symptoms. Neurological/Psychological: Reports: no symptoms. Hematologic/Endocrine: Reports: no symptoms. Immunologic/Allergic: Reports: no symptoms. All Other Systems: Reviewed and Negative Physical Exam Physical Exam General Appearance: well developed/nourished, no apparent distress Head: atraumatic, normal appearance Eyes: Bilateral: normal appearance. Ears, Nose, Throat: normal pharynx, normal ENT inspection Neck: normal inspection, supple, full range of motion Respiratory: normal breath sounds, chest non-tender, no respiratory distress, quiet respiration, lungs clear Cardiovascular: regular rate/rhythm Gastrointestinal: normal bowel sounds, soft, non-tender, no organomegaly Back: normal inspection, normal range of motion Extremities: normal inspection, normal capillary refill, normal range of motion, no edema Neurologic/Psych: no motor/sensory deficits, awake, alert, oriented x 3 Skin: intact, normal color, warm/dry Core Measures ACS in differential dx? No CVA/TIA Diagnosis: No Sepsis Present: No Sepsis Focused Exam Completed? No Progress Differential Diagnoses I considered the following diagnoses in my evaluation of the patient: anxiety vs other. Plan of Care: Orders Procedure Date/time Status EKG 06/15 0305 Active Initial ED EKG: early repolarization, no change from prior. Departure Departure Disposition: HOME OR SELF CARE Condition: Stable Clinical Impression Primary Impression: Anxiety Referrals: Kj LOVE,Antonio Kerr (PCP/Family) Departure Forms: Customer Survey General Discharge Information Prescriptions: Current Visit Scripts No Known Home Medications Comments 3:42am... discussed at great length... ekg benign, story similar to prior episodes. multiple workups have been unrevealing. he is safe for discharge. close follow up advised. Critical Care Note Critical Care Note Critical Care Time: non-applicable
[2018-06-15 03:07] VITALS: BP 127/78
== END 2018-06-15 03:30 ==
LOC: ERH 02:42
DX: F41.9 Anxiety disorder, unspecified (principal); R07.9 Chest pain, unspecified
CPT/HCPCS: 93005; 93010

== ENCOUNTER 2018-06-18 02:31 | Emergency (ER) | payer OTHER ==
[~2018-06-18] VITALS: Ht 172.7 cm; Wt 63.5 kg
[2018-06-18 05:00] VITALS: BP 136/70
--- NOTE | 2018-06-18 05:06 | ED CARDIAC/CP/PALPITATIONS ---
History of Present Illness General Chief Complaint: General Adult Stated Complaint: ANXIETY Source: patient Exam Limitations: no limitations Vital Signs & Intake/Output Vital Signs & Intake/Output Vital Signs Date Time Temp Pulse Resp B/P B/P Pulse O2 O2 Flow FiO2 Mean Ox Delivery Rate 06/18 0305 98.3 68 18 138/79 97 Room Air Allergies Coded Allergies: No Known Allergies (06/20/18) Reconcile Medications No Known Home Medications Triage Note: PT TO ED C/O ANXIETY FOR AN HOUR. "I'M HAVING TROUBLE BREATHING AND I'M HAVING CHEST PAIN" Triage Nurses Notes Reviewed? yes Onset: Abrupt Duration: hour(s): Timing: recent history Location: substernal Radiation: no radiation Activities at Onset: rest HPI: Patient presents for evaluation of substernal chest pain that began shortly before arrival. Patient has had multiple episodes of similar pain in the past and states this is a fairly typical episode for him. He is concerned that he is having a problem with his heart. Past History Travel History Traveled to [place] past 21 day No Medical History Any Pertinent Medical History? 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 No Review of Systems Review of Systems Constitutional: Reports: no symptoms. EENTM: Reports: no symptoms. Respiratory: Reports: no symptoms. Cardiovascular: Reports: chest pain. GI: Reports: no symptoms. Genitourinary: Reports: no symptoms. Musculoskeletal: Reports: no symptoms. Skin: Reports: no symptoms. Neurological/Psychological: Reports: no symptoms. Hematologic/Endocrine: Reports: no symptoms. Immunologic/Allergic: Reports: no symptoms. All Other Systems: Reviewed and Negative Physical Exam Physical Exam Cardiovascular: SEE BELOW Comments: Gen.: Well-nourished, well-developed, no acute respiratory distress. Head: Normocephalic, left infraorbital ecchymoses Eyes: Normal inspection bilaterally Ears: Normal inspection bilaterally Nose: Normal inspection Throat/mouth : Moist mucosa Neck: Supple, full range of motion, no goiter Heart: Regular rate and rhythm, no murmurs rubs or gallops Lungs: Clear to auscultation bilaterally with normal air entry Chest: Nontender Back: Normal range of motion Abdomen: Soft, nontender, nondistended, normal bowel sounds Extremities: Normal range of motion grossly, equal radial pulses, no cyanosis clubbing or edema Neurologic: Cranial nerves grossly intact, speech is clear Skin: warm and dry Psychiatric: Calm, cooperative, no apparent delusions or hallucinations Core Measures ACS in differential dx? No CVA/TIA Diagnosis No Sepsis Present: No Sepsis Focused Exam Completed? No Progress Differential Diagnosis: AMI, hyperventilation, musculoskeletal pain, unstable angina, anxiety Plan of Care: Orders Procedure Date/time Status EKG 06/18 308 Active Initial ED EKG: NSR, no ST T wave changes Prior EKG: unchanged Comments: Patient declined further evaluation in the emergency department aside from the EKG. Departure Departure Disposition: HOME OR SELF CARE Condition: Stable Clinical Impression Primary Impression: Chest pain Referrals: Kj LOVE,Antonio Kerr (PCP/Family) Additional Instructions: Follow-up with your primary care physician for reevaluation this week. Return if any concerns or sudden worsening. Departure Forms: Customer Survey General Discharge Information Prescriptions: Current Visit Scripts No Known Home Medications Critical Care Note Critical Care Note Critical Care Time: non-applicable
== END 2018-06-18 05:11 ==
LOC: ERH 02:31
DX: R07.89 Other chest pain (principal); F41.9 Anxiety disorder, unspecified; F41.0 Panic disorder [episodic paroxysmal anxiety]
CPT/HCPCS: 93005; 93010

== ENCOUNTER 2018-06-20 02:14 | Emergency (ER) | payer OTHER ==
[~2018-06-20] VITALS: Ht 172.7 cm; Wt 65.8 kg
--- NOTE | 2018-06-20 04:10 | ED CARDIAC/CP/PALPITATIONS ---
History of Present Illness General Chief Complaint: Chest Pain Stated Complaint: CP/SOB Source: patient, old records Exam Limitations: no limitations Vital Signs & Intake/Output Vital Signs & Intake/Output Vital Signs Date Time Temp Pulse Resp B/P B/P Pulse O2 O2 Flow FiO2 Mean Ox Delivery Rate 06/20 0304 100 Room Air 06/20 0221 98.0 81 18 148/87 99 Room Air 06/20 0215 87 20 97 Room Air Allergies Coded Allergies: No Known Allergies (06/20/18) Reconcile Medications No Known Home Medications Triage Note: TRIAGE: PATIENT TO ER FROM HOME REPORTING "I WAKE UP A FEW TIMES IN PAST FEW NIGHTS W/ CP AND SOB." PATIENT REPROTING 4/10 CP AT THIS TIME. HX OF SAME. Triage Nurses Notes Reviewed? yes Onset: Just prior to arrival Duration: hour(s):, constant, continues in ED Timing: single episode today Quality/Severity: moderate, tightness Location: substernal Radiation: no radiation Activities at Onset: rest Prior Chest Pain/Card Workup: echocardiography, stress test Modifying Factors: Improves With: rest. Nitro Today/Relief: no nitro taken today Aspirin Today: no aspirin today Associated Symptoms: shortness of breath HPI: Prior to admission patient complains of tight substernal chest pain nonradiating constant associated with shortness of breath anxiety difficulty sleeping. He denies fever chills nausea vomiting diarrhea abdominal pain headache dysuria rash bleeding cough. Past History Travel History Traveled to [place] past 21 day No Medical History Any Pertinent Medical History? 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 No Review of Systems Review of Systems Constitutional: Reports: no symptoms. EENTM: Reports: no symptoms. Respiratory: Reports: no symptoms, cough. Cardiovascular: Reports: see HPI, chest pain. GI: Reports: no symptoms. Genitourinary: Reports: no symptoms. Musculoskeletal: Reports: no symptoms. Skin: Reports: no symptoms. Neurological/Psychological: Reports: see HPI, anxiety. Hematologic/Endocrine: Reports: no symptoms. Immunologic/Allergic: Reports: no symptoms. All Other Systems: Reviewed and Negative Physical Exam Physical Exam General Appearance: well developed/nourished, alert, awake, anxious, mild distress Head: atraumatic, normal appearance Eyes: Bilateral: normal appearance, PERRL, EOMI. Ears, Nose, Throat: normal pharynx, normal ENT inspection Neck: normal inspection, supple, full range of motion, no midline tenderness Respiratory: normal breath sounds, chest non-tender, no respiratory distress, quiet respiration, lungs clear Cardiovascular: regular rate/rhythm, normal peripheral pulses, norml femoral pulses equa Peripheral Pulses: 4+ carotid (R), 4+ carotid (L) Gastrointestinal: normal bowel sounds, soft, non-tender, no organomegaly Back: normal inspection, normal range of motion, no vertebral tenderness Extremities: normal inspection, normal capillary refill, normal range of motion, no edema Neurologic/Psych: no motor/sensory deficits, awake, alert, oriented x 3, normal gait, hot mill observer II-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 Skin: intact, normal color, warm/dry Lymphatic: no anterior cervical papi Core Measures ACS in differential dx? Yes No ASA d/t Medical Contraindication CVA/TIA Diagnosis No Sepsis Present: No Sepsis Focused Exam Completed? No Progress Differential Diagnosis: atrial fibrillation, costochondritis, musculoskeletal pain, myocarditis, pericarditis Plan of Care: Orders Procedure Date/time Status EKG 06/20 223 Active Initial ED EKG: normal axis, normal intervals, normal p-waves, normal QRS complex, normal sinus rhythm, no ST T wave changes Prior EKG: unchanged Rhythm Strip: normal sinus rhythm Departure Departure Time of Disposition: 408 Disposition: HOME OR SELF CARE Condition: Stable Clinical Impression Primary Impression: Chest pain syndrome Referrals: Kj LOVE,Antonio Kerr (PCP/Family) Departure Forms: Customer Survey General Discharge Information Prescriptions: Current Visit Scripts No Known Home Medications Critical Care Note Critical Care Note Critical Care Time: non-applicable
[2018-06-20 04:22] VITALS: BP 145/83
== END 2018-06-20 04:23 ==
LOC: ERH 02:14
DX: R07.1 Chest pain on breathing (principal); R06.02 Shortness of breath; R41.9 Unspecified symptoms and signs involving cognitive functions and awareness
CPT/HCPCS: 93005; 93010

== ENCOUNTER 2018-07-03 01:42 | Emergency (ER) | payer OTHER ==
[~2018-07-03] VITALS: Ht 172.7 cm; Wt 68.0 kg
[2018-07-03 01:54] VITALS: BP 152/82
--- NOTE | 2018-07-03 01:55 | ED GENERAL ADULT ---
History of Present Illness General Chief Complaint: Chest Pain Stated Complaint: WOKE UP WITH CHEST PAIN Source: patient Exam Limitations: no limitations Vital Signs & Intake/Output Vital Signs & Intake/Output Vital Signs Date Time Temp Pulse Resp B/P B/P Pulse O2 O2 Flow FiO2 Mean Ox Delivery Rate 07/03 0156 98 Room Air 07/03 0154 98.7 64 18 152/82 96 Room Air Allergies Coded Allergies: No Known Allergies (06/20/18) Reconcile Medications No Known Home Medications Triage Nurses Notes Reviewed? yes Onset: Abrupt Duration: minute(s): Timing: single episode today Injury Environment: home Severity: mild Modifying Factors: Improves With: rest. Associated Symptoms: anxiety/palpitations HPI: 22 yo gentleman presents with acute onset of palpitations and anxiety, that awoke him from sleep , lasted several minutes, and self resolved. He notes this is similar to prior episodes that he has had. He notes no triggers, denies si/hi/drug use. 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 He is otherwise well and is feeling well presently. Past History Travel History Traveled to [place] past 21 day No Medical History Any Pertinent Medical History? 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 No Review of Systems Review of Systems Constitutional: Reports: no symptoms. EENTM: Reports: no symptoms. Respiratory: Reports: no symptoms. Cardiovascular: Reports: no symptoms. GI: Reports: no symptoms. Genitourinary: Reports: no symptoms. Musculoskeletal: Reports: no symptoms. Skin: Reports: no symptoms. Neurological/Psychological: Reports: no symptoms. Hematologic/Endocrine: Reports: no symptoms. Immunologic/Allergic: Reports: no symptoms. All Other Systems: Reviewed and Negative Physical Exam Physical Exam General Appearance: no apparent distress, alert Comments: Physical Exam Physical Exam General Appearance: well developed/nourished, no apparent distress Head: atraumatic, normal appearance Eyes: Bilateral: normal appearance. Ears, Nose, Throat: normal pharynx, normal ENT inspection Neck: normal inspection, supple, full range of motion Respiratory: normal breath sounds, chest non-tender, no respiratory distress, quiet respiration, lungs clear Cardiovascular: regular rate/rhythm Gastrointestinal: normal bowel sounds, soft, non-tender, no organomegaly Back: normal inspection, normal range of motion Extremities: normal inspection, normal capillary refill, normal range of motion, no edema Neurologic/Psych: no motor/sensory deficits, awake, alert, oriented x 3 Skin: intact, normal color, warm/dry Core Measures ACS in differential dx? No CVA/TIA Diagnosis: No Sepsis Present: No Sepsis Focused Exam Completed? No Progress Differential Diagnoses I considered the following diagnoses in my evaluation of the patient: Panic versus anxiety versus other Plan of Care: Orders Procedure Date/time Status EKG 07/03 147 Active Initial ED EKG: sinus no acute changes Departure Departure Disposition: HOME OR SELF CARE Condition: Stable Clinical Impression Primary Impression: Chest pain Secondary Impressions: Chronic anxiety Referrals: Kj LOVE,Antonio Kerr (PCP/Family) Departure Forms: Customer Survey General Discharge Information Prescriptions: Current Visit Scripts No Known Home Medications Comments Discussed at great length. EKG is unchanged from prior. Patient safe for discharge. Close follow-up advice. Critical Care Note Critical Care Note Critical Care Time: non-applicable
== END 2018-07-03 02:36 ==
LOC: ERH 01:42
DX: R07.9 Chest pain, unspecified (principal); F41.9 Anxiety disorder, unspecified; R00.2 Palpitations
CPT/HCPCS: 93005; 93010